=== PATIENT | female | born 2005 | race Caucasian/White ===

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

== ENCOUNTER 2023-01-02 09:19 | Emergency (ER) | payer BC, OTHER ==
[~2023-01-02] VITALS: Ht 149.9 cm; Wt 52.3 kg
--- OUTSIDE RECORDS SUMMARY | ~2023-01-02 | XMS | Continuity of Care Document ---
Demographics + + + | Address | [address] | | | [place] [address] | + + + | Preferred Language | Unknown | + + + | Marital Status | | + + + | Latter-Day Affiliation | Unknown | + + + | Race | White | + + + | Ethnic Group | Not or | + + + Author + + + | Author | [facility] | + + + | Organization | [facility] | + + + | Address | [address] | | | [place] [address] | + + + | Phone | | + + + Care Team Providers + + + + | [facility] Attendant Name | Role | Phone | + + + + Unavailable | Unavailable | + + + + Unavailable | Unavailable | + + + + Unavailable | Unavailable | + + + + Unavailable | Unavailable | + + + + Unavailable | Unavailable | + + + + Allergies and Intolerances + + + + + + | date | description | facility | reaction | severity | + + + + + + | (no date) | No Known Drug | [facility] | (no reaction) | (no severity) | | | Allergies | | | | + + + + + + Encounters No information. Functional Status No information. Immunizations No information. Medications + + + + | date | description | facility | + + + + | 2022-11-01 00:00 | CETIRIZINE HCL | [facility] | + + + + | 2022-12-06 00:00 | CETIRIZINE HCL | [facility] | + + + + | 2022-12-19 00:00 | CETIRIZINE HCL | [facility] | + + + + | 2022-12-22 00:00 | CETIRIZINE HCL | [facility] | + + + + | 2021-11-13 00:00 | CETIRIZINE HCL | [facility] | + + + + | 2021-11-22 00:00 | CETIRIZINE HCL | [facility] | + + + + | 2021-12-01 00:00 | CETIRIZINE HCL | [facility] | + + + + | 2022-04-27 00:00 | CETIRIZINE HCL | [facility] | + + + + | 2022-11-01 00:00 | CETIRIZINE HCL | [facility] | + + + + | 2022-12-06 00:00 | CETIRIZINE HCL | [facility] | + + + + | 2022-12-19 00:00 | CETIRIZINE HCL | [facility] | + + + + | 2022-12-22 00:00 | CETIRIZINE HCL | [facility] | + + + + | 2021-11-13 00:00 | DIPHENHYDRAMINE HCL | [facility] | + + + + | 2021-11-22 00:00 | DIPHENHYDRAMINE HCL | [facility] | + + + + | 2021-12-01 00:00 | DIPHENHYDRAMINE HCL | [facility] | + + + + | 2022-04-27 00:00 | DIPHENHYDRAMINE HCL | [facility] | + + + + | 2022-11-01 00:00 | DIPHENHYDRAMINE HCL | [facility] | + + + + | 2022-12-06 00:00 | DIPHENHYDRAMINE HCL | [facility] | + + + + | 2022-12-19 00:00 | DIPHENHYDRAMINE HCL | [facility] | + + + + | 2022-12-22 00:00 | DIPHENHYDRAMINE HCL | [facility] | + + + + | 2021-11-13 00:00 | WHEAT DEXTRIN | [facility] | + + + + | 2021-11-22 00:00 | WHEAT DEXTRIN | [facility] | + + + + | 2021-12-01 00:00 | WHEAT DEXTRIN | [facility] | + + + + | 2022-04-27 00:00 | WHEAT DEXTRIN | [facility] | + + + + | 2022-11-01 00:00 | WHEAT DEXTRIN | [facility] | + + + + | 2022-12-06 00:00 | WHEAT DEXTRIN | [facility] | + + + + | 2022-12-19 00:00 | WHEAT DEXTRIN | [facility] | + + + + | 2022-12-22 00:00 | WHEAT DEXTRIN | [facility] | + + + + | 2021-11-13 00:00 | DOCUSATE CALCIUM | [facility] | + + + + | 2021-11-22 00:00 | DOCUSATE CALCIUM | [facility] | + + + + | 2021-12-01 00:00 | DOCUSATE CALCIUM | [facility] | + + + + | 2022-04-27 00:00 | DOCUSATE CALCIUM | [facility] | + + + + | 2022-11-01 00:00 | DOCUSATE CALCIUM | [facility] | + + + + | 2022-12-06 00:00 | DOCUSATE CALCIUM | [facility] | + + + + | 2022-12-19 00:00 | DOCUSATE CALCIUM | [facility] | + + + + | 2022-12-22 00:00 | DOCUSATE CALCIUM | [facility] | + + + + | 2021-11-13 00:00 | FLUTICASONE PROPIONATE 50 | [facility] | | | [facility] | | + + + + | 2021-11-22 00:00 | FLUTICASONE PROPIONATE 50 | [facility] | | | [facility] | | + + + + | 2021-12-01 00:00 | FLUTICASONE PROPIONATE 50 | [facility] | | | [facility] | | + + + + | 2022-04-27 00:00 | FLUTICASONE PROPIONATE 50 | [facility] | | | [facility]CG | | + + + + | 2021-11-01 00:00 | CEPHALEXIN | [facility] | + + + + | 2021-11-01 00:00 | CEPHALEXIN | [facility] | + + + + | 2021-11-01 00:00 | CEPHALEXIN | [facility] | + + + + | 2021-11-13 00:00 | LITHIUM CARBONATE | [facility] | + + + + | 2021-11-22 00:00 | LITHIUM CARBONATE | [facility] | + + + + | 2021-12-01 00:00 | LITHIUM CARBONATE | [facility] | + + + + | 2022-04-27 00:00 | LITHIUM CARBONATE | [facility] | + + + + | 2022-11-01 00:00 | LITHIUM CARBONATE | [facility] | + + + + | 2022-12-06 00:00 | LITHIUM CARBONATE | [facility] | + + + + | 2022-12-19 00:00 | LITHIUM CARBONATE | [facility] | + + + + | 2022-12-22 00:00 | LITHIUM CARBONATE | [facility] | + + + + | 2021-11-13 00:00 | MELATONIN | [facility] | + + + + | 2021-11-22 00:00 | MELATONIN | [facility] | + + + + | 2021-12-01 00:00 | MELATONIN | [facility] | + + + + | 2022-04-27 00:00 | MELATONIN | [facility] | + + + + | 2022-11-01 00:00 | MELATONIN | [facility] | + + + + | 2022-12-06 00:00 | MELATONIN | [facility] | + + + + | 2022-12-19 00:00 | MELATONIN | [facility] | + + + + | 2022-12-22 00:00 | MELATONIN | [facility] | + + + + | 2021-11-13 00:00 | OLANZAPINE | [facility] | + + + + | 2021-11-22 00:00 | OLANZAPINE | [facility] | + + + + | 2021-12-01 00:00 | OLANZAPINE | [facility] | + + + + | 2022-04-27 00:00 | OLANZAPINE | [facility] | + + + + | 2022-11-01 00:00 | OLANZAPINE | [facility] | + + + + | 2022-12-06 00:00 | OLANZAPINE | [facility] | + + + + | 2022-12-19 00:00 | OLANZAPINE | [facility] | + + + + | 2022-12-22 00:00 | OLANZAPINE | [facility] | + + + + | 2021-11-13 00:00 | OLANZAPINE | [facility] | + + + + | 2021-11-22 00:00 | OLANZAPINE | [facility] | + + + + | 2021-12-01 00:00 | OLANZAPINE | [facility] | + + + + | 2022-04-27 00:00 | OLANZAPINE | [facility] | + + + + | 2021-11-13 00:00 | PRAZOSIN HCL | [facility] | + + + + | 2021-11-22 00:00 | PRAZOSIN HCL | [facility] | + + + + | 2021-12-01 00:00 | PRAZOSIN HCL | [facility] | + + + + | 2022-04-27 00:00 | PRAZOSIN HCL | [facility] | + + + + | 2022-11-01 00:00 | PRAZOSIN HCL | [facility] | + + + + | 2022-12-06 00:00 | PRAZOSIN HCL | [facility] | + + + + | 2022-12-19 00:00 | PRAZOSIN HCL | [facility] | + + + + | 2022-12-22 00:00 | PRAZOSIN HCL | [facility] | + + + + | 2021-11-13 00:00 | ACETAMINOPHEN | [facility] | + + + + | 2021-11-22 00:00 | ACETAMINOPHEN | [facility] | + + + + | 2021-12-01 00:00 | ACETAMINOPHEN | [facility] | + + + + | 2022-04-27 00:00 | ACETAMINOPHEN | [facility] | + + + + | 2022-11-01 00:00 | ACETAMINOPHEN | [facility] | + + + + | 2022-12-06 00:00 | ACETAMINOPHEN | [facility] | + + + + | 2022-12-19 00:00 | ACETAMINOPHEN | [facility] | + + + + | 2022-12-22 00:00 | ACETAMINOPHEN | [facility] | + + + + | 2022-04-27 00:00 | CIPROFLOXACIN HCL/DEXAMETH | [facility] | | | | | + + + + | 2022-12-19 00:00 | AMOXICILLIN/POTASSIUM CLAV | [facility] | | | | | + + + + | 2021-11-13 00:00 | VENLAFAXINE HCL | [facility] | + + + + | 2021-11-22 00:00 | VENLAFAXINE HCL | [facility] | + + + + | 2021-12-01 00:00 | VENLAFAXINE HCL | [facility] | + + + + | 2022-04-27 00:00 | VENLAFAXINE HCL | [facility] | + + + + | 2022-11-01 00:00 | VENLAFAXINE HCL | [facility] | + + + + | 2022-12-06 00:00 | VENLAFAXINE HCL | [facility] | + + + + | 2022-12-19 00:00 | VENLAFAXINE HCL | [facility] | + + + + | 2022-12-22 00:00 | VENLAFAXINE HCL | [facility] | + + + + | 2021-11-13 00:00 | HYDROCODONE | [facility] | | | BIT/ACETAMINOPHEN | | + + + + | 2021-11-22 00:00 | HYDROCODONE | [facility] | | | BIT/ACETAMINOPHEN | | + + + + | 2021-12-01 00:00 | HYDROCODONE | [facility] | | | BIT/ACETAMINOPHEN | | + + + + | 2022-04-27 00:00 | HYDROCODONE | [facility] | | | BIT/ACETAMINOPHEN | | + + + + | 2022-11-01 00:00 | HYDROCODONE | [facility] | | | BIT/ACETAMINOPHEN | | + + + + | 2022-12-06 00:00 | HYDROCODONE | [facility] | | | BIT/ACETAMINOPHEN | | + + + + | 2022-12-19 00:00 | HYDROCODONE | [facility] | | | BIT/ACETAMINOPHEN | | + + + + | 2022-12-22 00:00 | HYDROCODONE | [facility] | | | BIT/ACETAMINOPHEN | | + + + + | 2021-11-13 00:00 | CLONIDINE HCL | [facility] | + + + + | 2021-11-22 00:00 | CLONIDINE HCL | [facility] | + + + + | 2021-12-01 00:00 | CLONIDINE HCL | [facility] | + + + + | 2022-04-27 00:00 | CLONIDINE HCL | [facility] | + + + + | 2022-11-01 00:00 | CLONIDINE HCL | [facility] | + + + + | 2022-12-06 00:00 | CLONIDINE HCL | [facility] | + + + + | 2022-12-19 00:00 | CLONIDINE HCL | [facility] | + + + + | 2022-12-22 00:00 | CLONIDINE HCL | [facility] | + + + + | 2021-11-13 00:00 | LOPERAMIDE HCL | [facility] | + + + + | 2021-11-22 00:00 | LOPERAMIDE HCL | [facility] | + + + + | 2021-12-01 00:00 | LOPERAMIDE HCL | [facility] | + + + + | 2022-04-27 00:00 | LOPERAMIDE HCL | [facility] | + + + + Problems + + + + | date | description | facility | + + + + | 2021-10-09 00:00 | Rectal hemorrhage | [facility] | + + + + | 2021-10-09 00:00 | Rectal hemorrhage | [facility] | + + + + | 2021-10-09 00:00 | Rectal hemorrhage | [facility] | + + + + | 2021-10-09 00:00 | Metal foreign body in | [facility] | | | abdomen | | + + + + | 2021-10-09 00:00 | Metal foreign body in | [facility] | | | abdomen | | + + + + | 2021-10-09 00:00 | Metal foreign body in | [facility] | | | abdomen | | + + + + | 2021-10-09 18:07 | CONSTIPATION, UNSPECIFIED | [facility] | + + + + | 2021-10-09 18:07 | HEMORRHAGE OF ANUS AND | [facility] | | | RECTUM | | + + + + | 2021-10-09 18:07 | COGNITIVE COMMUNICATION | [facility] | | | DEFICIT | | + + + + | 2021-10-09 18:07 | SUPERFICIAL FOREIGN BODY | [facility] | | | OF ABDOMINAL WALL, INIT | | | | ENCNTR | | + + + + | 2021-10-09 18:07 | PNCTR W FB OF ABD WALL, | [facility] | | | UNSP Q W PENET PERIT CAV, | | + + + + | 2021-10-09 18:07 | OTH FOREIGN BODY OR OBJECT | [facility] | | | ENTERING THROUGH SKIN, | | + + + + | 2021-10-09 18:07 | OTHER MANAGER PHILOSOPHY (CURRENT) | [facility] | | | DRUG THERAPY | | + + + + | 2021-11-01 00:00 | Wound disruption | [facility] | + + + + | 2021-11-01 00:00 | Wound disruption | [facility] | + + + + | 2021-11-01 00:00 | Wound disruption | [facility] | + + + + | 2021-11-20 00:00 | Alcoholic intoxication | [facility] | + + + + | 2021-11-20 00:00 | Alcoholic intoxication | [facility] | + + + + | 2021-11-20 00:00 | Alcoholic intoxication | [facility] | + + + + | 2021-11-24 00:00 | Intentional ibuprofen | [facility] | | | overdose | | + + + + | 2021-11-24 00:00 | Intentional ibuprofen | [facility] | | | overdose | | + + + + | 2021-11-28 00:00 | Intentional overdose | [facility] | + + + + | 2021-11-28 00:00 | Intentional overdose | [facility] | + + + + | 2022-02-23 10:33 | CEREBRAL PALSY, | [facility] | | | UNSPECIFIED | | + + + + | 2022-02-23 10:33 | UNSPECIFIED ABNORMALITIES | [facility] | | | OF GAIT AND MOBILITY | | + + + + | 2022-03-09 08:50 | CEREBRAL PALSY, | [facility] | | | UNSPECIFIED | | + + + + | 2022-04-13 08:24 | CEREBRAL PALSY, | [facility] | | | UNSPECIFIED | | + + + + | 2022-04-26 20:55 | OTORRHAGIA, RIGHT EAR | [facility] | + + + + | 2022-04-27 00:00 | Blood in right ear canal | [facility] | + + + + | 2022-04-27 00:00 | Blood in right ear canal | [facility] | + + + + | 2022-05-12 09:35 | CEREBRAL PALSY, | [facility] | | | UNSPECIFIED | | + + + + | 2022-06-29 09:24 | RESIDUAL FOREIGN BODY IN | [facility] | | | SOFT TISSUE | | + + + + | 2022-06-29 15:16 | FUNCTIONAL URINARY | [facility] | | | INCONTINENCE | | + + + + | 2022-07-23 15:02 | FUNCTIONAL URINARY | [facility] | | | INCONTINENCE | | + + + + | 2022-08-04 12:46 | UNSPECIFIED LUMP IN THE | [facility] | | | LEFT BREAST, UNSPECIFIED | | | | QUADRANT | | + + + + | 2022-10-26 00:00 | Suicidal ideation | [facility] | + + + + | 2022-10-26 00:00 | Suicidal ideation | [facility] | + + + + | 2022-10-26 00:00 | Self-cutting of wrist | [facility] | + + + + | 2022-10-26 00:00 | Self-cutting of wrist | [facility] | + + + + | 2022-10-26 18:29 | SUICIDAL IDEATIONS | [facility] | + + + + | 2022-10-26 18:29 | INTENTIONAL SELF-HARM BY | [facility] | | | UNSP SHARP OBJECT, INIT E | | + + + + | 2022-10-26 18:29 | OTHER MANAGER PHILOSOPHY (CURRENT) | [facility] | | | DRUG THERAPY | | + + + + | 2022-12-05 22:31 | Mental disorder, not | [facility] | | | otherwise specified | | + + + + | 2022-12-05 22:31 | RESTLESSNESS AND AGITATION | [facility] | | | | | + + + + | 2022-12-05 22:31 | LACERATION W/O FOREIGN | [facility] | | | BODY OF RIGHT FOREARM, INIT | | | | | | + + + + | 2022-12-05 22:31 | INTENTIONAL SELF-HARM BY | [facility] | | | UNSP SHARP OBJECT, INIT E | | + + + + | 2022-12-05 22:31 | OTHER MANAGER PHILOSOPHY (CURRENT) | [facility] | | | DRUG THERAPY | | + + + + | 2022-12-18 15:43 | RESIDUAL FOREIGN BODY IN | [facility] | | | SOFT TISSUE | | + + + + | 2022-12-18 15:43 | NONSUICIDAL SELF-HARM | [facility] | + + + + | 2022-12-19 00:00 | Cellulitis of right ankle | [facility] | + + + + | 2022-12-19 20:38 | CELLULITIS OF RIGHT LOWER | [facility] | | | LIMB | | + + + + | 2022-12-19 20:38 | LOCALIZED SWELLING, MASS | [facility] | | | AND LUMP, RIGHT LOWER LIMB | | + + + + | 2022-12-19 20:38 | OTHER MANAGER PHILOSOPHY (CURRENT) | [facility] | | | DRUG THERAPY | | + + + + | 2022-12-22 00:00 | Contusion of left lower | [facility] | | | leg | | + + + + | 2022-12-22 18:51 | PAIN IN LEFT LOWER LEG | [facility] | + + + + | 2022-12-22 18:51 | CONTUSION OF LEFT LOWER | [facility] | | | LEG, INITIAL ENCOUNTER | | + + + + | 2022-12-22 18:51 | SUPERFICIAL FOREIGN BODY, | [facility] | | | LEFT LOWER LEG, INITIAL | | + + + + | 2022-12-22 18:51 | FALL SAME LEV FROM | [facility] | | | SLIP/TRIP W STRIKE AGNST | | | | OTH OB | | + + + + | 2022-12-22 18:51 | OTHER MANAGER PHILOSOPHY (CURRENT) | [facility] | | | DRUG THERAPY | | + + + + Procedures + + + + | date | description | facility | + + + + | 2021-10-10 00:00 | EXTIRPATION OF MATTER FROM [facility] | | | TONSILS, OPEN APPROACH | | + + + + | 2021-10-10 00:00 | EXTIRPATION OF MATTER FROM [facility] | | | TONSILS, OPEN APPROACH | | + + + + | 2021-10-10 00:00 | EXTIRPATION OF MATTER FROM | [facility] | | | PERITONEAL CAVITY, OPEN | | | | APPROACH | | + + + + | 2021-10-10 00:00 | EXTIRPATION OF MATTER FROM | [facility] | | | PERITONEAL CAVITY, OPEN | | | | APPROACH | | + + + + | 2021-10-09 00:00 | REMOVE PHARYNX FOREIGN | [facility] | | | BODY | | + + + + | 2021-10-09 00:00 | REMOVE PHARYNX FOREIGN | [facility] | | | BODY | | + + + + | 2021-10-09 00:00 | REMOVE PHARYNX FOREIGN | [facility] | | | BODY | | + + + + | 2021-10-09 00:00 | REMOVE RECTAL OBSTRUCTION | [facility] | + + + + | 2021-10-09 00:00 | REMOVE RECTAL OBSTRUCTION | [facility] | + + + + | 2021-10-09 00:00 | REMOVE RECTAL OBSTRUCTION | [facility] | + + + + | 2021-10-09 00:00 | REMOVE FOREIGN BODY | [facility] | | | ADBOMEN | | + + + + | 2021-10-09 00:00 | REMOVE FOREIGN BODY | [facility] | | | ADBOMEN | | + + + + | 2021-10-09 00:00 | REMOVE FOREIGN BODY | [facility] | | | ADBOMEN | | + + + + Results/Labs +--------+--------+ +---------+--------+---------+ | test | date | facility | value | unit | notes | +--------+--------+ +---------+--------+---------+ + + | Result panel 1 | + + + + + +--------+ + + | | 2021-10-09 | [facility] | 11.0 | (missing) | (missing) | | (unavailable | 19:40 | [facility] | | | | + + + +--------+ + + + + | Result panel 2 | + + + + + +--------+ + + | | 2021-10-09 | [facility] | 4.27 | (missing) | (missing) | | (unavailable | 19:40 | [facility] | | | | + + + +--------+ + + + + | Result panel 3 | + + + + + +--------+ + + | | 2021-10-09 | [facility] | 11.7 | (missing) | (missing) | | (unavailable | 19:40 | [facility] | | | | + + + +--------+ + + + + | Result panel 4 | + + + + + +--------+ + + | | 2021-10-09 | [facility] | 35.4 | (missing) | (missing) | | (unavailable | 19:40 | [facility] | | | | + + + +--------+ + + + + | Result panel 5 | + + + + + +--------+ + + | | 2021-10-09 | [facility] | 83.0 | (missing) | (missing) | | (unavailable | 19:40 | [facility] | | | | + + + +--------+ + + + + | Result panel 6 | + + + + + +--------+ + + | | 2021-10-09 | [facility] | 27.4 | (missing) | (missing) | | (unavailable | 19:40 | [facility] | | | | + + + +--------+ + + + + | Result panel 7 | + + + + + +--------+ + + | | 2021-10-09 | [facility] | 33.1 | (missing) | (missing) | | (unavailable | 19:40 | [facility] | | | | + + + +--------+ + + + + | Result panel 8 | + + + + + +--------+ + + | | 2021-10-09 | [facility] | 13.7 | (missing) | (missing) | | (unavailable | 19:40 | [facility] | | | | + + + +--------+ + + + + | Result panel 9 | + + + + + +-------+ + + | | 2021-10-09 | [facility] | 415 | (missing) | (missing) | | (unavailable | 19:40 | [facility] | | | | + + + +-------+ + + + + | Result panel 10 | + + + + + +--------+ + + | | 2021-10-09 | [facility] | 75.0 | (missing) | (missing) | | (unavailable | 19:40 | [facility] | | | | + + + +--------+ + + + + | Result panel 11 | + + + + + +--------+ + + | | 2021-10-09 | [facility] | 20.0 | (missing) | (missing) | | (unavailable | 19:40 | [facility] | | | | + + + +--------+ + + + + | Result panel 12 | + + + + + +-------+ + + | | 2021-10-09 | [facility] | 5.0 | (missing) | (missing) | | (unavailable | 19:40 | [facility] | | | | + + + +-------+ + + + + | Result panel 13 | + + + + + +-------+ + + | | 2021-10-09 | [facility] | 0.0 | (missing) | (missing) | | (unavailable | 19:40 | [facility] | | | | + + + +-------+ + + + + | Result panel 14 | + + + + + +-------+ + + | | 2021-10-09 | [facility] | 0.0 | (missing) | (missing) | | (unavailable | 19:40 | [facility] | | | | + + + +-------+ + + + + | Result panel 15 | + + + + + +--------+ + + | | 2021-10-09 | [facility] | 12.9 | (missing) | (missing) | | (unavailable | 19:40 | [facility] | | | | + + + +--------+ + + + + | Result panel 16 | + + + + + +--------+ + + | | 2021-10-09 | [facility] | 0.99 | (missing) | (missing) | | (unavailable | 19:40 | [facility] | | | | + + + +--------+ + + + + | Result panel 17 | + + + + + +--------+ + + | | 2021-10-09 | [facility] | 33.9 | (missing) | (missing) | | (unavailable | 19:40 | [facility] | | | | + + + +--------+ + + + + | Result panel 18 | + + + + + +------+---------+ + | | 2021-10-09 | [facility] | 93 | mg/dL | (missing) | | (unavailable | 19:40 | [facility] | | | | + + + +------+---------+ + + + | Result panel 19 | + + + + + +-----+---------+ + | | 2021-10-09 | [facility] | 8 | mg/dL | (missing) | | (unavailable | 19:40 | [facility] | | | | + + + +-----+---------+ + + + | Result panel 20 | + + + + + +--------+---------+ + | | 2021-10-09 | [facility] | 0.76 | mg/dL | (missing) | | (unavailable | 19:40 | [facility] | | | | + + + +--------+---------+ + + + | Result panel 21 | + + + + + + + + + | | 2021-10-09 | [facility] | > 60.00 | (missing) | (missing) | | (unavailable | 19:40 | [facility] | | | | + + + + + + + + + | Result panel 22 | + + + + + +---------+ + + | | 2021-10-09 | [facility] | 10.52 | (missing) | (missing) | | (unavailable | 19:40 | [facility] | | | | + + + +---------+ + + + + | Result panel 23 | + + + + + +-------+ + + | | 2021-10-09 | [facility] | 137 | (missing) | (missing) | | (unavailable | 19:40 | [facility] | | | | + + + +-------+ + + + + | Result panel 24 | + + + + + +-------+ + + | | 2021-10-09 | [facility] | 3.7 | (missing) | (missing) | | (unavailable | 19:40 | [facility] | | | | + + + +-------+ + + + + | Result panel 25 | + + + + + +-------+ + + | | 2021-10-09 | [facility] | 104 | (missing) | (missing) | | (unavailable | 19:40 | [facility] | | | | + + + +-------+ + + + + | Result panel 26 | + + + + + +------+ + + | | 2021-10-09 | [facility] | 26 | (missing) | (missing) | | (unavailable | 19:40 | [facility] | | | | + + + +------+ + + + + | Result panel 27 | + + + + + +--------+ + + | | 2021-10-09 | [facility] | 10.7 | (missing) | (missing) | | (unavailable | 19:40 | [facility] | | | | + + + +--------+ + + + + | Result panel 28 | + + + + + +-------+---------+ + | | 2021-10-09 | [facility] | 9.6 | mg/dL | (missing) | | (unavailable | 19:40 | [facility] | | | | + + + +-------+---------+ + + + | Result panel 29 | + + + + + +-------+ + + | | 2021-10-09 | [facility] | 8.1 | (missing) | (missing) | | (unavailable | 19:40 | [facility] | | | | + + + +-------+ + + + + | Result panel 30 | + + + + + +-------+ + + | | 2021-10-09 | [facility] | 3.9 | (missing) | (missing) | | (unavailable | 19:40 | [facility] | | | | + + + +-------+ + + + + | Result panel 31 | + + + + + +-------+ + + | | 2021-10-09 | [facility] | 4.2 | (missing) | (missing) | | (unavailable | 19:40 | [facility] | | | | + + + +-------+ + + + + | Result panel 32 | + + + + + +--------+ + + | | 2021-10-09 | [facility] | 0.93 | (missing) | (missing) | | (unavailable | 19:40 | [facility] | | | | + + + +--------+ + + + + | Result panel 33 | + + + + + +-------+ + + | | 2021-10-09 | [facility] | 0.4 | (missing) | (missing) | | (unavailable | 19:40 | [facility] | | | | + + + +-------+ + + + + | Result panel 34 | + + + + + +------+ + + | | 2021-10-09 | [facility] | 18 | (missing) | (missing) | | (unavailable | 19:40 | [facility] | | | | + + + +------+ + + + + | Result panel 35 | + + + + + +------+ + + | | 2021-10-09 | [facility] | 18 | (missing) | (missing) | | (unavailable | 19:40 | [facility] | | | | + + + +------+ + + + + | Result panel 36 | + + + + + +------+ + + | | 2021-10-09 | [facility] | 96 | (missing) | (missing) | | (unavailable | 19:40 | [facility] | | | | + + + +------+ + + + + | Result panel 37 | + + + + + + + + + | | 2021-10-09 | [facility] | NEGATIVE | (missing) | (missing) | | (unavailable | 19:40 | [facility] | | | | + + + + + + + + + | Result panel 38 | + + + + + +--------+ + + | | 2021-10-09 | [facility] | 12.9 | (missing) | (missing) | | (unavailable | 19:40 | [facility] | | | | + + + +--------+ + + + + | Result panel 39 | + + + + + +--------+ + + | | 2021-10-09 | [facility] | 0.99 | (missing) | (missing) | | (unavailable | 19:40 | [facility] | | | | + + + +--------+ + + + + | Result panel 40 | + + + + + +--------+ + + | | 2021-10-09 | [facility] | 33.9 | (missing) | (missing) | | (unavailable | 19:40 | [facility] | | | | + + + +--------+ + + + + | Result panel 41 | + + + + + +--------+ + + | | 2021-10-09 | [facility] | 12.9 | (missing) | (missing) | | (unavailable | 19:40 | [facility] | | | | + + + +--------+ + + + + | Result panel 42 | + + + + + +--------+ + + | | 2021-10-09 | [facility] | 0.99 | (missing) | (missing) | | (unavailable | 19:40 | [facility] | | | | + + + +--------+ + + + + | Result panel 43 | + + + + + +--------+ + + | | 2021-10-09 | [facility] | 33.9 | (missing) | (missing) | | (unavailable | 19:40 | [facility] | | | | + + + +--------+ + + + + | Result panel 44 | + + + + + + + + + | | 2021-10-09 | [facility] | NEGATIVE | (missing) | (missing) | | (unavailable | 22:02 | [facility] | | | | + + + + + + + + + | Result panel 45 | + + + + + + + + + | | 2021-10-09 | [facility] | NEGATIVE | (missing) | (missing) | | (unavailable | 22:02 | [facility] | | | | + + + + + + + + + | Result panel 46 | + + + + + + + + + | | 2021-10-09 | [facility] | NEGATIVE | (missing) | (missing) | | (unavailable | 22:02 | [facility] | | | | + + + + + + + + + | Result panel 47 | + + + + + + + + + | | 2021-10-09 | [facility] | NEGATIVE | (missing) | (missing) | | (unavailable | 22:02 | [facility] | | | | + + + + + + + + + | Result panel 48 | + + + + + +--------+ + + | | 2021-11-20 | [facility] | 12.7 | (missing) | (missing) | | (unavailable | 18:40 | [facility] | | | | + + + +--------+ + + + + | Result panel 49 | + + + + + +--------+ + + | | 2021-11-20 | [facility] | 4.38 | (missing) | (missing) | | (unavailable | 18:40 | [facility] | | | | + + + +--------+ + + + + | Result panel 50 | + + + + + +--------+ + + | | 2021-11-20 | [facility] | 11.8 | (missing) | (missing) | | (unavailable | 18:40 | [facility] | | | | + + + +--------+ + + + + | Result panel 51 | + + + + + +--------+ + + | | 2021-11-20 | [facility] | 34.9 | (missing) | (missing) | | (unavailable | 18:40 | [facility] | | | | + + + +--------+ + + + + | Result panel 52 | + + + + + +--------+ + + | | 2021-11-20 | [facility] | 79.7 | (missing) | (missing) | | (unavailable | 18:40 | [facility] | | | | + + + +--------+ + + + + | Result panel 53 | + + + + + +--------+ + + | | 2021-11-20 | [facility] | 27.0 | (missing) | (missing) | | (unavailable | 18:40 | [facility] | | | | + + + +--------+ + + + + | Result panel 54 | + + + + + +--------+ + + | | 2021-11-20 | [facility] | 33.9 | (missing) | (missing) | | (unavailable | 18:40 | [facility] | | | | + + + +--------+ + + + + | Result panel 55 | + + + + + +--------+ + + | | 2021-11-20 | [facility] | 13.3 | (missing) | (missing) | | (unavailable | 18:40 | [facility] | | | | + + + +--------+ + + + + | Result panel 56 | + + + + + +-------+ + + | | 2021-11-20 | [facility] | 396 | (missing) | (missing) | | (unavailable | 18:40 | [facility] | | | | + + + +-------+ + + + + | Result panel 57 | + + + + + +--------+ + + | | 2021-11-20 | [facility] | 76.5 | (missing) | (missing) | | (unavailable | 18:40 | [facility] | | | | + + + +--------+ + + + + | Result panel 58 | + + + + + +--------+ + + | | 2021-11-20 | [facility] | 18.6 | (missing) | (missing) | | (unavailable | 18:40 | [facility] | | | | + + + +--------+ + + + + | Result panel 59 | + + + + + +-------+ + + | | 2021-11-20 | [facility] | 4.8 | (missing) | (missing) | | (unavailable | 18:40 | [facility] | | | | + + + +-------+ + + + + | Result panel 60 | + + + + + +-------+ + + | | 2021-11-20 | [facility] | 0.0 | (missing) | (missing) | | (unavailable | 18:40 | [facility] | | | | + + + +-------+ + + + + | Result panel 61 | + + + + + +-------+ + + | | 2021-11-20 | [facility] | 0.1 | (missing) | (missing) | | (unavailable | 18:40 | [facility] | | | | + + + +-------+ + + + + | Result panel 62 | + + + + + +-------+ + + | | 2021-11-20 | [facility] | 8.2 | (missing) | (missing) | | (unavailable | 18:40 | [facility] | | | | + + + +-------+ + + + + | Result panel 63 | + + + + + +-------+ + + | | 2021-11-20 | [facility] | 3.9 | (missing) | (missing) | | (unavailable | 18:40 | [facility] | | | | + + + +-------+ + + + + | Result panel 64 | + + + + + +-------+ + + | | 2021-11-20 | [facility] | 4.3 | (missing) | (missing) | | (unavailable | 18:40 | [facility] | | | | + + + +-------+ + + + + | Result panel 65 | + + + + + +--------+ + + | | 2021-11-20 | [facility] | 0.91 | (missing) | (missing) | | (unavailable | 18:40 | [facility] | | | | + + + +--------+ + + + + | Result panel 66 | + + + + + +-------+ + + | | 2021-11-20 | [facility] | 0.2 | (missing) | (missing) | | (unavailable | 18:40 | [facility] | | | | + + + +-------+ + + + + | Result panel 67 | + + + + + +------+ + + | | 2021-11-20 | [facility] | 19 | (missing) | (missing) | | (unavailable | 18:40 | [facility] | | | | + + + +------+ + + + + | Result panel 68 | + + + + + +------+ + + | | 2021-11-20 | [facility] | 15 | (missing) | (missing) | | (unavailable | 18:40 | [facility] | | | | + + + +------+ + + + + | Result panel 69 | + + + + + +------+ + + | | 2021-11-20 | [facility] | 88 | (missing) | (missing) | | (unavailable | 18:40 | [facility] | | | | + + + +------+ + + + + | Result panel 70 | + + + + + +---------+ + + | | 2021-11-20 | [facility] | 3.621 | (missing) | (missing) | | (unavailable | 18:40 | [facility] | | | | + + + +---------+ + + + + | Result panel 71 | + + + + + + + + + | | 2021-11-20 | [facility] | NEGATIVE | (missing) | (missing) | | (unavailable | 18:40 | [facility] | | | | + + + + + + + + + | Result panel 72 | + + + + + +--------+ + + | | 2021-11-20 | [facility] | < 10 | (missing) | (missing) | | (unavailable | 18:40 | [facility] | | | | + + + +--------+ + + + + | Result panel 73 | + + + + + + + + + | | 2021-11-20 | [facility] | < 2.0 mg/dL | (missing) | (missing) | | (unavailable | 18:40 | [facility] | | | | + + + + + + + + + | Result panel 74 | + + + + + +------+ + + | | 2021-11-20 | [facility] | // | (missing) | (missing) | | (unavailable | 18:40 | [facility] | | | | + + + +------+ + + + + | Result panel 75 | + + + + + +-------+ + + | | 2021-11-20 | [facility] | 1.1 | (missing) | (missing) | | (unavailable | 18:40 | [facility] | | | | + + + +-------+ + + + + | Result panel 76 | + + + + + +------+ + + | | 2021-11-20 | [facility] | // | (missing) | (missing) | | (unavailable | 18:40 | [facility] | | | | + + + +------+ + + + + | Result panel 77 | + + + + + +-------+ + + | | 2021-11-20 | [facility] | 131 | (missing) | (missing) | | (unavailable | 18:40 | [facility] | | | | + + + +-------+ + + + + | Result panel 78 | + + + + + + + + + | | 2021-11-20 | [facility] | POSITIVE | (missing) | (missing) | | (unavailable | 19:10 | [facility] | | | | + + + + + + + + + | Result panel 79 | + + + + + + + + + | | 2021-11-20 | [facility] | NEGATIVE | (missing) | (missing) | | (unavailable | 19:10 | [facility] | | | | + + + + + + + + + | Result panel 80 | + + + + + + + + + | | 2021-11-20 | [facility] | NEGATIVE | (missing) | (missing) | | (unavailable | 19:10 | [facility] | | | | + + + + + + + + + | Result panel 81 | + + + + + + + + + | | 2021-11-20 | [facility] | NEGATIVE | (missing) | (missing) | | (unavailable | 19:10 | [facility] | | | | + + + + + + + + + | Result panel 82 | + + + + + + + + + | | 2021-11-20 | [facility] | YELLOW | (missing) | (missing) | | (unavailable | 19:45 | [facility] | | | | + + + + + + + + + | Result panel 83 | + + + + + +---------+ + + | | 2021-11-20 | [facility] | CLEAR | (missing) | (missing) | | (unavailable | 19:45 | [facility] | | | | + + + +---------+ + + + + | Result panel 84 | + + + + + + + + + | | 2021-11-20 | [facility] | NEGATIVE | (missing) | (missing) | | (unavailable | 19:45 | [facility] | | | | + + + + + + + + + | Result panel 85 | + + + + + + + + + | | 2021-11-20 | [facility] | NEGATIVE | (missing) | (missing) | | (unavailable | 19:45 | [facility] | | | | + + + + + + + + + | Result panel 86 | + + + + + + + + + | | 2021-11-20 | [facility] | NEGATIVE | (missing) | (missing) | | (unavailable | 19:45 | [facility] | | | | + + + + + + + + + | Result panel 87 | + + + + + + + + + | | 2021-11-20 | [facility] | <=1.005 | (missing) | (missing) | | (unavailable | 19:45 | [facility] | | | | + + + + + + + + + | Result panel 88 | + + + + + + + + + | | 2021-11-20 | [facility] | NEGATIVE | (missing) | (missing) | | (unavailable | 19:45 | [facility] | | | | + + + + + + + + + | Result panel 89 | + + + + + +-------+ + + | | 2021-11-20 | [facility] | 5.5 | (missing) | (missing) | | (unavailable | 19:45 | [facility] | | | | + + + +-------+ + + + + | Result panel 90 | + + + + + + + + + | | 2021-11-20 | [facility] | NEGATIVE | (missing) | (missing) | | (unavailable | 19:45 | [facility] | | | | + + + + + + + + + | Result panel 91 | + + + + + + + + + | | 2021-11-20 | [facility] | NORMAL | (missing) | (missing) | | (unavailable | 19:45 | [facility] | | | | + + + + + + + + + | Result panel 92 | + + + + + + + + + | | 2021-11-20 | [facility] | NEGATIVE | (missing) | (missing) | | (unavailable | 19:45 | [facility] | | | | + + + + + + + + + | Result panel 93 | + + + + + + + + + | | 2021-11-20 | [facility] | NEGATIVE | (missing) | (missing) | | (unavailable | 19:45 | [facility] | | | | + + + + + + + + + | Result panel 94 | + + + + + +------+ + + | | 2021-11-20 | [facility] | No | (missing) | (missing) | | (unavailable | 19:45 | [facility] | | | | + + + +------+ + + + + | Result panel 95 | + + + + + + + + + | | 2021-11-20 | [facility] | CLEAN CATCH | (missing) | (missing) | | (unavailable | 19:45 | [facility] | | | | + + + + + + + + + | Result panel 96 | + + + + + + + + + | | 2021-11-20 | [facility] | NEGATIVE | (missing) | (missing) | | (unavailable | 19:45 | [facility] | | | | + + + + + + + + + | Result panel 97 | + + + + + + + + + | | 2021-11-20 | [facility] | NEGATIVE | (missing) | (missing) | | (unavailable | 19:45 | [facility] | | | | + + + + + + + + + | Result panel 98 | + + + + + + + + + | | 2021-11-20 | [facility] | NEGATIVE | (missing) | (missing) | | (unavailable | 19:45 | [facility] | | | | + + + + + + + + + | Result panel 99 | + + + + + + + + + | | 2021-11-20 | [facility] | NEGATIVE | (missing) | (missing) | | (unavailable | 19:45 | [facility] | | | | + + + + + + + + + | Result panel 100 | + + + + + + + + + | | 2021-11-20 | [facility] | NEGATIVE | (missing) | (missing) | | (unavailable | 19:45 | [facility] | | | | + + + + + + + + + | Result panel 101 | + + + + + + + + + | | 2021-11-20 | [facility] | NEGATIVE | (missing) | (missing) | | (unavailable | 19:45 | [facility] | | | | + + + + + + + + + | Result panel 102 | + + + + + + + + + | | 2021-11-20 | [facility] | NEGATIVE | (missing) | (missing) | | (unavailable | 19:45 | [facility] | | | | + + + + + + + + + | Result panel 103 | + + + + + + + + + | | 2021-11-20 | [facility] | NEGATIVE | (missing) | (missing) | | (unavailable | 19:45 | [facility] | | | | + + + + + + + + + | Result panel 104 | + + + + + + + + + | | 2021-11-20 | [facility] | NEGATIVE | (missing) | (missing) | | (unavailable | 19:45 | [facility] | | | | + + + + + + + + + | Result panel 105 | + + + + + + + + + | | 2021-11-20 | [facility] | NEGATIVE | (missing) | (missing) | | (unavailable | 19:45 | [facility] | | | | + + + + + + + + + | Result panel 106 | + + + + + + + + + | | 2021-11-20 | [facility] | NEGATIVE | (missing) | (missing) | | (unavailable | 19:45 | [facility] | | | | + + + + + + + + + | Result panel 107 | + + + + + + + + + | | 2021-11-20 | [facility] | NEGATIVE | (missing) | (missing) | | (unavailable | 19:45 | [facility] | | | | + + + + + + + + + | Result panel 108 | + + + + + + + + + | | 2021-11-20 | [facility] | NEGATIVE | (missing) | (missing) | | (unavailable | 19:45 | [facility] | | | | + + + + + + + + + | Result panel 109 | + + + + + +------+ + + | | 2021-11-20 | [facility] | No | (missing) | (missing) | | (unavailable | 19:45 | [facility] | | | | + + + +------+ + + + + | Result panel 110 | + + + + + +-------+---------+ + | | 2021-11-21 | [facility] | 102 | mg/dL | (missing) | | (unavailable | 06:05 | [facility] | | | | + + + +-------+---------+ + + + | Result panel 111 | + + + + + +-----+---------+ + | | 2021-11-21 | [facility] | 6 | mg/dL | (missing) | | (unavailable | 06:05 | [facility] | | | | + + + +-----+---------+ + + + | Result panel 112 | + + + + + +--------+---------+ + | | 2021-11-21 | [facility] | 0.67 | mg/dL | (missing) | | (unavailable | 06:05 | [facility] | | | | + + + +--------+---------+ + + + | Result panel 113 | + + + + + +-------+ + + | | 2021-11-21 | [facility] | 130 | (missing) | (missing) | | (unavailable | 06:05 | [facility] | | | | + + + +-------+ + + + + | Result panel 114 | + + + + + +--------+ + + | | 2021-11-21 | [facility] | 8.95 | (missing) | (missing) | | (unavailable | 06:05 | [facility] | | | | + + + +--------+ + + + + | Result panel 115 | + + + + + +-------+ + + | | 2021-11-21 | [facility] | 143 | (missing) | (missing) | | (unavailable | 06:05 | [facility] | | | | + + + +-------+ + + + + | Result panel 116 | + + + + + +-------+ + + | | 2021-11-21 | [facility] | 4.3 | (missing) | (missing) | | (unavailable | 06:05 | [facility] | | | | + + + +-------+ + + + + | Result panel 117 | + + + + + +-------+ + + | | 2021-11-21 | [facility] | 110 | (missing) | (missing) | | (unavailable | 06:05 | [facility] | | | | + + + +-------+ + + + + | Result panel 118 | + + + + + +------+ + + | | 2021-11-21 | [facility] | 26 | (missing) | (missing) | | (unavailable | 06:05 | [facility] | | | | + + + +------+ + + + + | Result panel 119 | + + + + + +--------+ + + | | 2021-11-21 | [facility] | 11.3 | (missing) | (missing) | | (unavailable | 06:05 | [facility] | | | | + + + +--------+ + + + + | Result panel 120 | + + + + + +-------+---------+ + | | 2021-11-21 | [facility] | 9.2 | mg/dL | (missing) | | (unavailable | 06:05 | [facility] | | | | + + + +-------+---------+ + + + | Result panel 121 | + + + + + + + + + | | 2021-11-23 | [facility] | YELLOW | (missing) | (missing) | | (unavailable | 20:40 | [facility] | | | | + + + + + + + + + | Result panel 122 | + + + + + +---------+ + + | | 2021-11-23 | [facility] | CLEAR | (missing) | (missing) | | (unavailable | 20:40 | [facility] | | | | + + + +---------+ + + + + | Result panel 123 | + + + + + + + + + | | 2021-11-23 | [facility] | NEGATIVE | (missing) | (missing) | | (unavailable | 20:40 | [facility] | | | | + + + + + + + + + | Result panel 124 | + + + + + + + + + | | 2021-11-23 | [facility] | NEGATIVE | (missing) | (missing) | | (unavailable | 20:40 | [facility] | | | | + + + + + + + + + | Result panel 125 | + + + + + + + + + | | 2021-11-23 | [facility] | NEGATIVE | (missing) | (missing) | | (unavailable | 20:40 | [facility] | | | | + + + + + + + + + | Result panel 126 | + + + + + + + + + | | 2021-11-23 | [facility] | <=1.005 | (missing) | (missing) | | (unavailable | 20:40 | [facility] | | | | + + + + + + + + + | Result panel 127 | + + + + + +---------+ + + | | 2021-11-23 | [facility] | SMALL | (missing) | (missing) | | (unavailable | 20:40 | [facility] | | | | + + + +---------+ + + + + | Result panel 128 | + + + + + +-------+ + + | | 2021-11-23 | [facility] | 6.0 | (missing) | (missing) | | (unavailable | 20:40 | [facility] | | | | + + + +-------+ + + + + | Result panel 129 | + + + + + + + + + | | 2021-11-23 | [facility] | NEGATIVE | (missing) | (missing) | | (unavailable | 20:40 | [facility] | | | | + + + + + + + + + | Result panel 130 | + + + + + + + + + | | 2021-11-23 | [facility] | NORMAL | (missing) | (missing) | | (unavailable | 20:40 | [facility] | | | | + + + + + + + + + | Result panel 131 | + + + + + + + + + | | 2021-11-23 | [facility] | NEGATIVE | (missing) | (missing) | | (unavailable | 20:40 | [facility] | | | | + + + + + + + + + | Result panel 132 | + + + + + + + + + | | 2021-11-23 | [facility] | NEGATIVE | (missing) | (missing) | | (unavailable | 20:40 | [facility] | | | | + + + + + + + + + | Result panel 133 | + + + + + +-------+ + + | | 2021-11-23 | [facility] | 2-3 | (missing) | (missing) | | (unavailable | 20:40 | [facility] | | | | + + + +-------+ + + + + | Result panel 134 | + + + + + +-------+ + + | | 2021-11-23 | [facility] | 0-1 | (missing) | (missing) | | (unavailable | 20:40 | [facility] | | | | + + + +-------+ + + + + | Result panel 135 | + + + + + + + + + | | 2021-11-23 | [facility] | SQUAMOUS 1+ | (missing) | (missing) | | (unavailable | 20:40 | [facility] | | | | + + + + + + + + + | Result panel 136 | + + + + + + + + + | | 2021-11-23 | [facility] | NONE SEEN | (missing) | (missing) | | (unavailable | 20:40 | [facility] | | | | + + + + + + + + + | Result panel 137 | + + + + + +--------+ + + | | 2021-11-23 | [facility] | RARE | (missing) | (missing) | | (unavailable | 20:40 | [facility] | | | | + + + +--------+ + + + + | Result panel 138 | + + + + + + + + + | | 2021-11-23 | [facility] | NONE SEEN | (missing) | (missing) | | (unavailable | 20:40 | [facility] | | | | + + + + + + + + + | Result panel 139 | + + + + + + + + + | | 2021-11-23 | [facility] | CLEAN CATCH | (missing) | (missing) | | (unavailable | 20:40 | [facility] | | | | + + + + + + + + + | Result panel 140 | + + + + + + + + + | | 2021-11-23 | [facility] | NEGATIVE | (missing) | (missing) | | (unavailable | 20:40 | [facility] | | | | + + + + + + + + + | Result panel 141 | + + + + + + + + + | | 2021-11-23 | [facility] | NEGATIVE | (missing) | (missing) | | (unavailable | 20:40 | [facility] | | | | + + + + + + + + + | Result panel 142 | + + + + + + + + + | | 2021-11-23 | [facility] | NEGATIVE | (missing) | (missing) | | (unavailable | 20:40 | [facility] | | | | + + + + + + + + + | Result panel 143 | + + + + + + + + + | | 2021-11-23 | [facility] | NEGATIVE | (missing) | (missing) | | (unavailable | 20:40 | [facility] | | | | + + + + + + + + + | Result panel 144 | + + + + + + + + + | | 2021-11-23 | [facility] | NEGATIVE | (missing) | (missing) | | (unavailable | 20:40 | [facility] | | | | + + + + + + + + + | Result panel 145 | + + + + + + + + + | | 2021-11-23 | [facility] | NEGATIVE | (missing) | (missing) | | (unavailable | 20:40 | [facility] | | | | + + + + + + + + + | Result panel 146 | + + + + + + + + + | | 2021-11-23 | [facility] | NEGATIVE | (missing) | (missing) | | (unavailable | 20:40 | [facility] | | | | + + + + + + + + + | Result panel 147 | + + + + + + + + + | | 2021-11-23 | [facility] | NEGATIVE | (missing) | (missing) | | (unavailable | 20:40 | [facility] | | | | + + + + + + + + + | Result panel 148 | + + + + + + + + + | | 2021-11-23 | [facility] | NEGATIVE | (missing) | (missing) | | (unavailable | 20:40 | [facility] | | | | + + + + + + + + + | Result panel 149 | + + + + + + + + + | | 2021-11-23 | [facility] | NEGATIVE | (missing) | (missing) | | (unavailable | 20:40 | [facility] | | | | + + + + + + + + + | Result panel 150 | + + + + + + + + + | | 2021-11-23 | [facility] | NEGATIVE | (missing) | (missing) | | (unavailable | 20:40 | [facility] | | | | + + + + + + + + + | Result panel 151 | + + + + + + + + + | | 2021-11-23 | [facility] | NEGATIVE | (missing) | (missing) | | (unavailable | 20:40 | [facility] | | | | + + + + + + + + + | Result panel 152 | + + + + + + + + + | | 2021-11-23 | [facility] | NEGATIVE | (missing) | (missing) | | (unavailable | 20:40 | [facility] | | | | + + + + + + + + + | Result panel 153 | + + + + + +--------+ + + | | 2021-11-23 | [facility] | 10.0 | (missing) | (missing) | | (unavailable | 20:49 | [facility] | | | | + + + +--------+ + + + + | Result panel 154 | + + + + + +--------+ + + | | 2021-11-23 | [facility] | 4.48 | (missing) | (missing) | | (unavailable | 20:49 | [facility] | | | | + + + +--------+ + + + + | Result panel 155 | + + + + + +--------+ + + | | 2021-11-23 | [facility] | 11.7 | (missing) | (missing) | | (unavailable | 20:49 | [facility] | | | | + + + +--------+ + + + + | Result panel 156 | + + + + + +--------+ + + | | 2021-11-23 | [facility] | 36.5 | (missing) | (missing) | | (unavailable | 20:49 | [facility] | | | | + + + +--------+ + + + + | Result panel 157 | + + + + + +--------+ + + | | 2021-11-23 | [facility] | 81.4 | (missing) | (missing) | | (unavailable | 20:49 | [facility] | | | | + + + +--------+ + + + + | Result panel 158 | + + + + + +--------+ + + | | 2021-11-23 | [facility] | 26.2 | (missing) | (missing) | | (unavailable | 20:49 | [facility] | | | | + + + +--------+ + + + + | Result panel 159 | + + + + + +--------+ + + | | 2021-11-23 | [facility] | 32.2 | (missing) | (missing) | | (unavailable | 20:49 | [facility] | | | | + + + +--------+ + + + + | Result panel 160 | + + + + + +--------+ + + | | 2021-11-23 | [facility] | 13.6 | (missing) | (missing) | | (unavailable | 20:49 | [facility] | | | | + + + +--------+ + + + + | Result panel 161 | + + + + + +-------+ + + | | 2021-11-23 | [facility] | 460 | (missing) | (missing) | | (unavailable | 20:49 | [facility] | | | | + + + +-------+ + + + + | Result panel 162 | + + + + + +--------+ + + | | 2021-11-23 | [facility] | 76.1 | (missing) | (missing) | | (unavailable | 20:49 | [facility] | | | | + + + +--------+ + + + + | Result panel 163 | + + + + + +--------+ + + | | 2021-11-23 | [facility] | 16.9 | (missing) | (missing) | | (unavailable | 20:49 | [facility] | | | | + + + +--------+ + + + + | Result panel 164 | + + + + + +-------+ + + | | 2021-11-23 | [facility] | 6.9 | (missing) | (missing) | | (unavailable | 20:49 | [facility] | | | | + + + +-------+ + + + + | Result panel 165 | + + + + + +-------+ + + | | 2021-11-23 | [facility] | 0.0 | (missing) | (missing) | | (unavailable | 20:49 | [facility] | | | | + + + +-------+ + + + + | Result panel 166 | + + + + + +-------+ + + | | 2021-11-23 | [facility] | 0.1 | (missing) | (missing) | | (unavailable | 20:49 | [facility] | | | | + + + +-------+ + + + + | Result panel 167 | + + + + + +-------+ + + | | 2021-11-23 | [facility] | 8.8 | (missing) | (missing) | | (unavailable | 20:49 | [facility] | | | | + + + +-------+ + + + + | Result panel 168 | + + + + + +-------+ + + | | 2021-11-23 | [facility] | 4.4 | (missing) | (missing) | | (unavailable | 20:49 | [facility] | | | | + + + +-------+ + + + + | Result panel 169 | + + + + + +-------+ + + | | 2021-11-23 | [facility] | 4.4 | (missing) | (missing) | | (unavailable | 20:49 | [facility] | | | | + + + +-------+ + + + + | Result panel 170 | + + + + + +--------+ + + | | 2021-11-23 | [facility] | 1.00 | (missing) | (missing) | | (unavailable | 20:49 | [facility] | | | | + + + +--------+ + + + + | Result panel 171 | + + + + + +-------+ + + | | 2021-11-23 | [facility] | 0.3 | (missing) | (missing) | | (unavailable | 20:49 | [facility] | | | | + + + +-------+ + + + + | Result panel 172 | + + + + + +------+ + + | | 2021-11-23 | [facility] | 29 | (missing) | (missing) | | (unavailable | 20:49 | [facility] | | | | + + + +------+ + + + + | Result panel 173 | + + + + + +------+ + + | | 2021-11-23 | [facility] | 14 | (missing) | (missing) | | (unavailable | 20:49 | [facility] | | | | + + + +------+ + + + + | Result panel 174 | + + + + + +------+ + + | | 2021-11-23 | [facility] | 93 | (missing) | (missing) | | (unavailable | 20:49 | [facility] | | | | + + + +------+ + + + + | Result panel 175 | + + + + + +---------+ + + | | 2021-11-23 | [facility] | 5.969 | (missing) | (missing) | | (unavailable | 20:49 | [facility] | | | | + + + +---------+ + + + + | Result panel 176 | + + + + + + + + + | | 2021-11-23 | [facility] | NEGATIVE | (missing) | (missing) | | (unavailable | 20:49 | [facility] | | | | + + + + + + + + + | Result panel 177 | + + + + + +-----+ + + | | 2021-11-23 | [facility] | 0 | (missing) | (missing) | | (unavailable | 20:49 | [facility] | | | | + + + +-----+ + + + + | Result panel 178 | + + + + + +------+ + + | | 2021-11-23 | [facility] | // | (missing) | (missing) | | (unavailable | 20:49 | [facility] | | | | + + + +------+ + + + + | Result panel 179 | + + + + + +-------+ + + | | 2021-11-23 | [facility] | 1.0 | (missing) | (missing) | | (unavailable | 20:49 | [facility] | | | | + + + +-------+ + + + + | Result panel 180 | + + + + + +------+ + + | | 2021-11-23 | [facility] | // | (missing) | (missing) | | (unavailable | 20:49 | [facility] | | | | + + + +------+ + + + + | Result panel 181 | + + + + + +------+ + + | | 2021-11-23 | [facility] | <3 | (missing) | (missing) | | (unavailable | 20:49 | [facility] | | | | + + + +------+ + + + + | Result panel 182 | + + + + + + + + + | | 2021-11-23 | [facility] | SEE SCANNED | (missing) | (missing) | | (unavailable | 20:49 | [facility] REPORT [facility] | | [facility] | | | | + + + + + + + + + | Result panel 183 | + + + + + +-------+---------+ + | | 2021-11-24 | [facility] | 1.0 | mg/dL | (missing) | | (unavailable | 02:47 | [facility] | | | | + + + +-------+---------+ + + + | Result panel 184 | + + + + + +------+ + + | | 2021-11-24 | [facility] | // | (missing) | (missing) | | (unavailable | 02:47 | [facility] | | | | + + + +------+ + + + + | Result panel 185 | + + + + + +-------+---------+ + | | 2021-11-24 | [facility] | 100 | mg/dL | (missing) | | (unavailable | 08:47 | [facility] | | | | + + + +-------+---------+ + + + | Result panel 186 | + + + + + +------+---------+ + | | 2021-11-24 | [facility] | 18 | mg/dL | (missing) | | (unavailable | 08:47 | [facility] | | | | + + + +------+---------+ + + + | Result panel 187 | + + + + + +--------+---------+ + | | 2021-11-24 | [facility] | 0.85 | mg/dL | (missing) | | (unavailable | 08:47 | [facility] | | | | + + + +--------+---------+ + + + | Result panel 188 | + + + + + +-------+ + + | | 2021-11-24 | [facility] | 102 | (missing) | (missing) | | (unavailable | 08:47 | [facility] | | | | + + + +-------+ + + + + | Result panel 189 | + + + + + +---------+ + + | | 2021-11-24 | [facility] | 21.17 | (missing) | (missing) | | (unavailable | 08:47 | [facility] | | | | + + + +---------+ + + + + | Result panel 190 | + + + + + +-------+ + + | | 2021-11-24 | [facility] | 140 | (missing) | (missing) | | (unavailable | 08:47 | [facility] | | | | + + + +-------+ + + + + | Result panel 191 | + + + + + +-------+ + + | | 2021-11-24 | [facility] | 3.7 | (missing) | (missing) | | (unavailable | 08:47 | [facility] | | | | + + + +-------+ + + + + | Result panel 192 | + + + + + +-------+ + + | | 2021-11-24 | [facility] | 105 | (missing) | (missing) | | (unavailable | 08:47 | [facility] | | | | + + + +-------+ + + + + | Result panel 193 | + + + + + +------+ + + | | 2021-11-24 | [facility] | 21 | (missing) | (missing) | | (unavailable | 08:47 | [facility] | | | | + + + +------+ + + + + | Result panel 194 | + + + + + +--------+ + + | | 2021-11-24 | [facility] | 17.7 | (missing) | (missing) | | (unavailable | 08:47 | [facility] | | | | + + + +--------+ + + + + | Result panel 195 | + + + + + +-------+---------+ + | | 2021-11-24 | [facility] | 8.8 | mg/dL | (missing) | | (unavailable | 08:47 | [facility] | | | | + + + +-------+---------+ + + + | Result panel 196 | + + + + + + + + + | | 2021-11-30 | [facility] | POSITIVE | (missing) | (missing) | | (unavailable | 07:29 | [facility] | | | | + + + + + + + + + | Result panel 197 | + + + + + + + + + | | 2021-11-30 | [facility] | NEGATIVE | (missing) | (missing) | | (unavailable | 07:29 | [facility] | | | | + + + + + + + + + | Result panel 198 | + + + + + + + + + | | 2021-11-30 | [facility] | NEGATIVE | (missing) | (missing) | | (unavailable | 07:29 | [facility] | | | | + + + + + + + + + | Result panel 199 | + + + + + + + + + | | 2021-11-30 | [facility] | NEGATIVE | (missing) | (missing) | | (unavailable | 07:29 | [facility] | | | | + + + + + + + + + | Result panel 200 | + + + + + + + + + | | 2022-04-26 | [facility] | NEGATIVE | (missing) | (missing) | | (unavailable | 23:30:08 | [facility] | | | | + + + + + + + + + | Result panel 201 | + + + + + + + + + | | 2022-04-26 | [facility] | NEGATIVE | (missing) | (missing) | | (unavailable | 23:30:08 | [facility] | | | | + + + + + + + + + | Result panel 202 | + + + + + + + + + | | 2022-04-26 | [facility] | NEGATIVE | (missing) | (missing) | | (unavailable | 23:30:08 | [facility] | | | | + + + + + + + + + | Result panel 203 | + + + + + + + + + | | 2022-04-26 | [facility] | NEGATIVE | (missing) | (missing) | | (unavailable | 23:30:08 | [facility] | | | | + + + + + + + + + | Result panel 204 | + + + + + +-------+ + + | | 2022-10-26 | [facility] | 7.7 | (missing) | (missing) | | (unavailable | 19:05:07 | [facility] | | | | + + + +-------+ + + + + | Result panel 205 | + + + + + +--------+ + + | | 2022-10-26 | [facility] | 4.68 | (missing) | (missing) | | (unavailable | 19:05:07 | [facility] | | | | + + + +--------+ + + + + | Result panel 206 | + + + + + +--------+ + + | | 2022-10-26 | [facility] | 11.5 | (missing) | (missing) | | (unavailable | 19:05:07 | [facility] | | | | + + + +--------+ + + + + | Result panel 207 | + + + + + +--------+ + + | | 2022-10-26 | [facility] | 36.5 | (missing) | (missing) | | (unavailable | 19:05:07 | [facility] | | | | + + + +--------+ + + + + | Result panel 208 | + + + + + +--------+ + + | | 2022-10-26 | [facility] | 78.1 | (missing) | (missing) | | (unavailable | 19:05:07 | [facility] | | | | + + + +--------+ + + + + | Result panel 209 | + + + + + +--------+ + + | | 2022-10-26 | [facility] | 24.7 | (missing) | (missing) | | (unavailable | 19:05:07 | [facility] | | | | + + + +--------+ + + + + | Result panel 210 | + + + + + +--------+ + + | | 2022-10-26 | [facility] | 31.6 | (missing) | (missing) | | (unavailable | 19:05:07 | [facility] | | | | + + + +--------+ + + + + | Result panel 211 | + + + + + +--------+ + + | | 2022-10-26 | [facility] | 15.2 | (missing) | (missing) | | (unavailable | 19:05:07 | [facility] | | | | + + + +--------+ + + + + | Result panel 212 | + + + + + +-------+ + + | | 2022-10-26 | [facility] | 380 | (missing) | (missing) | | (unavailable | 19:05:07 | [facility] | | | | + + + +-------+ + + + + | Result panel 213 | + + + + + +--------+ + + | | 2022-10-26 | [facility] | 73.5 | (missing) | (missing) | | (unavailable | 19:05:07 | [facility] | | | | + + + +--------+ + + + + | Result panel 214 | + + + + + +--------+ + + | | 2022-10-26 | [facility] | 19.8 | (missing) | (missing) | | (unavailable | 19:05:07 | [facility] | | | | + + + +--------+ + + + + | Result panel 215 | + + + + + +-------+ + + | | 2022-10-26 | [facility] | 6.6 | (missing) | (missing) | | (unavailable | 19:05:07 | [facility] | | | | + + + +-------+ + + + + | Result panel 216 | + + + + + +-------+ + + | | 2022-10-26 | [facility] | 0.0 | (missing) | (missing) | | (unavailable | ::07 | [facility] | | | | + + + +-------+ + + + + | Result panel 217 | + + + + + +-------+ + + | | 2022-10-26 | [facility] | 0.1 | (missing) | (missing) | | (unavailable | 19:05:07 | [facility] | | | | + + + +-------+ + + + + | Result panel 218 | + + + + + +------+---------+ + | | 2022-10-26 | [facility] | 93 | mg/dL | (missing) | | (unavailable | 19:05:07 | [facility] | | | | + + + +------+---------+ + + + | Result panel 219 | + + + + + +-----+---------+ + | | 2022-10-26 | [facility] | 9 | mg/dL | (missing) | | (unavailable | 19:05:07 | [facility] | | | | + + + +-----+---------+ + + + | Result panel 220 | + + + + + +--------+---------+ + | | 2022-10-26 | [facility] | 0.80 | mg/dL | (missing) | | (unavailable | ::07 | [facility] | | | | + + + +--------+---------+ + + + | Result panel 221 | + + + + + +-------+ + + | | 2022-10-26 | [facility] | 109 | (missing) | (missing) | | (unavailable | :05:07 | [facility] | | | | + + + +-------+ + + + + | Result panel 222 | + + + + + +---------+ + + | | 2022-10-26 | [facility] | 11.25 | (missing) | (missing) | | (unavailable | 19:05:07 | [facility] | | | | + + + +---------+ + + + + | Result panel 223 | + + + + + +-------+ + + | | 2022-10-26 | [facility] | 133 | (missing) | (missing) | | (unavailable | 19:05:07 | [facility] | | | | + + + +-------+ + + + + | Result panel 224 | + + + + + +-------+ + + | | 2022-10-26 | [facility] | 3.5 | (missing) | (missing) | | (unavailable | 19:05:07 | [facility] | | | | + + + +-------+ + + + + | Result panel 225 | + + + + + +------+ + + | | 2022-10-26 | [facility] | 98 | (missing) | (missing) | | (unavailable | 19:05:07 | [facility] | | | | + + + +------+ + + + + | Result panel 226 | + + + + + +------+ + + | | 2022-10-26 | [facility] | 24 | (missing) | (missing) | | (unavailable | 19:05:07 | [facility] | | | | + + + +------+ + + + + | Result panel 227 | + + + + + +--------+ + + | | 2022-10-26 | [facility] | 14.5 | (missing) | (missing) | | (unavailable | 19:05:07 | [facility] | | | | + + + +--------+ + + + + | Result panel 228 | + + + + + +-------+---------+ + | | 2022-10-26 | [facility] | 9.4 | mg/dL | (missing) | | (unavailable | 19:05:07 | [facility] | | | | + + + +-------+---------+ + + + | Result panel 229 | + + + + + +-------+ + + | | 2022-10-26 | [facility] | 8.6 | (missing) | (missing) | | (unavailable | 19:05:07 | [facility] | | | | + + + +-------+ + + + + | Result panel 230 | + + + + + +-------+ + + | | 2022-10-26 | [facility] | 4.2 | (missing) | (missing) | | (unavailable | 19:05:07 | [facility] | | | | + + + +-------+ + + + + | Result panel 231 | + + + + + +-------+ + + | | 2022-10-26 | [facility] | 4.4 | (missing) | (missing) | | (unavailable | 19:05:07 | [facility] | | | | + + + +-------+ + + + + | Result panel 232 | + + + + + +--------+ + + | | 2022-10-26 | [facility] | 0.95 | (missing) | (missing) | | (unavailable | 19:05:07 | [facility] | | | | + + + +--------+ + + + + | Result panel 233 | + + + + + +-------+ + + | | 2022-10-26 | [facility] | 0.6 | (missing) | (missing) | | (unavailable | 19:05:07 | [facility] | | | | + + + +-------+ + + + + | Result panel 234 | + + + + + +------+ + + | | 2022-10-26 | [facility] | 26 | (missing) | (missing) | | (unavailable | 19:05:07 | [facility] | | | | + + + +------+ + + + + | Result panel 235 | + + + + + +------+ + + | | 2022-10-26 | [facility] | 20 | (missing) | (missing) | | (unavailable | 19:05:07 | [facility] | | | | + + + +------+ + + + + | Result panel 236 | + + + + + +------+ + + | | 2022-10-26 | [facility] | 93 | (missing) | (missing) | | (unavailable | 19:05:07 | [facility] | | | | + + + +------+ + + + + | Result panel 237 | + + + + + +---------+ + + | | 2022-10-26 | [facility] | 1.664 | (missing) | (missing) | | (unavailable | 19:05:07 | [facility] | | | | + + + +---------+ + + + + | Result panel 238 | + + + + + + + + + | | 2022-10-26 | [facility] | NEGATIVE | (missing) | (missing) | | (unavailable | 19:05:07 | [facility] | | | | + + + + + + + + + | Result panel 239 | + + + + + +-----+ + + | | 2022-10-26 | [facility] | 0 | (missing) | (missing) | | (unavailable | 19::07 | [facility] | | | | + + + +-----+ + + + + | Result panel 240 | + + + + + +------+ + + | | 2022-10-26 | [facility] | // | (missing) | (missing) | | (unavailable | ::07 | [facility] | | | | + + + +------+ + + + + | Result panel 241 | + + + + + +-------+---------+ + | | 2022-10-26 | [facility] | 0.7 | mg/dL | (missing) | | (unavailable | ::07 | [facility] | | | | + + + +-------+---------+ + + + | Result panel 242 | + + + + + +------+ + + | | 2022-10-26 | [facility] | // | (missing) | (missing) | | (unavailable | :07 | [facility] | | | | + + + +------+ + + + + | Result panel 243 | + + + + + +-------+ + + | | 2022-10-26 | [facility] | 0.8 | (missing) | (missing) | | (unavailable | ::07 | [facility] | | | | + + + +-------+ + + + + | Result panel 244 | + + + + + +------+ + + | | 2022-10-26 | [facility] | // | (missing) | (missing) | | (unavailable | ::07 | [facility] | | | | + + + +------+ + + + + | Result panel 245 | + + + + + +------+ + + | | 2022-10-26 | [facility] | <3 | (missing) | (missing) | | (unavailable | 19:05:07 | [facility] | | | | + + + +------+ + + + + | Result panel 246 | + + + + + + + + + | | 2022-10-26 | [facility] | YELLOW | (missing) | (missing) | | (unavailable | 19:28:07 | [facility] | | | | + + + + + + + + + | Result panel 247 | + + + + + +---------+ + + | | 2022-10-26 | [facility] | CLEAR | (missing) | (missing) | | (unavailable | 19:28:07 | [facility] | | | | + + + +---------+ + + + + | Result panel 248 | + + + + + + + + + | | 2022-10-26 | [facility] | NEGATIVE | (missing) | (missing) | | (unavailable | 19:28:07 | [facility] | | | | + + + + + + + + + | Result panel 249 | + + + + + + + + + | | 2022-10-26 | [facility] | NEGATIVE | (missing) | (missing) | | (unavailable | 19:28:07 | [facility] | | | | + + + + + + + + + | Result panel 250 | + + + + + +---------+ + + | | 2022-10-26 | [facility] | SMALL | (missing) | (missing) | | (unavailable | 19:28:07 | [facility] | | | | + + + +---------+ + + + + | Result panel 251 | + + + + + + + + + | | 2022-10-26 | [facility] | <=1.005 | (missing) | (missing) | | (unavailable | 19:28:07 | [facility] | | | | + + + + + + + + + | Result panel 252 | + + + + + + + + + | | 2022-10-26 | [facility] | TRACE-I | (missing) | (missing) | | (unavailable | 19:28:07 | [facility] | | | | + + + + + + + + + | Result panel 253 | + + + + + +-------+ + + | | 2022-10-26 | [facility] | 6.0 | (missing) | (missing) | | (unavailable | 19:28:07 | [facility] | | | | + + + +-------+ + + + + | Result panel 254 | + + + + + + + + + | | 2022-10-26 | [facility] | NEGATIVE | (missing) | (missing) | | (unavailable | 19:28:07 | [facility] | | | | + + + + + + + + + | Result panel 255 | + + + + + + + + + | | 2022-10-26 | [facility] | NORMAL | (missing) | (missing) | | (unavailable | 19:28:07 | [facility] | | | | + + + + + + + + + | Result panel 256 | + + + + + + + + + | | 2022-10-26 | [facility] | NEGATIVE | (missing) | (missing) | | (unavailable | 19:28:07 | [facility] | | | | + + + + + + + + + | Result panel 257 | + + + + + +---------+ + + | | 2022-10-26 | [facility] | TRACE | (missing) | (missing) | | (unavailable | 19:28:07 | [facility] | | | | + + + +---------+ + + + + | Result panel 258 | + + + + + +-------+ + + | | 2022-10-26 | [facility] | 0-1 | (missing) | (missing) | | (unavailable | 19:28:07 | [facility] | | | | + + + +-------+ + + + + | Result panel 259 | + + + + + +-------+ + + | | 2022-10-26 | [facility] | 4-6 | (missing) | (missing) | | (unavailable | 19:28:07 | [facility] | | | | + + + +-------+ + + + + | Result panel 260 | + + + + + + + + + | | 2022-10-26 | [facility] | SQUAMOUS 2+ | (missing) | (missing) | | (unavailable | 19:28:07 | [facility] | | | | + + + + + + + + + | Result panel 261 | + + + + + +------+ + + | | 2022-10-26 | [facility] | 1+ | (missing) | (missing) | | (unavailable | 19:28:07 | [facility] | | | | + + + +------+ + + + + | Result panel 262 | + + + + + +------+ + + | | 2022-10-26 | [facility] | No | (missing) | (missing) | | (unavailable | 19:28:07 | [facility] | | | | + + + +------+ + + + + | Result panel 263 | + + + + + + + + + | | 2022-10-26 | [facility] | NEGATIVE | (missing) | (missing) | | (unavailable | 19:28:07 | [facility] | | | | + + + + + + + + + | Result panel 264 | + + + + + + + + + | | 2022-10-26 | [facility] | NEGATIVE | (missing) | (missing) | | (unavailable | 19:28:07 | [facility] | | | | + + + + + + + + + | Result panel 265 | + + + + + + + + + | | 2022-10-26 | [facility] | NEGATIVE | (missing) | (missing) | | (unavailable | 19:28:07 | [facility] | | | | + + + + + + + + + | Result panel 266 | + + + + + + + + + | | 2022-10-26 | [facility] | NEGATIVE | (missing) | (missing) | | (unavailable | 19:28:07 | [facility] | | | | + + + + + + + + + | Result panel 267 | + + + + + + + + + | | 2022-10-26 | [facility] | NEGATIVE | (missing) | (missing) | | (unavailable | 19:28:07 | [facility] | | | | + + + + + + + + + | Result panel 268 | + + + + + + + + + | | 2022-10-26 | [facility] | NEGATIVE | (missing) | (missing) | | (unavailable | 19:28:07 | [facility] | | | | + + + + + + + + + | Result panel 269 | + + + + + + + + + | | 2022-10-26 | [facility] | NEGATIVE | (missing) | (missing) | | (unavailable | 19:28:07 | [facility] | | | | + + + + + + + + + | Result panel 270 | + + + + + + + + + | | 2022-10-26 | [facility] | NEGATIVE | (missing) | (missing) | | (unavailable | 19:28:07 | [facility] | | | | + + + + + + + + + | Result panel 271 | + + + + + + + + + | | 2022-10-26 | [facility] | NEGATIVE | (missing) | (missing) | | (unavailable | 19:28:07 | [facility] | | | | + + + + + + + + + | Result panel 272 | + + + + + + + + + | | 2022-10-26 | [facility] | NEGATIVE | (missing) | (missing) | | (unavailable | 19:28:07 | [facility] | | | | + + + + + + + + + | Result panel 273 | + + + + + + + + + | | 2022-10-26 | [facility] | NEGATIVE | (missing) | (missing) | | (unavailable | 19:28:07 | [facility] | | | | + + + + + + + + + | Result panel 274 | + + + + + + + + + | | 2022-10-26 | [facility] | NEGATIVE | (missing) | (missing) | | (unavailable | 19:28:07 | [facility] | | | | + + + + + + + + + | Result panel 275 | + + + + + + + + + | | 2022-10-26 | [facility] | NEGATIVE | (missing) | (missing) | | (unavailable | 19:28:07 | [facility] | | | | + + + + + + + + + | Result panel 276 | + + + + + + + + + | | 2022-10-27 | [facility] | NEGATIVE | (missing) | (missing) | | (unavailable | 13:25:07 | [facility] | | | | + + + + + + + + + | Result panel 277 | + + + + + +------+ + + | | 2022-12-05 | [facility] | 82 | (missing) | (missing) | | (unavailable | 23:00:07 | [facility] | | | | + + + +------+ + + + + | Result panel 278 | + + + + + +---------+ + + | | 2022-12-05 | [facility] | 2.406 | (missing) | (missing) | | (unavailable | 23:00:07 | [facility] | | | | + + + +---------+ + + + + | Result panel 279 | + + + + + + + + + | | 2022-12-05 | [facility] | NEGATIVE | (missing) | (missing) | | (unavailable | 23:00:07 | [facility] | | | | + + + + + + + + + | Result panel 280 | + + + + + +-----+ + + | | 2022-12-05 | [facility] | 0 | (missing) | (missing) | | (unavailable | 23:00:07 | [facility] | | | | + + + +-----+ + + + + | Result panel 281 | + + + + + +------+ + + | | 2022-12-05 | [facility] | // | (missing) | (missing) | | (unavailable | 23:00:07 | [facility] | | | | + + + +------+ + + + + | Result panel 282 | + + + + + +-------+---------+ + | | 2022-12-05 | [facility] | 1.3 | mg/dL | (missing) | | (unavailable | 23:00:07 | [facility] | | | | + + + +-------+---------+ + + + | Result panel 283 | + + + + + +------+ + + | | 2022-12-05 | [facility] | // | (missing) | (missing) | | (unavailable | 23:00:07 | [facility] | | | | + + + +------+ + + + + | Result panel 284 | + + + + + +-------+ + + | | 2022-12-05 | [facility] | 0.9 | (missing) | (missing) | | (unavailable | 23:00:07 | [facility] | | | | + + + +-------+ + + + + | Result panel 285 | + + + + + +------+ + + | | 2022-12-05 | [facility] | // | (missing) | (missing) | | (unavailable | 23:00:07 | [facility] | | | | + + + +------+ + + + + | Result panel 286 | + + + + + +------+ + + | | 2022-12-05 | [facility] | <3 | (missing) | (missing) | | (unavailable | 23:00:07 | [facility] | | | | + + + +------+ + + + + | Result panel 287 | + + + + + +-------+ + + | | 2022-12-05 | [facility] | 8.5 | (missing) | (missing) | | (unavailable | 23:00:07 | [facility] | | | | + + + +-------+ + + + + | Result panel 288 | + + + + + +--------+ + + | | 2022-12-05 | [facility] | 4.10 | (missing) | (missing) | | (unavailable | 23:00:07 | [facility] | | | | + + + +--------+ + + + + | Result panel 289 | + + + + + +--------+ + + | | 2022-12-05 | [facility] | 10.6 | (missing) | (missing) | | (unavailable | :: | [facility] | | | | + + + +--------+ + + + + | Result panel 290 | + + + + + +--------+ + + | | 2022-12-05 | [facility] | 32.9 | (missing) | (missing) | | (unavailable | ::07 | [facility] | | | | + + + +--------+ + + + + | Result panel 291 | + + + + + +--------+ + + | | 2022-12-05 | [facility] | 80.2 | (missing) | (missing) | | (unavailable | : | [facility] | | | | + + + +--------+ + + + + | Result panel 292 | + + + + + +--------+ + + | | 2022-12-05 | [facility] | 25.8 | (missing) | (missing) | | (unavailable | ::07 | [facility] | | | | + + + +--------+ + + + + | Result panel 293 | + + + + + +--------+ + + | | 2022-12-05 | [facility] | 32.2 | (missing) | (missing) | | (unavailable | 23::07 | [facility] | | | | + + + +--------+ + + + + | Result panel 294 | + + + + + +--------+ + + | | 2022-12-05 | [facility] | 16.1 | (missing) | (missing) | | (unavailable | 23:00:07 | [facility] | | | | + + + +--------+ + + + + | Result panel 295 | + + + + + +-------+ + + | | 2022-12-05 | [facility] | 424 | (missing) | (missing) | | (unavailable | 23::07 | [facility] | | | | + + + +-------+ + + + + | Result panel 296 | + + + + + +--------+ + + | | 2022-12-05 | [facility] | 65.5 | (missing) | (missing) | | (unavailable | ::07 | [facility] | | | | + + + +--------+ + + + + | Result panel 297 | + + + + + +--------+ + + | | 2022-12-05 | [facility] | 26.6 | (missing) | (missing) | | (unavailable | 23::07 | [facility] | | | | + + + +--------+ + + + + | Result panel 298 | + + + + + +-------+ + + | | 2022-12-05 | [facility] | 7.7 | (missing) | (missing) | | (unavailable | ::07 | [facility] | | | | + + + +-------+ + + + + | Result panel 299 | + + + + + +-------+ + + | | 2022-12-05 | [facility] | 0.0 | (missing) | (missing) | | (unavailable | 23::07 | [facility] | | | | + + + +-------+ + + + + | Result panel 300 | + + + + + +-------+ + + | | 2022-12-05 | [facility] | 0.2 | (missing) | (missing) | | (unavailable | 23:00:07 | [facility] | | | | + + + +-------+ + + + + | Result panel 301 | + + + + + +-------+---------+ + | | 2022-12-05 | [facility] | 101 | mg/dL | (missing) | | (unavailable | 23:00:07 | [facility] | | | | + + + +-------+---------+ + + + | Result panel 302 | + + + + + +------+---------+ + | | 2022-12-05 | [facility] | 12 | mg/dL | (missing) | | (unavailable | 23:00:07 | [facility] | | | | + + + +------+---------+ + + + | Result panel 303 | + + + + + +--------+---------+ + | | 2022-12-05 | [facility] | 0.94 | mg/dL | (missing) | | (unavailable | 23:00:07 | [facility] | | | | + + + +--------+---------+ + + + | Result panel 304 | + + + + + +------+ + + | | 2022-12-05 | [facility] | 90 | (missing) | (missing) | | (unavailable | 23:00:07 | [facility] | | | | + + + +------+ + + + + | Result panel 305 | + + + + + +---------+ + + | | 2022-12-05 | [facility] | 12.76 | (missing) | (missing) | | (unavailable | 23:00:07 | [facility] | | | | + + + +---------+ + + + + | Result panel 306 | + + + + + +-------+ + + | | 2022-12-05 | [facility] | 131 | (missing) | (missing) | | (unavailable | 23:00:07 | [facility] | | | | + + + +-------+ + + + + | Result panel 307 | + + + + + +-------+ + + | | 2022-12-05 | [facility] | 3.6 | (missing) | (missing) | | (unavailable | 23:00:07 | [facility] | | | | + + + +-------+ + + + + | Result panel 308 | + + + + + +------+ + + | | 2022-12-05 | [facility] | 98 | (missing) | (missing) | | (unavailable | 23:00:07 | [facility] | | | | + + + +------+ + + + + | Result panel 309 | + + + + + +------+ + + | | 2022-12-05 | [facility] | 22 | (missing) | (missing) | | (unavailable | 23::07 | [facility] | | | | + + + +------+ + + + + | Result panel 310 | + + + + + +--------+ + + | | 2022-12-05 | [facility] | 14.6 | (missing) | (missing) | | (unavailable | 23:00:07 | [facility] | | | | + + + +--------+ + + + + | Result panel 311 | + + + + + +-------+---------+ + | | 2022-12-05 | [facility] | 9.5 | mg/dL | (missing) | | (unavailable | 23::07 | [facility] | | | | + + + +-------+---------+ + + + | Result panel 312 | + + + + + +-------+ + + | | 2022-12-05 | [facility] | 8.2 | (missing) | (missing) | | (unavailable | 23:00:07 | [facility] | | | | + + + +-------+ + + + + | Result panel 313 | + + + + + +-------+ + + | | 2022-12-05 | [facility] | 3.8 | (missing) | (missing) | | (unavailable | ::07 | [facility] | | | | + + + +-------+ + + + + | Result panel 314 | + + + + + +-------+ + + | | 2022-12-05 | [facility] | 4.4 | (missing) | (missing) | | (unavailable | ::07 | [facility] | | | | + + + +-------+ + + + + | Result panel 315 | + + + + + +--------+ + + | | 2022-12-05 | [facility] | 0.86 | (missing) | (missing) | | (unavailable | 23:00:07 | [facility] | | | | + + + +--------+ + + + + | Result panel 316 | + + + + + +-------+ + + | | 2022-12-05 | [facility] | 0.3 | (missing) | (missing) | | (unavailable | 23:00:07 | [facility] | | | | + + + +-------+ + + + + | Result panel 317 | + + + + + +------+ + + | | 2022-12-05 | [facility] | 17 | (missing) | (missing) | | (unavailable | 23:00:07 | [facility] | | | | + + + +------+ + + + + | Result panel 318 | + + + + + +------+ + + | | 2022-12-05 | [facility] | 30 | (missing) | (missing) | | (unavailable | 23:00:07 | [facility] | | | | + + + +------+ + + + + | Result panel 319 | + + + + + +------+ + + | | 2022-12-05 | [facility] | 82 | (missing) | (missing) | | (unavailable | 23:00:07 | [facility] | | | | + + + +------+ + + + + | Result panel 320 | + + + + + +---------+ + + | | 2022-12-05 | [facility] | 2.406 | (missing) | (missing) | | (unavailable | 23:00:07 | [facility] | | | | + + + +---------+ + + + + | Result panel 321 | + + + + + + + + + | | 2022-12-05 | [facility] | NEGATIVE | (missing) | (missing) | | (unavailable | 23:00:07 | [facility] | | | | + + + + + + + + + | Result panel 322 | + + + + + +-----+ + + | | 2022-12-05 | [facility] | 0 | (missing) | (missing) | | (unavailable | 23:00:07 | [facility] | | | | + + + +-----+ + + + + | Result panel 323 | + + + + + +------+ + + | | 2022-12-05 | [facility] | // | (missing) | (missing) | | (unavailable | 23::07 | [facility] | | | | + + + +------+ + + + + | Result panel 324 | + + + + + +-------+---------+ + | | 2022-12-05 | [facility] | 1.3 | mg/dL | (missing) | | (unavailable | 23:00:07 | [facility] | | | | + + + +-------+---------+ + + + | Result panel 325 | + + + + + +------+ + + | | 2022-12-05 | [facility] | // | (missing) | (missing) | | (unavailable | 23::07 | [facility] | | | | + + + +------+ + + + + | Result panel 326 | + + + + + +-------+ + + | | 2022-12-05 | [facility] | 0.9 | (missing) | (missing) | | (unavailable | 23:00:07 | [facility] | | | | + + + +-------+ + + + + | Result panel 327 | + + + + + +------+ + + | | 2022-12-05 | [facility] | // | (missing) | (missing) | | (unavailable | 23:00:07 | [facility] | | | | + + + +------+ + + + + | Result panel 328 | + + + + + +------+ + + | | 2022-12-05 | [facility] | <3 | (missing) | (missing) | | (unavailable | 23:00:07 | [facility] | | | | + + + +------+ + + + + | Result panel 329 | + + + + + +-------+ + + | | 2022-12-05 | [facility] | 8.5 | (missing) | (missing) | | (unavailable | 23:00:07 | [facility] | | | | + + + +-------+ + + + + | Result panel 330 | + + + + + +--------+ + + | | 2022-12-05 | [facility] | 4.10 | (missing) | (missing) | | (unavailable | 23::07 | [facility] | | | | + + + +--------+ + + + + | Result panel 331 | + + + + + +--------+ + + | | 2022-12-05 | [facility] | 10.6 | (missing) | (missing) | | (unavailable | 23:00:07 | [facility] | | | | + + + +--------+ + + + + | Result panel 332 | + + + + + +--------+ + + | | 2022-12-05 | [facility] | 32.9 | (missing) | (missing) | | (unavailable | :: | [facility] | | | | + + + +--------+ + + + + | Result panel 333 | + + + + + +--------+ + + | | 2022-12-05 | [facility] | 80.2 | (missing) | (missing) | | (unavailable | ::07 | [facility] | | | | + + + +--------+ + + + + | Result panel 334 | + + + + + +--------+ + + | | 2022-12-05 | [facility] | 25.8 | (missing) | (missing) | | (unavailable | :: | [facility] | | | | + + + +--------+ + + + + | Result panel 335 | + + + + + +--------+ + + | | 2022-12-05 | [facility] | 32.2 | (missing) | (missing) | | (unavailable | ::07 | [facility] | | | | + + + +--------+ + + + + | Result panel 336 | + + + + + +--------+ + + | | 2022-12-05 | [facility] | 16.1 | (missing) | (missing) | | (unavailable | 23:00:07 | [facility] | | | | + + + +--------+ + + + + | Result panel 337 | + + + + + +-------+ + + | | 2022-12-05 | [facility] | 424 | (missing) | (missing) | | (unavailable | 23:00:07 | [facility] | | | | + + + +-------+ + + + + | Result panel 338 | + + + + + +--------+ + + | | 2022-12-05 | [facility] | 65.5 | (missing) | (missing) | | (unavailable | ::07 | [facility] | | | | + + + +--------+ + + + + | Result panel 339 | + + + + + +--------+ + + | | 2022-12-05 | [facility] | 26.6 | (missing) | (missing) | | (unavailable | 23:00:07 | [facility] | | | | + + + +--------+ + + + + | Result panel 340 | + + + + + +-------+ + + | | 2022-12-05 | [facility] | 7.7 | (missing) | (missing) | | (unavailable | 23::07 | [facility] | | | | + + + +-------+ + + + + | Result panel 341 | + + + + + +-------+ + + | | 2022-12-05 | [facility] | 0.0 | (missing) | (missing) | | (unavailable | ::07 | [facility] | | | | + + + +-------+ + + + + | Result panel 342 | + + + + + +-------+ + + | | 2022-12-05 | [facility] | 0.2 | (missing) | (missing) | | (unavailable | ::07 | [facility] | | | | + + + +-------+ + + + + | Result panel 343 | + + + + + +-------+---------+ + | | 2022-12-05 | [facility] | 101 | mg/dL | (missing) | | (unavailable | 23::07 | [facility] | | | | + + + +-------+---------+ + + + | Result panel 344 | + + + + + +------+---------+ + | | 2022-12-05 | [facility] | 12 | mg/dL | (missing) | | (unavailable | : | [facility] | | | | + + + +------+---------+ + + + | Result panel 345 | + + + + + +--------+---------+ + | | 2022-12-05 | [facility] | 0.94 | mg/dL | (missing) | | (unavailable | ::07 | [facility] | | | | + + + +--------+---------+ + + + | Result panel 346 | + + + + + +------+ + + | | 2022-12-05 | [facility] | 90 | (missing) | (missing) | | (unavailable | 23::07 | [facility] | | | | + + + +------+ + + + + | Result panel 347 | + + + + + +---------+ + + | | 2022-12-05 | [facility] | 12.76 | (missing) | (missing) | | (unavailable | 23:00:07 | [facility] | | | | + + + +---------+ + + + + | Result panel 348 | + + + + + +-------+ + + | | 2022-12-05 | [facility] | 131 | (missing) | (missing) | | (unavailable | 23:00:07 | [facility] | | | | + + + +-------+ + + + + | Result panel 349 | + + + + + +-------+ + + | | 2022-12-05 | [facility] | 3.6 | (missing) | (missing) | | (unavailable | 23:00:07 | [facility] | | | | + + + +-------+ + + + + | Result panel 350 | + + + + + +------+ + + | | 2022-12-05 | [facility] | 98 | (missing) | (missing) | | (unavailable | 23:00:07 | [facility] | | | | + + + +------+ + + + + | Result panel 351 | + + + + + +------+ + + | | 2022-12-05 | [facility] | 22 | (missing) | (missing) | | (unavailable | 23:00:07 | [facility] | | | | + + + +------+ + + + + | Result panel 352 | + + + + + +--------+ + + | | 2022-12-05 | [facility] | 14.6 | (missing) | (missing) | | (unavailable | 23::07 | [facility] | | | | + + + +--------+ + + + + | Result panel 353 | + + + + + +-------+---------+ + | | 2022-12-05 | [facility] | 9.5 | mg/dL | (missing) | | (unavailable | 23:00:07 | [facility] | | | | + + + +-------+---------+ + + + | Result panel 354 | + + + + + +-------+ + + | | 2022-12-05 | [facility] | 8.2 | (missing) | (missing) | | (unavailable | 23::07 | [facility] | | | | + + + +-------+ + + + + | Result panel 355 | + + + + + +-------+ + + | | 2022-12-05 | [facility] | 3.8 | (missing) | (missing) | | (unavailable | 23:00:07 | [facility] | | | | + + + +-------+ + + + + | Result panel 356 | + + + + + +-------+ + + | | 2022-12-05 | [facility] | 4.4 | (missing) | (missing) | | (unavailable | 23::07 | [facility] | | | | + + + +-------+ + + + + | Result panel 357 | + + + + + +--------+ + + | | 2022-12-05 | [facility] | 0.86 | (missing) | (missing) | | (unavailable | 23::07 | [facility] | | | | + + + +--------+ + + + + | Result panel 358 | + + + + + +-------+ + + | | 2022-12-05 | [facility] | 0.3 | (missing) | (missing) | | (unavailable | 23:00:07 | [facility] | | | | + + + +-------+ + + + + | Result panel 359 | + + + + + +------+ + + | | 2022-12-05 | [facility] | 17 | (missing) | (missing) | | (unavailable | 23:00:07 | [facility] | | | | + + + +------+ + + + + | Result panel 360 | + + + + + +------+ + + | | 2022-12-05 | [facility] | 30 | (missing) | (missing) | | (unavailable | 23:00:07 | [facility] | | | | + + + +------+ + + + + | Result panel 361 | + + + + + +------+ + + | | 2022-12-05 | [facility] | 82 | (missing) | (missing) | | (unavailable | 23:00:07 | [facility] | | | | + + + +------+ + + + + | Result panel 362 | + + + + + +---------+ + + | | 2022-12-05 | [facility] | 2.406 | (missing) | (missing) | | (unavailable | 23:00:07 | [facility] | | | | + + + +---------+ + + + + | Result panel 363 | + + + + + + + + + | | 2022-12-05 | [facility] | NEGATIVE | (missing) | (missing) | | (unavailable | 23:00:07 | [facility] | | | | + + + + + + + + + | Result panel 364 | + + + + + +-----+ + + | | 2022-12-05 | [facility] | 0 | (missing) | (missing) | | (unavailable | 23:00:07 | [facility] | | | | + + + +-----+ + + + + | Result panel 365 | + + + + + +------+ + + | | 2022-12-05 | [facility] | // | (missing) | (missing) | | (unavailable | 23:00:07 | [facility] | | | | + + + +------+ + + + + | Result panel 366 | + + + + + +-------+---------+ + | | 2022-12-05 | [facility] | 1.3 | mg/dL | (missing) | | (unavailable | ::07 | [facility] | | | | + + + +-------+---------+ + + + | Result panel 367 | + + + + + +------+ + + | | 2022-12-05 | [facility] | // | (missing) | (missing) | | (unavailable | 23:00:07 | [facility] | | | | + + + +------+ + + + + | Result panel 368 | + + + + + +-------+ + + | | 2022-12-05 | [facility] | 0.9 | (missing) | (missing) | | (unavailable | 23:: | [facility] | | | | + + + +-------+ + + + + | Result panel 369 | + + + + + +------+ + + | | 2022-12-05 | [facility] | // | (missing) | (missing) | | (unavailable | 23::07 | [facility] | | | | + + + +------+ + + + + | Result panel 370 | + + + + + +------+ + + | | 2022-12-05 | [facility] | <3 | (missing) | (missing) | | (unavailable | 23:00:07 | [facility] | | | | + + + +------+ + + + + | Result panel 371 | + + + + + +-------+ + + | | 2022-12-05 | [facility] | 8.5 | (missing) | (missing) | | (unavailable | 23:00:07 | [facility] | | | | + + + +-------+ + + + + | Result panel 372 | + + + + + +--------+ + + | | 2022-12-05 | [facility] | 4.10 | (missing) | (missing) | | (unavailable | 23:00:07 | [facility] | | | | + + + +--------+ + + + + | Result panel 373 | + + + + + +--------+ + + | | 2022-12-05 | [facility] | 10.6 | (missing) | (missing) | | (unavailable | 23::07 | [facility] | | | | + + + +--------+ + + + + | Result panel 374 | + + + + + +--------+ + + | | 2022-12-05 | [facility] | 32.9 | (missing) | (missing) | | (unavailable | 23:00:07 | [facility] | | | | + + + +--------+ + + + + | Result panel 375 | + + + + + +--------+ + + | | 2022-12-05 | [facility] | 80.2 | (missing) | (missing) | | (unavailable | : | [facility] | | | | + + + +--------+ + + + + | Result panel 376 | + + + + + +--------+ + + | | 2022-12-05 | [facility] | 25.8 | (missing) | (missing) | | (unavailable | ::07 | [facility] | | | | + + + +--------+ + + + + | Result panel 377 | + + + + + +--------+ + + | | 2022-12-05 | [facility] | 32.2 | (missing) | (missing) | | (unavailable | ::07 | [facility] | | | | + + + +--------+ + + + + | Result panel 378 | + + + + + +--------+ + + | | 2022-12-05 | [facility] | 16.1 | (missing) | (missing) | | (unavailable | ::07 | [facility] | | | | + + + +--------+ + + + + | Result panel 379 | + + + + + +-------+ + + | | 2022-12-05 | [facility] | 424 | (missing) | (missing) | | (unavailable | 23:00:07 | [facility] | | | | + + + +-------+ + + + + | Result panel 380 | + + + + + +--------+ + + | | 2022-12-05 | [facility] | 65.5 | (missing) | (missing) | | (unavailable | 23:00:07 | [facility] | | | | + + + +--------+ + + + + | Result panel 381 | + + + + + +--------+ + + | | 2022-12-05 | [facility] | 26.6 | (missing) | (missing) | | (unavailable | 23::07 | [facility] | | | | + + + +--------+ + + + + | Result panel 382 | + + + + + +-------+ + + | | 2022-12-05 | [facility] | 7.7 | (missing) | (missing) | | (unavailable | 23::07 | [facility] | | | | + + + +-------+ + + + + | Result panel 383 | + + + + + +-------+ + + | | 2022-12-05 | [facility] | 0.0 | (missing) | (missing) | | (unavailable | :: | [facility] | | | | + + + +-------+ + + + + | Result panel 384 | + + + + + +-------+ + + | | 2022-12-05 | [facility] | 0.2 | (missing) | (missing) | | (unavailable | ::07 | [facility] | | | | + + + +-------+ + + + + | Result panel 385 | + + + + + +-------+---------+ + | | 2022-12-05 | [facility] | 101 | mg/dL | (missing) | | (unavailable | 23::07 | [facility] | | | | + + + +-------+---------+ + + + | Result panel 386 | + + + + + +------+---------+ + | | 2022-12-05 | [facility] | 12 | mg/dL | (missing) | | (unavailable | 23:00:07 | [facility] | | | | + + + +------+---------+ + + + | Result panel 387 | + + + + + +--------+---------+ + | | 2022-12-05 | [facility] | 0.94 | mg/dL | (missing) | | (unavailable | 23:00:07 | [facility] | | | | + + + +--------+---------+ + + + | Result panel 388 | + + + + + +------+ + + | | 2022-12-05 | [facility] | 90 | (missing) | (missing) | | (unavailable | 23:00:07 | [facility] | | | | + + + +------+ + + + + | Result panel 389 | + + + + + +---------+ + + | | 2022-12-05 | [facility] | 12.76 | (missing) | (missing) | | (unavailable | ::07 | [facility] | | | | + + + +---------+ + + + + | Result panel 390 | + + + + + +-------+ + + | | 2022-12-05 | [facility] | 131 | (missing) | (missing) | | (unavailable | 23:00:07 | [facility] | | | | + + + +-------+ + + + + | Result panel 391 | + + + + + +-------+ + + | | 2022-12-05 | [facility] | 3.6 | (missing) | (missing) | | (unavailable | 23:00:07 | [facility] | | | | + + + +-------+ + + + + | Result panel 392 | + + + + + +------+ + + | | 2022-12-05 | [facility] | 98 | (missing) | (missing) | | (unavailable | 23:00:07 | [facility] | | | | + + + +------+ + + + + | Result panel 393 | + + + + + +------+ + + | | 2022-12-05 | [facility] | 22 | (missing) | (missing) | | (unavailable | 23:00:07 | [facility] | | | | + + + +------+ + + + + | Result panel 394 | + + + + + +--------+ + + | | 2022-12-05 | [facility] | 14.6 | (missing) | (missing) | | (unavailable | 23:00:07 | [facility] | | | | + + + +--------+ + + + + | Result panel 395 | + + + + + +-------+---------+ + | | 2022-12-05 | [facility] | 9.5 | mg/dL | (missing) | | (unavailable | 23:00:07 | [facility] | | | | + + + +-------+---------+ + + + | Result panel 396 | + + + + + +-------+ + + | | 2022-12-05 | [facility] | 8.2 | (missing) | (missing) | | (unavailable | 23:00:07 | [facility] | | | | + + + +-------+ + + + + | Result panel 397 | + + + + + +-------+ + + | | 2022-12-05 | [facility] | 3.8 | (missing) | (missing) | | (unavailable | 23::07 | [facility] | | | | + + + +-------+ + + + + | Result panel 398 | + + + + + +-------+ + + | | 2022-12-05 | [facility] | 4.4 | (missing) | (missing) | | (unavailable | 23::07 | [facility] | | | | + + + +-------+ + + + + | Result panel 399 | + + + + + +--------+ + + | | 2022-12-05 | [facility] | 0.86 | (missing) | (missing) | | (unavailable | 23::07 | [facility] | | | | + + + +--------+ + + + + | Result panel 400 | + + + + + +-------+ + + | | 2022-12-05 | [facility] | 0.3 | (missing) | (missing) | | (unavailable | ::07 | [facility] | | | | + + + +-------+ + + + + | Result panel 401 | + + + + + +------+ + + | | 2022-12-05 | [facility] | 17 | (missing) | (missing) | | (unavailable | 23:00:07 | [facility] | | | | + + + +------+ + + + + | Result panel 402 | + + + + + +------+ + + | | 2022-12-05 | [facility] | 30 | (missing) | (missing) | | (unavailable | 23:00:07 | [facility] | | | | + + + +------+ + + + + | Result panel 403 | + + + + + + + + + | | 2022-12-06 | [facility] | YELLOW | (missing) | (missing) | | (unavailable | 10:58:07 | [facility] | | | | + + + + + + + + + | Result panel 404 | + + + + + + + + + | | 2022-12-06 | [facility] | NORMAL | (missing) | (missing) | | (unavailable | 10:58:07 | [facility] | | | | + + + + + + + + + | Result panel 405 | + + + + + + + + + | | 2022-12-06 | [facility] | NEGATIVE | (missing) | (missing) | | (unavailable | 10:58:07 | [facility] | | | | + + + + + + + + + | Result panel 406 | + + + + + + + + + | | 2022-12-06 | [facility] | YELLOW | (missing) | (missing) | | (unavailable | 10:58:07 | [facility] | | | | + + + + + + + + + | Result panel 407 | + + + + + +---------+ + + | | 2022-12-06 | [facility] | CLEAR | (missing) | (missing) | | (unavailable | 10:58:07 | [facility] | | | | + + + +---------+ + + + + | Result panel 408 | + + + + + +---------+ + + | | 2022-12-06 | [facility] | LARGE | (missing) | (missing) | | (unavailable | 10:58:07 | [facility] | | | | + + + +---------+ + + + + | Result panel 409 | + + + + + + + + + | | 2022-12-06 | [facility] | NEGATIVE | (missing) | (missing) | | (unavailable | 10:58:07 | [facility] | | | | + + + + + + + + + | Result panel 410 | + + + + + + + + + | | 2022-12-06 | [facility] | NEGATIVE | (missing) | (missing) | | (unavailable | 10:58:07 | [facility] | | | | + + + + + + + + + | Result panel 411 | + + + + + +---------+ + + | | 2022-12-06 | [facility] | 1.015 | (missing) | (missing) | | (unavailable | 10:58:07 | [facility] | | | | + + + +---------+ + + + + | Result panel 412 | + + + + + + + + + | | 2022-12-06 | [facility] | NEGATIVE | (missing) | (missing) | | (unavailable | 10:58:07 | [facility] | | | | + + + + + + + + + | Result panel 413 | + + + + + +-------+ + + | | 2022-12-06 | [facility] | 6.5 | (missing) | (missing) | | (unavailable | 10:58:07 | [facility] | | | | + + + +-------+ + + + + | Result panel 414 | + + + + + + + + + | | 2022-12-06 | [facility] | NEGATIVE | (missing) | (missing) | | (unavailable | 10:58:07 | [facility] | | | | + + + + + + + + + | Result panel 415 | + + + + + + + + + | | 2022-12-06 | [facility] | NORMAL | (missing) | (missing) | | (unavailable | 10:58:07 | [facility] | | | | + + + + + + + + + | Result panel 416 | + + + + + + + + + | | 2022-12-06 | [facility] | NEGATIVE | (missing) | (missing) | | (unavailable | 10:58:07 | [facility] | | | | + + + + + + + + + | Result panel 417 | + + + + + + + + + | | 2022-12-06 | [facility] | NEGATIVE | (missing) | (missing) | | (unavailable | 10:58:07 | [facility] | | | | + + + + + + + + + | Result panel 418 | + + + + + + + + + | | 2022-12-06 | [facility] | NEGATIVE | (missing) | (missing) | | (unavailable | 10:58:07 | [facility] | | | | + + + + + + + + + | Result panel 419 | + + + + + + + + + | | 2022-12-06 | [facility] | NEGATIVE | (missing) | (missing) | | (unavailable | 10:58:07 | [facility] | | | | + + + + + + + + + | Result panel 420 | + + + + + + + + + | | 2022-12-06 | [facility] | NEGATIVE | (missing) | (missing) | | (unavailable | 10:58:07 | [facility] | | | | + + + + + + + + + | Result panel 421 | + + + + + + + + + | | 2022-12-06 | [facility] | NEGATIVE | (missing) | (missing) | | (unavailable | 10:58:07 | [facility] | | | | + + + + + + + + + | Result panel 422 | + + + + + + + + + | | 2022-12-06 | [facility] | NEGATIVE | (missing) | (missing) | | (unavailable | 10:58:07 | [facility] | | | | + + + + + + + + + | Result panel 423 | + + + + + + + + + | | 2022-12-06 | [facility] | NEGATIVE | (missing) | (missing) | | (unavailable | 10:58:07 | [facility] | | | | + + + + + + + + + | Result panel 424 | + + + + + + + + + | | 2022-12-06 | [facility] | NEGATIVE | (missing) | (missing) | | (unavailable | 10:58:07 | [facility] | | | | + + + + + + + + + | Result panel 425 | + + + + + + + + + | | 2022-12-06 | [facility] | NEGATIVE | (missing) | (missing) | | (unavailable | 10:58:07 | [facility] | | | | + + + + + + + + + | Result panel 426 | + + + + + + + + + | | 2022-12-06 | [facility] | NEGATIVE | (missing) | (missing) | | (unavailable | 10:58:07 | [facility] | | | | + + + + + + + + + | Result panel 427 | + + + + + + + + + | | 2022-12-06 | [facility] | NEGATIVE | (missing) | (missing) | | (unavailable | 10:58:07 | [facility] | | | | + + + + + + + + + | Result panel 428 | + + + + + + + + + | | 2022-12-06 | [facility] | NEGATIVE | (missing) | (missing) | | (unavailable | 10:58:07 | [facility] | | | | + + + + + + + + + | Result panel 429 | + + + + + + + + + | | 2022-12-06 | [facility] | NEGATIVE | (missing) | (missing) | | (unavailable | 10:58:07 | [facility] | | | | + + + + + + + + + | Result panel 430 | + + + + + + + + + | | 2022-12-06 | [facility] | NEGATIVE | (missing) | (missing) | | (unavailable | 10:58:07 | [facility] | | | | + + + + + + + + + | Result panel 431 | + + + + + + + + + | | 2022-12-06 | [facility] | NEGATIVE | (missing) | (missing) | | (unavailable | 10:58:07 | [facility] | | | | + + + + + + + + + | Result panel 432 | + + + + + + + + + | | 2022-12-06 | [facility] | NEGATIVE | (missing) | (missing) | | (unavailable | 10:58:07 | [facility] | | | | + + + + + + + + + | Result panel 433 | + + + + + + + + + | | 2022-12-06 | [facility] | NEGATIVE | (missing) | (missing) | | (unavailable | 10:58:07 | [facility] | | | | + + + + + + + + + | Result panel 434 | + + + + + + + + + | | 2022-12-06 | [facility] | NEGATIVE | (missing) | (missing) | | (unavailable | 10:58:07 | [facility] | | | | + + + + + + + + + | Result panel 435 | + + + + + + + + + | | 2022-12-06 | [facility] | NEGATIVE | (missing) | (missing) | | (unavailable | 10:58:07 | [facility] | | | | + + + + + + + + + | Result panel 436 | + + + + + + + + + | | 2022-12-06 | [facility] | NEGATIVE | (missing) | (missing) | | (unavailable | 10:58:07 | [facility] | | | | + + + + + + + + + | Result panel 437 | + + + + + + + + + | | 2022-12-06 | [facility] | YELLOW | (missing) | (missing) | | (unavailable | 10:58:07 | [facility] | | | | + + + + + + + + + | Result panel 438 | + + + + + +---------+ + + | | 2022-12-06 | [facility] | CLEAR | (missing) | (missing) | | (unavailable | 10:58:07 | [facility] | | | | + + + +---------+ + + + + | Result panel 439 | + + + + + +---------+ + + | | 2022-12-06 | [facility] | LARGE | (missing) | (missing) | | (unavailable | 10:58:07 | [facility] | | | | + + + +---------+ + + + + | Result panel 440 | + + + + + + + + + | | 2022-12-06 | [facility] | NEGATIVE | (missing) | (missing) | | (unavailable | 10:58:07 | [facility] | | | | + + + + + + + + + | Result panel 441 | + + + + + + + + + | | 2022-12-06 | [facility] | NEGATIVE | (missing) | (missing) | | (unavailable | 10:58:07 | [facility] | | | | + + + + + + + + + | Result panel 442 | + + + + + + + + + | | 2022-12-06 | [facility] | NEGATIVE | (missing) | (missing) | | (unavailable | 10:58:07 | [facility] | | | | + + + + + + + + + | Result panel 443 | + + + + + +---------+ + + | | 2022-12-06 | [facility] | 1.015 | (missing) | (missing) | | (unavailable | 10:58:07 | [facility] | | | | + + + +---------+ + + + + | Result panel 444 | + + + + + + + + + | | 2022-12-06 | [facility] | NEGATIVE | (missing) | (missing) | | (unavailable | 10:58:07 | [facility] | | | | + + + + + + + + + | Result panel 445 | + + + + + +-------+ + + | | 2022-12-06 | [facility] | 6.5 | (missing) | (missing) | | (unavailable | 10:58:07 | [facility] | | | | + + + +-------+ + + + + | Result panel 446 | + + + + + + + + + | | 2022-12-06 | [facility] | NEGATIVE | (missing) | (missing) | | (unavailable | 10:58:07 | [facility] | | | | + + + + + + + + + | Result panel 447 | + + + + + + + + + | | 2022-12-06 | [facility] | NORMAL | (missing) | (missing) | | (unavailable | 10:58:07 | [facility] | | | | + + + + + + + + + | Result panel 448 | + + + + + + + + + | | 2022-12-06 | [facility] | NEGATIVE | (missing) | (missing) | | (unavailable | 10:58:07 | [facility] | | | | + + + + + + + + + | Result panel 449 | + + + + + + + + + | | 2022-12-06 | [facility] | NEGATIVE | (missing) | (missing) | | (unavailable | 10:58:07 | [facility] | | | | + + + + + + + + + | Result panel 450 | + + + + + + + + + | | 2022-12-06 | [facility] | NEGATIVE | (missing) | (missing) | | (unavailable | 10:58:07 | [facility] | | | | + + + + + + + + + | Result panel 451 | + + + + + + + + + | | 2022-12-06 | [facility] | NEGATIVE | (missing) | (missing) | | (unavailable | 10:58:07 | [facility] | | | | + + + + + + + + + | Result panel 452 | + + + + + + + + + | | 2022-12-06 | [facility] | NEGATIVE | (missing) | (missing) | | (unavailable | 10:58:07 | [facility] | | | | + + + + + + + + + | Result panel 453 | + + + + + + + + + | | 2022-12-06 | [facility] | NEGATIVE | (missing) | (missing) | | (unavailable | 10:58:07 | [facility] | | | | + + + + + + + + + | Result panel 454 | + + + + + + + + + | | 2022-12-06 | [facility] | NEGATIVE | (missing) | (missing) | | (unavailable | 10:58:07 | [facility] | | | | + + + + + + + + + | Result panel 455 | + + + + + + + + + | | 2022-12-06 | [facility] | NEGATIVE | (missing) | (missing) | | (unavailable | 10:58:07 | [facility] | | | | + + + + + + + + + | Result panel 456 | + + + + + + + + + | | 2022-12-06 | [facility] | NEGATIVE | (missing) | (missing) | | (unavailable | 10:58:07 | [facility] | | | | + + + + + + + + + | Result panel 457 | + + + + + + + + + | | 2022-12-06 | [facility] | NEGATIVE | (missing) | (missing) | | (unavailable | 10:58:07 | [facility] | | | | + + + + + + + + + | Result panel 458 | + + + + + + + + + | | 2022-12-06 | [facility] | NEGATIVE | (missing) | (missing) | | (unavailable | 10:58:07 | [facility] | | | | + + + + + + + + + | Result panel 459 | + + + + + + + + + | | 2022-12-06 | [facility] | NEGATIVE | (missing) | (missing) | | (unavailable | 10:58:07 | [facility] | | | | + + + + + + + + + | Result panel 460 | + + + + + + + + + | | 2022-12-06 | [facility] | NEGATIVE | (missing) | (missing) | | (unavailable | 10:58:07 | [facility] | | | | + + + + + + + + + | Result panel 461 | + + + + + + + + + | | 2022-12-06 | [facility] | NEGATIVE | (missing) | (missing) | | (unavailable | 10:58:07 | [facility] | | | | + + + + + + + + + | Result panel 462 | + + + + + +---------+ + + | | 2022-12-06 | [facility] | CLEAR | (missing) | (missing) | | (unavailable | 10:58:07 | [facility] | | | | + + + +---------+ + + + + | Result panel 463 | + + + + + + + + + | | 2022-12-06 | [facility] | NEGATIVE | (missing) | (missing) | | (unavailable | 10:58:07 | [facility] | | | | + + + + + + + + + | Result panel 464 | + + + + + + + + + | | 2022-12-06 | [facility] | NEGATIVE | (missing) | (missing) | | (unavailable | 10:58:07 | [facility] | | | | + + + + + + + + + | Result panel 465 | + + + + + + + + + | | 2022-12-06 | [facility] | NEGATIVE | (missing) | (missing) | | (unavailable | 10:58:07 | [facility] | | | | + + + + + + + + + | Result panel 466 | + + + + + + + + + | | 2022-12-06 | [facility] | NEGATIVE | (missing) | (missing) | | (unavailable | 10:58:07 | [facility] | | | | + + + + + + + + + | Result panel 467 | + + + + + + + + + | | 2022-12-06 | [facility] | NEGATIVE | (missing) | (missing) | | (unavailable | 10:58:07 | [facility] | | | | + + + + + + + + + | Result panel 468 | + + + + + + + + + | | 2022-12-06 | [facility] | NEGATIVE | (missing) | (missing) | | (unavailable | 10:58:07 | [facility] | | | | + + + + + + + + + | Result panel 469 | + + + + + + + + + | | 2022-12-06 | [facility] | NEGATIVE | (missing) | (missing) | | (unavailable | 10:58:07 | [facility] | | | | + + + + + + + + + | Result panel 470 | + + + + + + + + + | | 2022-12-06 | [facility] | NEGATIVE | (missing) | (missing) | | (unavailable | 10:58:07 | [facility] | | | | + + + + + + + + + | Result panel 471 | + + + + + +---------+ + + | | 2022-12-06 | [facility] | LARGE | (missing) | (missing) | | (unavailable | 10:58:07 | [facility] | | | | + + + +---------+ + + + + | Result panel 472 | + + + + + + + + + | | 2022-12-06 | [facility] | NEGATIVE | (missing) | (missing) | | (unavailable | 10:58:07 | [facility] | | | | + + + + + + + + + | Result panel 473 | + + + + + + + + + | | 2022-12-06 | [facility] | NEGATIVE | (missing) | (missing) | | (unavailable | 10:58:07 | [facility] | | | | + + + + + + + + + | Result panel 474 | + + + + + +---------+ + + | | 2022-12-06 | [facility] | 1.015 | (missing) | (missing) | | (unavailable | 10:58:07 | [facility] | | | | + + + +---------+ + + + + | Result panel 475 | + + + + + + + + + | | 2022-12-06 | [facility] | NEGATIVE | (missing) | (missing) | | (unavailable | 10:58:07 | [facility] | | | | + + + + + + + + + | Result panel 476 | + + + + + +-------+ + + | | 2022-12-06 | [facility] | 6.5 | (missing) | (missing) | | (unavailable | 10:58:07 | [facility] | | | | + + + +-------+ + + + + | Result panel 477 | + + + + + + + + + | | 2022-12-06 | [facility] | NEGATIVE | (missing) | (missing) | | (unavailable | 10:58:07 | [facility] | | | | + + + + + + + Social History + + + + | date | description | facility | + + + + | 2021-11-13 00:00 | Unknown if ever smoked | [facility] | + + + + | 2021-11-22 00:00 | Unknown if ever smoked | [facility] | + + + + | 2021-12-01 00:00 | Unknown if ever smoked | [facility] | + + + + | 2022-04-27 00:00 | Unknown if ever smoked | [facility] | + + + + | 2022-11-01 00:00 | Unknown if ever smoked | [facility] | + + + + | 2022-12-06 00:00 | Unknown if ever smoked | [facility] | + + + + | 2022-12-19 00:00 | Unknown if ever smoked | [facility] | + + + + | 2022-12-22 00:00 | Unknown if ever smoked | [facility] | + + + + Vital Signs + + + +---------+ | date | measurement | value | units | + + + +---------+ | 2021-10-10 00:00 | BMI | 22.7 | kg/m2 | + + + +---------+ | 2021-10-10 00:00 | BMI | 50 | th | + + + +---------+ | 2021-10-10 00:00 | BP_diastolic | 66 | mmHg | + + + +---------+ | 2021-10-10 00:00 | BP_systolic | 105 | mmHg | + + + +---------+ | 2021-10-10 00:00 | heart_rate | 77 | /min | + + + +---------+ | 2021-10-10 00:00 | height_metric | 149.86 | cm | + + + +---------+ | 2021-10-10 00:00 | height_standard | 59 | in | + + + +---------+ | 2021-10-10 00:00 | o2_saturation | 96 | % | + + + +---------+ | 2021-10-10 00:00 | respiration_rate | 16 | /min | + + + +---------+ | 2021-10-10 00:00 | temperature_metric | 36.89 | C | | | | | | + + + +---------+ | 2021-10-10 00:00 | | 98.4 | F | | | temperature_standar | | | | | d | | | + + + +---------+ | 2021-10-10 00:00 | weight_metric | 51 | kg | + + + +---------+ | 2021-10-10 00:00 | weight_standard | 112.44 | lb | + + + +---------+ | 2021-10-11 00:00 | BMI | 22.8 | kg/m2 | + + + +---------+ | 2021-10-11 00:00 | BMI | 50 | th | + + + +---------+ | 2021-10-11 00:00 | BP_diastolic | 75 | mmHg | + + + +---------+ | 2021-10-11 00:00 | BP_systolic | 113 | mmHg | + + + +---------+ | 2021-10-11 00:00 | heart_rate | 89 | /min | + + + +---------+ | 2021-10-11 00:00 | height_metric | 149.86 | cm | + + + +---------+ | 2021-10-11 00:00 | height_standard | 59 | in | + + + +---------+ | 2021-10-11 00:00 | o2_saturation | 100 | % | + + + +---------+ | 2021-10-11 00:00 | respiration_rate | 16 | /min | + + + +---------+ | 2021-10-11 00:00 | temperature_metric | 37.39 | C | | | | | | + + + +---------+ | 2021-10-11 00:00 | | 99.3 | F | | | temperature_standar | | | | | d | | | + + + +---------+ | 2021-10-11 00:00 | weight_metric | 51.17 | kg | + + + +---------+ | 2021-10-11 00:00 | weight_standard | 112.81 | lb | + + + +---------+ | 2021-11-01 00:00 | BMI | 23.2 | kg/m2 | + + + +---------+ | 2021-11-01 00:00 | BMI | 50 | th | + + + +---------+ | 2021-11-01 00:00 | BP_diastolic | 56 | mmHg | + + + +---------+ | 2021-11-01 00:00 | BP_systolic | 104 | mmHg | + + + +---------+ | 2021-11-01 00:00 | heart_rate | 82 | /min | + + + +---------+ | 2021-11-01 00:00 | height_metric | 149.86 | cm | + + + +---------+ | 2021-11-01 00:00 | height_standard | 59 | in | + + + +---------+ | 2021-11-01 00:00 | o2_saturation | 99 | % | + + + +---------+ | 2021-11-01 00:00 | respiration_rate | 16 | /min | + + + +---------+ | 2021-11-01 00:00 | temperature_metric | 36.89 | C | | | | | | + + + +---------+ | 2021-11-01 00:00 | | 98.4 | F | | | temperature_standar | | | | | d | | | + + + +---------+ | 2021-11-01 00:00 | weight_metric | 52 | kg | + + + +---------+ | 2021-11-01 00:00 | weight_standard | 114.64 | lb | + + + +---------+ | 2021-11-20 00:00 | BMI | 23.1 | kg/m2 | + + + +---------+ | 2021-11-20 00:00 | BMI | 50 | th | + + + +---------+ | 2021-11-20 00:00 | height_metric | 149.86 | cm | + + + +---------+ | 2021-11-20 00:00 | height_standard | 59 | in | + + + +---------+ | 2021-11-20 00:00 | weight_metric | 51.99 | kg | + + + +---------+ | 2021-11-20 00:00 | weight_metric | 52 | kg | + + + +---------+ | 2021-11-20 00:00 | weight_standard | 114.62 | lb | + + + +---------+ | 2021-11-20 00:00 | weight_standard | 114.63 | lb | + + + +---------+ | 2021-11-21 00:00 | BP_diastolic | 53 | mmHg | + + + +---------+ | 2021-11-21 00:00 | BP_diastolic | 55 | mmHg | + + + +---------+ | 2021-11-21 00:00 | BP_systolic | 90 | mmHg | + + + +---------+ | 2021-11-21 00:00 | BP_systolic | 99 | mmHg | + + + +---------+ | 2021-11-21 00:00 | heart_rate | 53 | /min | + + + +---------+ | 2021-11-21 00:00 | heart_rate | 74 | /min | + + + +---------+ | 2021-11-21 00:00 | o2_saturation | 100 | % | + + + +---------+ | 2021-11-21 00:00 | o2_saturation | 98 | % | + + + +---------+ | 2021-11-21 00:00 | respiration_rate | 14 | /min | + + + +---------+ | 2021-11-21 00:00 | respiration_rate | 16 | /min | + + + +---------+ | 2021-11-21 00:00 | temperature_metric | 36.94 | C | | | | | | + + + +---------+ | 2021-11-21 00:00 | temperature_metric | 37 | C | | | | | | + + + +---------+ | 2021-11-21 00:00 | | 98.5 | F | | | temperature_standar | | | | | d | | | + + + +---------+ | 2021-11-21 00:00 | | 98.6 | F | | | temperature_standar | | | | | d | | | + + + +---------+ | 2021-11-23 00:00 | BMI | 23.1 | kg/m2 | + + + +---------+ | 2021-11-23 00:00 | BMI | 50 | th | + + + +---------+ | 2021-11-23 00:00 | height_metric | 149.86 | cm | + + + +---------+ | 2021-11-23 00:00 | height_standard | 59 | in | + + + +---------+ | 2021-11-23 00:00 | weight_metric | 51.99 | kg | + + + +---------+ | 2021-11-23 00:00 | weight_metric | 52 | kg | + + + +---------+ | 2021-11-23 00:00 | weight_standard | 114.62 | lb | + + + +---------+ | 2021-11-23 00:00 | weight_standard | 114.63 | lb | + + + +---------+ | 2021-11-30 00:00 | BP_diastolic | 71 | mmHg | + + + +---------+ | 2021-11-30 00:00 | BP_systolic | 108 | mmHg | + + + +---------+ | 2021-11-30 00:00 | heart_rate | 82 | /min | + + + +---------+ | 2021-11-30 00:00 | o2_saturation | 100 | % | + + + +---------+ | 2021-11-30 00:00 | respiration_rate | 16 | /min | + + + +---------+ | 2021-11-30 00:00 | temperature_metric | 37.17 | C | | | | | | + + + +---------+ | 2021-11-30 00:00 | | 98.9 | F | | | temperature_standar | | | | | d | | | + + + +---------+ | 2022-04-26 00:00 | BMI | 23.2 | kg/m2 | + + + +---------+ | 2022-04-26 00:00 | BMI | 50 | % | + + + +---------+ | 2022-04-26 00:00 | height_metric | 149.86 | cm | + + + +---------+ | 2022-04-26 00:00 | height_standard | 59 | in | + + + +---------+ | 2022-04-26 00:00 | weight_metric | 52.16 | kg | + + + +---------+ | 2022-04-26 00:00 | weight_standard | 114.99 | lb | + + + +---------+ | 2022-04-26 00:00 | weight_standard | 115 | lb | + + + +---------+ | 2022-04-27 00:00 | BP_diastolic | 63 | mmHg | + + + +---------+ | 2022-04-27 00:00 | BP_systolic | 98 | mmHg | + + + +---------+ | 2022-04-27 00:00 | heart_rate | 83 | /min | + + + +---------+ | 2022-04-27 00:00 | o2_saturation | 100 | % | + + + +---------+ | 2022-04-27 00:00 | respiration_rate | 16 | /min | + + + +---------+ | 2022-04-27 00:00 | temperature_metric | 36.5 | C | | | | | | + + + +---------+ | 2022-04-27 00:00 | | 97.7 | F | | | temperature_standar | | | | | d | | | + + + +---------+ | 2022-10-26 00:00 | BMI | 23.2 | kg/m2 | + + + +---------+ | 2022-10-26 00:00 | BMI | 50 | % | + + + +---------+ | 2022-10-26 00:00 | height_metric | 149.86 | cm | + + + +---------+ | 2022-10-26 00:00 | height_standard | 59 | in | + + + +---------+ | 2022-10-26 00:00 | weight_metric | 52.16 | kg | + + + +---------+ | 2022-10-26 00:00 | weight_standard | 115 | lb | + + + +---------+ | 2022-11-01 00:00 | BP_diastolic | 90 | mmHg | + + + +---------+ | 2022-11-01 00:00 | BP_systolic | 107 | mmHg | + + + +---------+ | 2022-11-01 00:00 | heart_rate | 73 | /min | + + + +---------+ | 2022-11-01 00:00 | o2_saturation | 100 | % | + + + +---------+ | 2022-11-01 00:00 | respiration_rate | 17 | /min | + + + +---------+ | 2022-11-01 00:00 | temperature_metric | 37.11 | C | | | | | | + + + +---------+ | 2022-11-01 00:00 | | 98.8 | F | | | temperature_standar | | | | | d | | | + + + +---------+ | 2022-12-05 00:00 | BMI | 23.2 | kg/m2 | + + + +---------+ | 2022-12-05 00:00 | BMI | 50 | % | + + + +---------+ | 2022-12-05 00:00 | height_metric | 149.86 | cm | + + + +---------+ | 2022-12-05 00:00 | height_standard | 59 | in | + + + +---------+ | 2022-12-05 00:00 | weight_metric | 52.16 | kg | + + + +---------+ | 2022-12-05 00:00 | weight_standard | 114.99 | lb | + + + +---------+ | 2022-12-05 00:00 | weight_standard | 115 | lb | + + + +---------+ | 2022-12-06 00:00 | BP_diastolic | 62 | mmHg | + + + +---------+ | 2022-12-06 00:00 | BP_systolic | 108 | mmHg | + + + +---------+ | 2022-12-06 00:00 | heart_rate | 95 | /min | + + + +---------+ | 2022-12-06 00:00 | o2_saturation | 100 | % | + + + +---------+ | 2022-12-06 00:00 | respiration_rate | 16 | /min | + + + +---------+ | 2022-12-06 00:00 | temperature_metric | 37.06 | C | | | | | | + + + +---------+ | 2022-12-06 00:00 | | 98.7 | F | | | temperature_standar | | | | | d | | | + + + +---------+ | 2022-12-19 00:00 | BMI | 23.2 | kg/m2 | + + + +---------+ | 2022-12-19 00:00 | BMI | 50 | % | + + + +---------+ | 2022-12-19 00:00 | BP_diastolic | 71 | mmHg | + + + +---------+ | 2022-12-19 00:00 | BP_systolic | 109 | mmHg | + + + +---------+ | 2022-12-19 00:00 | heart_rate | 72 | /min | + + + +---------+ | 2022-12-19 00:00 | height_metric | 149.86 | cm | + + + +---------+ | 2022-12-19 00:00 | height_standard | 59 | in | + + + +---------+ | 2022-12-19 00:00 | o2_saturation | 99 | % | + + + +---------+ | 2022-12-19 00:00 | respiration_rate | 18 | /min | + + + +---------+ | 2022-12-19 00:00 | temperature_metric | 36.56 | C | | | | | | + + + +---------+ | 2022-12-19 00:00 | | 97.8 | F | | | temperature_standar | | | | | d | | | + + + +---------+ | 2022-12-19 00:00 | weight_metric | 52.16 | kg | + + + +---------+ | 2022-12-19 00:00 | weight_standard | 114.99 | lb | + + + +---------+ | 2022-12-19 00:00 | weight_standard | 115 | lb | + + + +---------+ | 2022-12-22 00:00 | BMI | 23.2 | kg/m2 | + + + +---------+ | 2022-12-22 00:00 | BMI | 50 | % | + + + +---------+ | 2022-12-22 00:00 | BP_diastolic | 72 | mmHg | + + + +---------+ | 2022-12-22 00:00 | BP_systolic | 120 | mmHg | + + + +---------+ | 2022-12-22 00:00 | heart_rate | 88 | /min | + + + +---------+ | 2022-12-22 00:00 | height_metric | 149.86 | cm | + + + +---------+ | 2022-12-22 00:00 | height_standard | 59 | in | + + + +---------+ | 2022-12-22 00:00 | o2_saturation | 98 | % | + + + +---------+ | 2022-12-22 00:00 | respiration_rate | 16 | /min | + + + +---------+ | 2022-12-22 00:00 | temperature_metric | 37.72 | C | | | | | | + + + +---------+ | 2022-12-22 00:00 | | 99.9 | F | | | temperature_standar | | | | | d | | | + + + +---------+ | 2022-12-22 00:00 | weight_metric | 52.16 | kg | + + + +---------+ | 2022-12-22 00:00 | weight_standard | 114.99 | lb | + + + +---------+ | 2022-12-22 00:00 | weight_standard | 115 | lb | + + + +---------+"
--- OUTSIDE RECORDS SUMMARY | ~2023-01-02 | XMS | Continuity of Care Document ---
Demographics + + + | Address | [address] | | | [place] [address] | + + + | Preferred Language | Unknown | + + + | Marital Status | | + + + | Yazidism Affiliation | Unknown | + + + | Race | White | + + + | Ethnic Group | Not or | + + + Author + + + | Author | [facility] | + + + | Organization | [facility] | + + + | Address | [address] | | | [place] [address] | + + + | Phone | | + + + Care Team Providers + + + + | Care Medicare Specialist Name | Role | Phone | + [...] | 2022-11-01 00:00 | CETIRIZINE HCL | [facility] | + + + + | 2022-12-06 00:00 | CETIRIZINE HCL | [facility] | + + + + | 2022-12-19 00:00 | CETIRIZINE HCL | [facility] | + + + + | 2022-12-22 00:00 | CETIRIZINE HCL | [facility] | + + + + | 2021-11-13 00:00 | CETIRIZINE HCL | [facility] | + + + + | 2021-11-22 00:00 | CETIRIZINE HCL | [facility] | + + + + | 2021-12-01 00:00 | CETIRIZINE HCL | [facility] | + + + + | 2022-04-27 00:00 | CETIRIZINE HCL | [facility] | + + + + | 2022-11-01 00:00 | CETIRIZINE HCL | [facility] | + + + + | 2022-12-06 00:00 | CETIRIZINE HCL | [facility] | + + + + | 2022-12-19 00:00 | CETIRIZINE HCL | [facility] | + + + + | 2022-12-22 00:00 | CETIRIZINE HCL | [facility] | + + + + | 2021-11-13 00:00 | DIPHENHYDRAMINE HCL | [facility] | + + + + | 2021-11-22 00:00 | DIPHENHYDRAMINE HCL | [facility] | + + + + | 2021-12-01 00:00 | DIPHENHYDRAMINE HCL | [facility] | + + + + | 2022-04-27 00:00 | DIPHENHYDRAMINE HCL | [facility] | + + + + | 2022-11-01 00:00 | DIPHENHYDRAMINE HCL | [facility] | + + + + | 2022-12-06 00:00 | DIPHENHYDRAMINE HCL | [facility] | + + + + | 2022-12-19 00:00 | DIPHENHYDRAMINE HCL | [facility] | + + + + | 2022-12-22 00:00 | DIPHENHYDRAMINE HCL | [facility] | + + + + | 2021-11-13 00:00 | WHEAT DEXTRIN | [facility] | + + + + | 2021-11-22 00:00 | WHEAT DEXTRIN | [facility] | + + + + | 2021-12-01 00:00 | WHEAT DEXTRIN | [facility] | + + + + | 2022-04-27 00:00 | WHEAT DEXTRIN | [facility] | + + + + | 2022-11-01 00:00 | WHEAT DEXTRIN | [facility] | + + + + | 2022-12-06 00:00 | WHEAT DEXTRIN | [facility] | + + + + | 2022-12-19 00:00 | WHEAT DEXTRIN | [facility] | + + + + | 2022-12-22 00:00 | WHEAT DEXTRIN | [facility] | + + + + | 2021-11-13 00:00 | DOCUSATE CALCIUM | [facility] | + + + + | 2021-11-22 00:00 | DOCUSATE CALCIUM | [facility] | + + + + | 2021-12-01 00:00 | DOCUSATE CALCIUM | [facility] | + + + + | 2022-04-27 00:00 | DOCUSATE CALCIUM | [facility] | + + + + | 2022-11-01 00:00 | DOCUSATE CALCIUM | [facility] | + + + + | 2022-12-06 00:00 | DOCUSATE CALCIUM | [facility] | + + + + | 2022-12-19 00:00 | DOCUSATE CALCIUM | [facility] | + + + + | 2022-12-22 00:00 | DOCUSATE CALCIUM | [facility] | + + + + | 2021-11-13 00:00 | FLUTICASONE PROPIONATE 50 | [facility] | | | MCG | | + + + + | 2021-11-22 00:00 | FLUTICASONE PROPIONATE 50 | [facility] | | | MCG | | + + + + | 2021-12-01 00:00 | FLUTICASONE PROPIONATE 50 | [facility] | | | MCG | | + + + + | 2022-04-27 00:00 | FLUTICASONE PROPIONATE 50 | [facility] | | | MCG | | + + + + | 2021-11-01 00:00 | CEPHALEXIN | [facility] | + + + + | 2021-11-01 00:00 | CEPHALEXIN | [facility] | + + + + | 2021-11-01 00:00 | CEPHALEXIN | [facility] | + + + + | 2021-11-13 00:00 | LITHIUM CARBONATE | [facility] | + + + + | 2021-11-22 00:00 | LITHIUM CARBONATE | [facility] | + + + + | 2021-12-01 00:00 | LITHIUM CARBONATE | [facility] | + + + + | 2022-04-27 00:00 | LITHIUM CARBONATE | [facility] | + + + + | 2022-11-01 00:00 | LITHIUM CARBONATE | [facility] | + + + + | 2022-12-06 00:00 | LITHIUM CARBONATE | [facility] | + + + + | 2022-12-19 00:00 | LITHIUM CARBONATE | [facility] | + + + + | 2022-12-22 00:00 | LITHIUM CARBONATE | [facility] | + + + + | 2021-11-13 00:00 | MELATONIN | [facility] | + + + + | 2021-11-22 00:00 | MELATONIN | [facility] | + + + + | 2021-12-01 00:00 | MELATONIN | [facility] | + + + + | 2022-04-27 00:00 | MELATONIN | [facility] | + + + + | 2022-11-01 00:00 | MELATONIN | [facility] | + + + + | 2022-12-06 00:00 | MELATONIN | [facility] | + + + + | 2022-12-19 00:00 | MELATONIN | [facility] | + + + + | 2022-12-22 00:00 | MELATONIN | [facility] | + + + + | 2021-11-13 00:00 | OLANZAPINE | [facility] | + + + + | 2021-11-22 00:00 | OLANZAPINE | [facility] | + + + + | 2021-12-01 00:00 | OLANZAPINE | [facility] | + + + + | 2022-04-27 00:00 | OLANZAPINE | [facility] | + + + + | 2022-11-01 00:00 | OLANZAPINE | [facility] | + + + + | 2022-12-06 00:00 | OLANZAPINE | [facility] | + + + + | 2022-12-19 00:00 | OLANZAPINE | [facility] | + + + + | 2022-12-22 00:00 | OLANZAPINE | [facility] | + + + + | 2021-11-13 00:00 | OLANZAPINE | [facility] | + + + + | 2021-11-22 00:00 | OLANZAPINE | [facility] | + + + + | 2021-12-01 00:00 | OLANZAPINE | [facility] | + + + + | 2022-04-27 00:00 | OLANZAPINE | [facility] | + + + + | 2021-11-13 00:00 | PRAZOSIN HCL | [facility] | + + + + | 2021-11-22 00:00 | PRAZOSIN HCL | [facility] | + + + + | 2021-12-01 00:00 | PRAZOSIN HCL | [facility] | + + + + | 2022-04-27 00:00 | PRAZOSIN HCL | [facility] | + + + + | 2022-11-01 00:00 | PRAZOSIN HCL | [facility] | + + + + | 2022-12-06 00:00 | PRAZOSIN HCL | [facility] | + + + + | 2022-12-19 00:00 | PRAZOSIN HCL | [facility] | + + + + | 2022-12-22 00:00 | PRAZOSIN HCL | [facility] | + + + + | 2021-11-13 00:00 | ACETAMINOPHEN | [facility] | + + + + | 2021-11-22 00:00 | ACETAMINOPHEN | [facility] | + + + + | 2021-12-01 00:00 | ACETAMINOPHEN | [facility] | + + + + | 2022-04-27 00:00 | ACETAMINOPHEN | [facility] | + + + + | 2022-11-01 00:00 | ACETAMINOPHEN | [facility] | + + + + | 2022-12-06 00:00 | ACETAMINOPHEN | [facility] | + + + + | 2022-12-19 00:00 | ACETAMINOPHEN | [facility] | + + + + | 2022-12-22 00:00 | ACETAMINOPHEN | [facility] | + + + + | 2022-04-27 00:00 | CIPROFLOXACIN HCL/DEXAMETH | [facility] | | | | | + + + + | 2022-12-19 00:00 | AMOXICILLIN/POTASSIUM CLAV | [facility] | | | | | + + + + | 2021-11-13 00:00 | VENLAFAXINE HCL | [facility] | + + + + | 2021-11-22 00:00 | VENLAFAXINE HCL | [facility] | + + + + | 2021-12-01 00:00 | VENLAFAXINE HCL | [facility] | + + + + | 2022-04-27 00:00 | VENLAFAXINE HCL | [facility] | + + + + | 2022-11-01 00:00 | VENLAFAXINE HCL | [facility] | + + + + | 2022-12-06 00:00 | VENLAFAXINE HCL | [facility] | + + + + | 2022-12-19 00:00 | VENLAFAXINE HCL | [facility] | + + + + | 2022-12-22 00:00 | VENLAFAXINE HCL | [facility] | + + + + | 2021-11-13 00:00 | HYDROCODONE | [facility] | | | BIT/ACETAMINOPHEN | | + + + + | 2021-11-22 00:00 | HYDROCODONE | [facility] | | | BIT/ACETAMINOPHEN | | + + + + | 2021-12-01 00:00 | HYDROCODONE | [facility] | | | BIT/ACETAMINOPHEN | | + + + + | 2022-04-27 00:00 | HYDROCODONE | [facility] | | | BIT/ACETAMINOPHEN | | + + + + | 2022-11-01 00:00 | HY[facility]OCODONE | [facility] | | | BIT/ACETAMINOPHEN | | + + + + | 2022-12-06 00:00 | HYDROCODONE | [facility] | | | BIT/ACETAMINOPHEN | | + + + + | 2022-12-19 00:00 | HYDROCODONE | [facility] | | | BIT/ACETAMINOPHEN | | + + + + | 2022-12-22 00:00 | HYDROCODONE | [facility] | | | BIT/ACETAMINOPHEN | | + + + + | 2021-11-13 00:00 | CLONIDINE HCL | [facility] | + + + + | 2021-11-22 00:00 | CLONIDINE HCL | [facility] | + + + + | 2021-12-01 00:00 | CLONIDINE HCL | [facility] | + + + + | 2022-04-27 00:00 | CLONIDINE HCL | [facility] | + + + + | 2022-11-01 00:00 | CLONIDINE HCL | [facility] | + + + + | 2022-12-06 00:00 | CLONIDINE HCL | [facility] | + + + + | 2022-12-19 00:00 | CLONIDINE HCL | [facility] | + + + + | 2022-12-22 00:00 | CLONIDINE HCL | [facility] | + + + + | 2021-11-13 00:00 | LOPERAMIDE HCL | [facility] | + + + + | 2021-11-22 00:00 | LOPERAMIDE HCL | [facility] | + + + + | 2021-12-01 00:00 | LOPERAMIDE HCL | [facility] | + + + + | 2022-04-27 00:00 | LOPERAMIDE HCL | [facility] | + + + + Problems + + + + | date | description | facility | + + + + | 2021-10-09 00:00 | Rectal hemorrhage | [facility] | + + + + | 2021-10-09 00:00 | Rectal hemorrhage | [facility] | + + + + | 2021-10-09 00:00 | Rectal hemorrhage | [facility] | + + + + | 2021-10-09 00:00 | Metal foreign body in | [facility] | | | abdomen | | + + + + | 2021-10-09 00:00 | Metal foreign body in | [facility] | | | abdomen | | + + + + | 2021-10-09 00:00 | Metal foreign body in | [facility] | | | abdomen | [...] + + | 2021-10-09 18:07 | OTHER LACER AND TIER (CURRENT) | [facility] | | | DRUG THERAPY | | + + + + | 2021-11-01 00:00 | Wound disruption | [facility] | + + + + | 2021-11-01 00:00 | Wound disruption | [facility] | + + + + | 2021-11-01 00:00 | Wound disruption | [facility] | + + + + | 2021-11-20 00:00 | Alcoholic intoxication | [facility] | + + + + | 2021-11-20 00:00 | Alcoholic intoxication | [facility] | + + + + | 2021-11-20 00:00 | Alcoholic intoxication | [facility] | + + + + | 2021-11-24 00:00 | Intentional ibuprofen | [facility] | | | overdose | | + + + + | 2021-11-24 00:00 | Intentional ibuprofen | [facility] | | | overdose | | + + + + | 2021-11-28 00:00 | Intentional overdose | [facility] | + + + + | 2021-11-28 00:00 | Intentional overdose | [facility] | + + + + [...] | Blood in right ear canal | [facility] | + + + + | 2022-04-27 00:00 | Blood in right ear canal | [facility] | + + + + [...] | 2022-10-26 00:00 | Suicidal ideation | [facility] | + + + + | 2022-10-26 00:00 | Suicidal ideation | [facility] | + + + + | 2022-10-26 00:00 | Self-cutting of wrist | [facility] | + + + + | 2022-10-26 00:00 | Self-cutting of wrist | [facility] | + + + + | 2022-10-26 18:29 | SUICIDAL IDEATIONS | [facility] | + + + + | 2022-10-26 18:29 | INTENTIONAL SELF-HARM BY | [facility] | | | UNSP SHARP OBJECT, INIT E | | + + + + | 2022-10-26 18:29 | OTHER LACER AND TIER (CURRENT) | [facility] | | | DRUG [...] + + | 2022-12-05 22:31 | OTHER LACER AND TIER (CURRENT) | [facility] | | | DRUG THERAPY | | + + + + | 2022-12-18 15:43 | RESIDUAL FOREIGN BODY IN | [facility] | | | SOFT TISSUE | | + + + + | 2022-12-18 15:43 | NONSUICIDAL SELF-HARM | [facility] | + + + + | 2022-12-19 00:00 | Cellulitis of right ankle | [facility] | + + + + | 2022-12-19 20:38 | CELLULITIS OF RIGHT LOWER | [facility] | | | LIMB | | + + + + | 2022-12-19 20:38 | LOCALIZED SWELLING, MASS | [facility] | | | AND LUMP, RIGHT LOWER LIMB | | + + + + | 2022-12-19 20:38 | OTHER LACER AND TIER (CURRENT) | [facility] | | | DRUG THERAPY | | + + + + | 2022-12-22 00:00 | Contusion of left lower | [facility] | | | leg | [...] + + | 2022-12-22 18:51 | OTHER LACER AND TIER (CURRENT) | [facility] | | | DRUG THERAPY | | + + + + Procedures + + + + | date | description | facility | + + + + | 2021-10-10 00:00 | EXTIRPATION OF MATTER FROM [facility] | | | TONSILS, OPEN APPROACH | | + + + + | 2021-10-10 00:00 | EXTIRPATION OF MATTER FROM [facility] | | | TONSILS, OPEN APPROACH | | + + + + | 2021-10-10 00:00 | EXTIRPATION OF MATTER FROM | [facility] | | | PERITONEAL CAVITY, OPEN | | | | APPROACH | | + + + + | 2021-10-10 00:00 | EXTIRPATION OF MATTER FROM | [facility] | | | PERITONEAL CAVITY, OPEN | | | | APPROACH | | + + + + | 2021-10-09 00:00 | REMOVE PHARYNX FOREIGN | [facility] | | | BODY | | + + + + | 2021-10-09 00:00 | REMOVE PHARYNX FOREIGN | [facility] | | | BODY | | + + + + | 2021-10-09 00:00 | REMOVE PHARYNX FOREIGN | [facility] | | | BODY | | + + + + | 2021-10-09 00:00 | REMOVE RECTAL OBSTRUCTION | [facility] | + + + + | 2021-10-09 00:00 | REMOVE RECTAL OBSTRUCTION | [facility] | + + + + | 2021-10-09 00:00 | REMOVE RECTAL OBSTRUCTION | [facility] | + + + + | 2021-10-09 00:00 | REMOVE FOREIGN BODY | [facility] | | | ADBOMEN | | + + + + | 2021-10-09 00:00 | REMOVE FOREIGN BODY | [facility] | | | ADBOMEN | | + + + + | 2021-10-09 00:00 | REMOVE FOREIGN BODY | [facility] | | | ADBOMEN | [...] (missing) | | (unavailable | 10:58:07 | [facility] | | | | | [...] 00:00 | Unknown if ever smoked | [facility] | + + + + | 2021-11-22 00:00 | Unknown if ever smoked | [facility] | + + + + | 2021-12-01 00:00 | Unknown if ever smoked | [facility] | + + + + | 2022-04-27 00:00 | Unknown if ever smoked | [facility] | + + + + | 2022-11-01 00:00 | Unknown if ever smoked | [facility] | + + + + | 2022-12-06 00:00 | Unknown if ever smoked | [facility] | + + + + | 2022-12-19 00:00 | Unknown if ever smoked | [facility] | + + + + | 2022-12-22 00:00 | Unknown if ever smoked | [facility] | + + + + [...]
[~2023-01-02 09:19] MED LIST changes: +AMOX TR-K CLV1 EAC1 PO; +CIPRODEX OTIC7.5 ML AD; +ZYRTEC10 M3 PO
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
[2023-01-02] MEDS ORDERED: HYDROCODON-ACE1 EA10 PO (09:30)
[2023-01-02 10:32] VITALS: BP 115/77
== END 2023-01-02 10:41 | disposition home or self-care (01) ==
LOC: ED 09:19
DX: S63.501A Unspecified sprain of right wrist, initial encounter (principal); W05.1XXA Fall from non-moving nonmotorized scooter, initial encounter; Z79.899 Other long term (current) drug therapy
CPT/HCPCS: 73110; 73130

== ENCOUNTER 2023-01-09 18:45 | Emergency (ER) | payer BC, OTHER ==
[~2023-01-09] VITALS: Ht 149.9 cm; Wt 56.8 kg
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
[2023-01-09 20:20] VITALS: BP 123/87
== END 2023-01-09 20:20 | disposition home or self-care (01) ==
LOC: ED 18:45
DX: T18.9XXA Foreign body of alimentary tract, part unspecified, initial encounter (principal); Z79.899 Other long term (current) drug therapy
CPT/HCPCS: 99283

== ENCOUNTER 2023-01-14 19:48 | Emergency (ER) | payer BC, OTHER ==
[~2023-01-14] VITALS: Ht 149.9 cm; Wt 58.1 kg
--- OUTSIDE RECORDS SUMMARY | ~2023-01-14 | XMS | Continuity of Care Document ---
Demographics + + + | Address | [address] | | | [place] [address] | + + + | Preferred Language | Unknown | + + + | Marital Status | | + + + | Anabaptism Affiliation | Unknown | + + + | Race | White | + + + | Ethnic Group | Not or | + + + Author + + + | Author | [place] | + + + | Organization | [place] | + + + | Address | [address] | | | [place] [address] | + + + | Phone | | + + + Care Team Providers + + + + | Care Lead Business Analyst Name | Role | Phone | + [...] | 2022-11-01 00:00 | CETIRIZINE HCL | [facility] | + + + + | 2022-12-06 00:00 | CETIRIZINE HCL | [facility] | + + + + | 2022-12-19 00:00 | CETIRIZINE HCL | [facility] | + + + + | 2022-12-22 00:00 | CETIRIZINE HCL | [facility] | + + + + | 2023-01-02 00:00 | CETIRIZINE HCL | [facility] | + + + + | 2023-01-09 00:00 | CETIRIZINE HCL | [facility] | + + + + | 2021-11-13 00:00 | CETIRIZINE HCL | [facility] | + + + + | 2021-11-22 00:00 | CETIRIZINE HCL | [facility] | + + + + | 2021-12-01 00:00 | CETIRIZINE HCL | [facility] | + + + + | 2022-04-27 00:00 | CETIRIZINE HCL | [facility] | + + + + | 2022-11-01 00:00 | CETIRIZINE HCL | [facility] | + + + + | 2022-12-06 00:00 | CETIRIZINE HCL | [facility] | + + + + | 2022-12-19 00:00 | CETIRIZINE HCL | [facility] | + + + + | 2022-12-22 00:00 | CETIRIZINE HCL | [facility] | + + + + | 2023-01-02 00:00 | CETIRIZINE HCL | [facility] | + + + + | 2023-01-09 00:00 | CETIRIZINE HCL | [facility] | + + + + | 2021-11-13 00:00 | DIPHENHYDRAMINE HCL | [facility] | + + + + | 2021-11-22 00:00 | DIPHENHYDRAMINE HCL | [facility] | + + + + | 2021-12-01 00:00 | DIPHENHYDRAMINE HCL | [facility] | + + + + | 2022-04-27 00:00 | DIPHENHYDRAMINE HCL | [facility] | + + + + | 2022-11-01 00:00 | DIPHENHYDRAMINE HCL | [facility] | + + + + | 2022-12-06 00:00 | DIPHENHYDRAMINE HCL | [facility] | + + + + | 2022-12-19 00:00 | DIPHENHYDRAMINE HCL | [facility] | + + + + | 2022-12-22 00:00 | DIPHENHYDRAMINE HCL | [facility] | + + + + | 2023-01-02 00:00 | DIPHENHYDRAMINE HCL | [facility] | + + + + | 2023-01-09 00:00 | DIPHENHYDRAMINE HCL | [facility] | + + + + | 2021-11-13 00:00 | WHEAT DEXTRIN | [facility] | + + + + | 2021-11-22 00:00 | WHEAT DEXTRIN | [facility] | + + + + | 2021-12-01 00:00 | WHEAT DEXTRIN | [facility] | + + + + | 2022-04-27 00:00 | WHEAT DEXTRIN | [facility] | + + + + | 2022-11-01 00:00 | WHEAT DEXTRIN | [facility] | + + + + | 2022-12-06 00:00 | WHEAT DEXTRIN | [facility] | + + + + | 2022-12-19 00:00 | WHEAT DEXTRIN | [facility] | + + + + | 2022-12-22 00:00 | WHEAT DEXTRIN | [facility] | + + + + | 2023-01-02 00:00 | WHEAT DEXTRIN | [facility] | + + + + | 2023-01-09 00:00 | WHEAT DEXTRIN | [facility] | + + + + | 2021-11-13 00:00 | DOCUSATE CALCIUM | [facility] | + + + + | 2021-11-22 00:00 | DOCUSATE CALCIUM | [facility] | + + + + | 2021-12-01 00:00 | DOCUSATE CALCIUM | [facility] | + + + + | 2022-04-27 00:00 | DOCUSATE CALCIUM | [facility] | + + + + | 2022-11-01 00:00 | DOCUSATE CALCIUM | [facility] | + + + + | 2022-12-06 00:00 | DOCUSATE CALCIUM | [facility] | + + + + | 2022-12-19 00:00 | DOCUSATE CALCIUM | [facility] | + + + + | 2022-12-22 00:00 | DOCUSATE CALCIUM | [facility] | + + + + | 2023-01-02 00:00 | DOCUSATE CALCIUM | [facility] | + + + + | 2023-01-09 00:00 | DOCUSATE CALCIUM | [facility] | + + + + | 2021-11-13 00:00 | FLUTICASONE PROPIONATE 50 | [facility] | | | MCG | | + + + + | 2021-11-22 00:00 | FLUTICASONE PROPIONATE 50 | [facility] | | | MCG | | + + + + | 2021-12-01 00:00 | FLUTICASONE PROPIONATE 50 | [facility] | | | MCG | | + + + + | 2022-04-27 00:00 | FLUTICASONE PROPIONATE 50 | [facility] | | | MCG | | + + + + | 2021-11-01 00:00 | CEPHALEXIN | [facility] | + + + + | 2021-11-01 00:00 | CEPHALEXIN | [facility] | + + + + | 2021-11-01 00:00 | CEPHALEXIN | [facility] | + + + + | 2021-11-13 00:00 | LITHIUM CARBONATE | [facility] | + + + + | 2021-11-22 00:00 | LITHIUM CARBONATE | [facility] | + + + + | 2021-12-01 00:00 | LITHIUM CARBONATE | [facility] | + + + + | 2022-04-27 00:00 | LITHIUM CARBONATE | [facility] | + + + + | 2022-11-01 00:00 | LITHIUM CARBONATE | [facility] | + + + + | 2022-12-06 00:00 | LITHIUM CARBONATE | [facility] | + + + + | 2022-12-19 00:00 | LITHIUM CARBONATE | [facility] | + + + + | 2022-12-22 00:00 | LITHIUM CARBONATE | [facility] | + + + + | 2023-01-02 00:00 | LITHIUM CARBONATE | [facility] | + + + + | 2023-01-09 00:00 | LITHIUM CARBONATE | [facility] | + + + + | 2021-11-13 00:00 | MELATONIN | [facility] | + + + + | 2021-11-22 00:00 | MELATONIN | [facility] | + + + + | 2021-12-01 00:00 | MELATONIN | [facility] | + + + + | 2022-04-27 00:00 | MELATONIN | [facility] | + + + + | 2022-11-01 00:00 | MELATONIN | [facility] | + + + + | 2022-12-06 00:00 | MELATONIN | [facility] | + + + + | 2022-12-19 00:00 | MELATONIN | [facility] | + + + + | 2022-12-22 00:00 | MELATONIN | [facility] | + + + + | 2023-01-02 00:00 | MELATONIN | [facility] | + + + + | 2023-01-09 00:00 | MELATONIN | [facility] | + + + + | 2021-11-13 00:00 | OLANZAPINE | [facility] | + + + + | 2021-11-22 00:00 | OLANZAPINE | [facility] | + + + + | 2021-12-01 00:00 | OLANZAPINE | [facility] | + + + + | 2022-04-27 00:00 | OLANZAPINE | [facility] | + + + + | 2022-11-01 00:00 | OLANZAPINE | [facility] | + + + + | 2022-12-06 00:00 | OLANZAPINE | [facility] | + + + + | 2022-12-19 00:00 | OLANZAPINE | [facility] | + + + + | 2022-12-22 00:00 | OLANZAPINE | [facility] | + + + + | 2023-01-02 00:00 | OLANZAPINE | [facility] | + + + + | 2023-01-09 00:00 | OLANZAPINE | [facility] | + + + + | 2021-11-13 00:00 | OLANZAPINE | [facility] | + + + + | 2021-11-22 00:00 | OLANZAPINE | [facility] | + + + + | 2021-12-01 00:00 | OLANZAPINE | [facility] | + + + + | 2022-04-27 00:00 | OLANZAPINE | [facility] | + + + + | 2021-11-13 00:00 | PRAZOSIN HCL | [facility] | + + + + | 2021-11-22 00:00 | PRAZOSIN HCL | [facility] | + + + + | 2021-12-01 00:00 | PRAZOSIN HCL | [facility] | + + + + | 2022-04-27 00:00 | PRAZOSIN HCL | [facility] | + + + + | 2022-11-01 00:00 | PRAZOSIN HCL | [facility] | + + + + | 2022-12-06 00:00 | PRAZOSIN HCL | [facility] | + + + + | 2022-12-19 00:00 | PRAZOSIN HCL | [facility] | + + + + | 2022-12-22 00:00 | PRAZOSIN HCL | [facility] | + + + + | 2023-01-02 00:00 | PRAZOSIN HCL | [facility] | + + + + | 2023-01-09 00:00 | PRAZOSIN HCL | [facility] | + + + + | 2021-11-13 00:00 | ACETAMINOPHEN | [facility] | + + + + | 2021-11-22 00:00 | ACETAMINOPHEN | [facility] | + + + + | 2021-12-01 00:00 | ACETAMINOPHEN | [facility] | + + + + | 2022-04-27 00:00 | ACETAMINOPHEN | [facility] | + + + + | 2022-11-01 00:00 | ACETAMINOPHEN | [facility] | + + + + | 2022-12-06 00:00 | ACETAMINOPHEN | [facility] | + + + + | 2022-12-19 00:00 | ACETAMINOPHEN | [facility] | + + + + | 2022-12-22 00:00 | ACETAMINOPHEN | [facility] | + + + + | 2023-01-02 00:00 | ACETAMINOPHEN | [facility] | + + + + | 2023-01-09 00:00 | ACETAMINOPHEN | [facility] | + + + + | 2022-04-27 00:00 | CIPROFLOXACIN HCL/DEXAMETH | [facility] | | | | | + + + + | 2022-12-19 00:00 | AMOXICILLIN/POTASSIUM CLAV | [facility] | | | | | + + + + | 2022-12-19 00:00 | AMOXICILLIN/POTASSIUM CLAV | [facility] | | | | | + + + + | 2021-11-13 00:00 | VENLAFAXINE HCL | [facility] | + + + + | 2021-11-22 00:00 | VENLAFAXINE HCL | [facility] | + + + + | 2021-12-01 00:00 | VENLAFAXINE HCL | [facility] | + + + + | 2022-04-27 00:00 | VENLAFAXINE HCL | [facility] | + + + + | 2022-11-01 00:00 | VENLAFAXINE HCL | [facility] | + + + + | 2022-12-06 00:00 | VENLAFAXINE HCL | [facility] | + + + + | 2022-12-19 00:00 | VENLAFAXINE HCL | [facility] | + + + + | 2022-12-22 00:00 | VENLAFAXINE HCL | [facility] | + + + + | 2023-01-02 00:00 | VENLAFAXINE HCL | [facility] | + + + + | 2021-11-13 00:00 | HYDROCODONE | [facility] | | | BIT/ACETAMINOPHEN | | + + + + | 2021-11-22 00:00 | HYDROCODONE | [facility] | | | BIT/ACETAMINOPHEN | | + + + + | 2021-12-01 00:00 | HYDROCODONE | [facility] | | | BIT/ACETAMINOPHEN | | + + + + | 2022-04-27 00:00 | HYDROCODONE | [facility] | | | BIT/ACETAMINOPHEN | | + + + + | 2022-11-01 00:00 | HYDROCODONE | [facility] | | | BIT/ACETAMINOPHEN | | + + + + | 2022-12-06 00:00 | HYDROCODONE | [facility] | | | BIT/ACETAMINOPHEN | | + + + + | 2022-12-19 00:00 | HYDROCODONE | [facility] | | | BIT/ACETAMINOPHEN | | + + + + | 2022-12-22 00:00 | HYDROCODONE | [facility] | | | BIT/ACETAMINOPHEN | | + + + + | 2023-01-02 00:00 | HYDROCODONE | [facility] | | | BIT/ACETAMINOPHEN | | + + + + | 2023-01-09 00:00 | HYDROCODONE | [facility] | | | BIT/ACETAMINOPHEN | | + + + + | 2021-11-13 00:00 | CLONIDINE HCL | [facility] | + + + + | 2021-11-22 00:00 | CLONIDINE HCL | [facility] | + + + + | 2021-12-01 00:00 | CLONIDINE HCL | [facility] | + + + + | 2022-04-27 00:00 | CLONIDINE HCL | [facility] | + + + + | 2022-11-01 00:00 | CLONIDINE HCL | [facility] | + + + + | 2022-12-06 00:00 | CLONIDINE HCL | [facility] | + + + + | 2022-12-19 00:00 | CLONIDINE HCL | [facility] | + + + + | 2022-12-22 00:00 | CLONIDINE HCL | [facility] | + + + + | 2023-01-02 00:00 | CLONIDINE HCL | [facility] | + + + + | 2023-01-09 00:00 | CLONIDINE HCL | [facility] | + + + + | 2021-11-13 00:00 | LOPERAMIDE HCL | [facility] | + + + + | 2021-11-22 00:00 | LOPERAMIDE HCL | [facility] | + + + + | 2021-12-01 00:00 | LOPERAMIDE HCL | [facility] | + + + + | 2022-04-27 00:00 | LOPERAMIDE HCL | [facility] | + + + + Problems + + + + | date | description | facility | + + + + | 2021-10-09 00:00 | Rectal hemorrhage | [facility] | + + + + | 2021-10-09 00:00 | Rectal hemorrhage | [facility] | + + + + | 2021-10-09 00:00 | Rectal hemorrhage | [facility] | + + + + | 2021-10-09 00:00 | Metal foreign body in | [facility] | | | abdomen | | + + + + | 2021-10-09 00:00 | Metal foreign body in | [facility] | | | abdomen | | + + + + | 2021-10-09 00:00 | Metal foreign body in | [facility] | | | abdomen | | + [...] + + | 2021-10-09 18:07 | [facility] | [facility] | | | DRUG THERAPY | | + + + + | 2021-11-01 00:00 | Wound disruption | [facility] | + + + + | 2021-11-01 00:00 | Wound disruption | [facility] | + + + + | 2021-11-01 00:00 | Wound disruption | [facility] | + + + + | 2021-11-20 00:00 | Alcoholic intoxication | [facility] | + + + + | 2021-11-20 00:00 | Alcoholic intoxication | [facility] | + + + + | 2021-11-20 00:00 | Alcoholic intoxication | [facility] | + + + + | 2021-11-24 00:00 | Intentional ibuprofen | [facility] | | | overdose | | + + + + | 2021-11-24 00:00 | Intentional ibuprofen | [facility] | | | overdose | | + + + + | 2021-11-28 00:00 | Intentional overdose | [facility] | + + + + | 2021-11-28 00:00 | Intentional overdose | [facility] | + + + + | 2022-02-23 [...] | Blood in right ear canal | [facility] | + + + + | 2022-04-27 00:00 | Blood in right ear canal | [facility] | + + + + | 2022-05-12 [...] | 2022-10-26 00:00 | Suicidal ideation | [facility] | + + + + | 2022-10-26 00:00 | Suicidal ideation | [facility] | + + + + | 2022-10-26 00:00 | Self-cutting of wrist | [facility] | + + + + | 2022-10-26 00:00 | Self-cutting of wrist | [facility] | + + + + | 2022-10-26 18:29 | SUICIDAL IDEATIONS | [facility] | + + + + | 2022-10-26 18:29 | INTENTIONAL SELF-HARM BY | [facility] | | | UNSP SHARP OBJECT, INIT E | | + + + + | 2022-10-26 18:29 | [facility] | [facility] | | | DRUG [...] + + | 2022-12-05 22:31 | [facility] | [facility] | | | DRUG THERAPY | | + + + + | 2022-12-18 15:43 | RESIDUAL FOREIGN BODY IN | [facility] | | | SOFT TISSUE | | + + + + | 2022-12-18 15:43 | NONSUICIDAL SELF-HARM | [facility] | + + + + | 2022-12-19 00:00 | Cellulitis of right ankle | [facility] | + + + + | 2022-12-19 00:00 | Cellulitis of right ankle | [facility] | + + + + | 2022-12-19 20:38 | CELLULITIS OF RIGHT LOWER | [facility] | | | LIMB | | + + + + | 2022-12-19 20:38 | LOCALIZED SWELLING, MASS | [facility] | | | AND LUMP, RIGHT LOWER LIMB | | + + + + | 2022-12-19 20:38 | OTHER MEDIA INTERN (CURRENT) | [facility] | | | DRUG THERAPY | | + + + + | 2022-12-22 00:00 | Contusion of left lower | [facility] | | | leg | | + + + + | 2022-12-22 00:00 | Contusion of left lower | [facility] | | | leg | | + [...] + + | 2022-12-22 18:51 | [facility] | [facility] | | | DRUG THERAPY | | + + + + | 2023-01-02 00:00 | Sprain of wrist | [facility] | + + + + | 2023-01-02 00:00 | Sprain of wrist | [facility] | + + + + | 2023-01-02 09:20 | PAIN IN RIGHT WRIST | [facility] | + + + + | 2023-01-02 09:20 | UNSPECIFIED SPRAIN OF | [facility] | | | RIGHT WRIST, INITIAL | | | | ENCOUNT | | + + + + | 2023-01-02 09:20 | FALL FROM NON-MOVING | [facility] | | | NONMOTORIZED SCOOTER, | | | | INITIAL | | + + + + | 2023-01-02 09:20 | [facility] | [facility] | | | DRUG THERAPY | | + + + + | 2023-01-04 18:18 | OTHER SPECIFIED SOFT | [facility] | | | TISSUE DISORDERS | | + + + + | 2023-01-04 18:18 | FEVER, UNSPECIFIED | [facility] | + + + + | 2023-01-09 00:00 | History of swallowed | [facility] | | | foreign body | | + + + + | 2023-01-09 18:46 | FOREIGN BODY OF ALIMENTARY | [facility] | | | TRACT, PART UNSP, INIT | | | | ENCNTR | | + + + + | 2023-01-09 18:46 | OTHER MEDIA INTERN (CURRENT) | [facility] | | | DRUG THERAPY | | + + + + Procedures + + + + | date | description | facility | + + + + | 2021-10-10 00:00 | EXTIRPATION OF MATTER FROM | [facility] | | | TONSILS, OPEN APPROACH | | + + + + | 2021-10-10 00:00 | EXTIRPATION OF MATTER FROM | [facility] | | | TONSILS, OPEN APPROACH | | + + + + | 2021-10-10 00:00 | EXTIRPATION OF MATTER FROM | [facility] | | | PERITONEAL CAVITY, OPEN | | | | APPROACH | | + + + + | 2021-10-10 00:00 | EXTIRPATION OF MATTER FROM | [facility] | | | PERITONEAL CAVITY, OPEN | | | | APPROACH | | + + + + | 2021-10-09 00:00 | REMOVE PHARYNX FOREIGN | [facility] | | | BODY | | + + + + | 2021-10-09 00:00 | REMOVE PHARYNX FOREIGN | [facility] | | | BODY | | + + + + | 2021-10-09 00:00 | REMOVE PHARYNX FOREIGN | [facility] | | | BODY | | + + + + | 2021-10-09 00:00 | REMOVE RECTAL OBSTRUCTION | [facility] | + + + + | 2021-10-09 00:00 | REMOVE RECTAL OBSTRUCTION | [facility] | + + + + | 2021-10-09 00:00 | REMOVE RECTAL OBSTRUCTION | [facility] | + + + + | 2021-10-09 00:00 | REMOVE FOREIGN BODY | [facility] | | | ADBOMEN | | + + + + | 2021-10-09 00:00 | REMOVE FOREIGN BODY | [facility] | | | ADBOMEN | | + + + + | 2021-10-09 00:00 | REMOVE FOREIGN BODY | [facility] | | | ADBOMEN | | + [...] (missing) | | (unavailable | 19:40 | [facility] | | | | | ) | [...] mg/dL | (missing) | | (unavailable | 19::07 [...] (missing) | (missing) | | (unavailable | :28:07 | [facility] | | | | | [...] 277 | + + + + + +--------+ + + | | 2022-12-05 | [facility] | 16.1 | (missing) | (missing) | | (unavailable | 23:00:07 | [facility] | | | | + + + +--------+ + + + + | Result panel 278 | + + + + + +-------+ + + | | 2022-12-05 | [facility] | 424 | (missing) | (missing) | | (unavailable | 23:00:07 | [facility] | | | | + + + +-------+ + + + + | Result panel 279 | + + + + + +--------+ + + | | 2022-12-05 | [facility] | 65.5 | (missing) | (missing) | | (unavailable | ::07 | [facility] | | | | + + + +--------+ + + + + | Result panel 280 | + + + + + +--------+ + + | | 2022-12-05 | [facility] | 26.6 | (missing) | (missing) | | (unavailable | 23::07 | [facility] | | | | + + + +--------+ + + + + | Result panel 281 | + + + + + +-------+ + + | | 2022-12-05 | [facility] | 7.7 | (missing) | (missing) | | (unavailable | :: | [facility] | | | | + + + +-------+ + + + + | Result panel 282 | + + + + + +-------+ + + | | 2022-12-05 | [facility] | 0.0 | (missing) | (missing) | | (unavailable | 23::07 | [facility] | | | | + + + +-------+ + + + + | Result panel 283 | + + + + + +-------+ + + | | 2022-12-05 | [facility] | 0.2 | (missing) | (missing) | | (unavailable | 23::07 | [facility] | | | | + + + +-------+ + + + + | Result panel 284 | + + + + + +-------+---------+ + | | 2022-12-05 | [facility] | 101 | mg/dL | (missing) | | (unavailable | 23::07 | [facility] | | | | + + + +-------+---------+ + + + | Result panel 285 | + + + + + +------+---------+ + | | 2022-12-05 | [facility] | 12 | mg/dL | (missing) | | (unavailable | 23:00:07 | [facility] | | | | + + + +------+---------+ + + + | Result panel 286 | + + + + + +--------+---------+ + | | 2022-12-05 | [facility] | 0.94 | mg/dL | (missing) | | (unavailable | 23:00:07 | [facility] | | | | + + + +--------+---------+ + + + | Result panel 287 | + + + + + +------+ + + | | 2022-12-05 | [facility] | 90 | (missing) | (missing) | | (unavailable | 23:00:07 | [facility] | | | | + + + +------+ + + + + | Result panel 288 | + + + + + +---------+ + + | | 2022-12-05 | [facility] | 12.76 | (missing) | (missing) | | (unavailable | ::07 | [facility] | | | | + + + +---------+ + + + + | Result panel 289 | + + + + + +-------+ + + | | 2022-12-05 | [facility] | 131 | (missing) | (missing) | | (unavailable | 23:00:07 | [facility] | | | | + + + +-------+ + + + + | Result panel 290 | + + + + + +-------+ + + | | 2022-12-05 | [facility] | 3.6 | (missing) | (missing) | | (unavailable | 23:00:07 | [facility] | | | | + + + +-------+ + + + + | Result panel 291 | + + + + + +------+ + + | | 2022-12-05 | [facility] | 98 | (missing) | (missing) | | (unavailable | 23:00:07 | [facility] | | | | + + + +------+ + + + + | Result panel 292 | + + + + + +------+ [...] 294 | + + + + + +-------+---------+ + | | 2022-12-05 | [facility] | 9.5 | mg/dL | (missing) | | (unavailable | 23:00:07 | [facility] | | | | + + + +-------+---------+ + + + | Result panel 295 [...] 296 | + + + + + +-------+ + + | | 2022-12-05 | [facility] | 3.8 | (missing) | (missing) | | (unavailable | 23:00:07 | [facility] | | | | + + + +-------+ + + + + | Result panel 297 | + + + + + +-------+ + + | | 2022-12-05 | [facility] | 4.4 | (missing) | (missing) | | (unavailable | 23:00:07 | [facility] | | | | + + + +-------+ + + + + | Result panel 298 | + + + + + +--------+ [...] 300 | + + + + + +------+ + + | | 2022-12-05 | [facility] | 17 | (missing) | (missing) | | (unavailable | 23::07 | [facility] | | | | + + + +------+ + + + + | Result panel 301 | + + + + + +------+ + + | | 2022-12-05 | [facility] | 30 | (missing) | (missing) | | (unavailable | 23:00:07 | [facility] | | | | + + + +------+ + + + + | Result panel 302 | + + + + + +------+ + + | | 2022-12-05 | [facility] | 82 | (missing) | (missing) | | (unavailable | 23:00:07 | [facility] | | | | + + + +------+ + + + + | Result panel 303 | + + + + + +---------+ + + | | 2022-12-05 | [facility] | 2.406 | (missing) | (missing) | | (unavailable | 23:00:07 | [facility] | | | | + + + +---------+ + + + + | Result panel 304 | + + + + + + + + + | | 2022-12-05 | [facility] | NEGATIVE | (missing) | (missing) | | (unavailable | 23:00:07 | [facility] | | | | + + + + + + + + + | Result panel 305 | + + + + + +-----+ + + | | 2022-12-05 | [facility] | 0 | (missing) | (missing) | | (unavailable | 23::07 | [facility] | | | | + + + +-----+ + + + + | Result panel 306 | + + + + + +------+ + + | | 2022-12-05 | [facility] | // | (missing) | (missing) | | (unavailable | 23:00:07 | [facility] | | | | + + + +------+ + + + + | Result panel 307 | + + + + + +-------+---------+ + | | 2022-12-05 | [facility] | 1.3 | mg/dL | (missing) | | (unavailable | ::07 | [facility] | | | | + + + +-------+---------+ + + + | Result panel 308 [...] 309 | + + + + + +-------+ + + | | 2022-12-05 | [facility] | 0.9 | (missing) | (missing) | | (unavailable | 23:00:07 | [facility] | | | | + + + +-------+ + + + + | Result panel 310 | + + + + + +------+ + + | | 2022-12-05 | [facility] | // | (missing) | (missing) | | (unavailable | 23:00:07 | [facility] | | | | + + + +------+ + + + + | Result panel 311 | + + + + + +------+ + + | | 2022-12-05 | [facility] | <3 | (missing) | (missing) | | (unavailable | 23:00:07 | [facility] | | | | + + + +------+ + + + + | Result panel 312 [...] 313 | + + + + + +--------+ + + | | 2022-12-05 | [facility] | 4.10 | (missing) | (missing) | | (unavailable | 23:00:07 | [facility] | | | | + + + +--------+ + + + + | Result panel 314 | + + + + + +--------+ [...] 316 | + + + + + +--------+ + + | | 2022-12-05 | [facility] | 80.2 | (missing) | (missing) | | (unavailable | ::07 | [facility] | | | | + + + +--------+ + + + + | Result panel 317 | + + + + + +--------+ + + | | 2022-12-05 | [facility] | 25.8 | (missing) | (missing) | | (unavailable | 23:00:07 | [facility] | | | | + + + +--------+ + + + + | Result panel 318 | + + + + + +--------+ + + | | 2022-12-05 | [facility] | 32.2 | (missing) | (missing) | | (unavailable | ::07 | [facility] | | | | + + + +--------+ + + + + | Result panel 319 | + + + + + +--------+ + + | | 2022-12-05 | [facility] | 16.1 | (missing) | (missing) | | (unavailable | 23:00:07 | [facility] | | | | + + + +--------+ + + + + | Result panel 320 | + + + + + +-------+ + + | | 2022-12-05 | [facility] | 424 | (missing) | (missing) | | (unavailable | 23:00:07 | [facility] | | | | + + + +-------+ + + + + | Result panel 321 | + + + + + +--------+ + + | | 2022-12-05 | [facility] | 65.5 | (missing) | (missing) | | (unavailable | 23:00:07 | [facility] | | | | + + + +--------+ + + + + | Result panel 322 | + + + + + +--------+ + + | | 2022-12-05 | [facility] | 26.6 | (missing) | (missing) | | (unavailable | ::07 | [facility] | | | | + + + +--------+ + + + + | Result panel 323 | + + + + + +-------+ + + | | 2022-12-05 | [facility] | 7.7 | (missing) | (missing) | | (unavailable | 23::07 | [facility] | | | | + + + +-------+ + + + + | Result panel 324 | + + + + + +-------+ + + | | 2022-12-05 | [facility] | 0.0 | (missing) | (missing) | | (unavailable | ::07 | [facility] | | | | + + + +-------+ + + + + | Result panel 325 | + + + + + +-------+ + + | | 2022-12-05 | [facility] | 0.2 | (missing) | (missing) | | (unavailable | 23:00:07 | [facility] | | | | + + + +-------+ + + + + | Result panel 326 | + + + + + +-------+---------+ + | | 2022-12-05 | [facility] | 101 | mg/dL | (missing) | | (unavailable | 23::07 | [facility] | | | | + + + +-------+---------+ + + + | Result panel 327 | + + + + + +------+---------+ + | | 2022-12-05 | [facility] | 12 | mg/dL | (missing) | | (unavailable | 23:00:07 | [facility] | | | | + + + +------+---------+ + + + | Result panel 328 | + + + + + +--------+---------+ + | | 2022-12-05 | [facility] | 0.94 | mg/dL | (missing) | | (unavailable | 23:00:07 | [facility] | | | | + + + +--------+---------+ + + + | Result panel 329 | + + + + + +------+ + + | | 2022-12-05 | [facility] | 90 | (missing) | (missing) | | (unavailable | 23:00:07 | [facility] | | | | + + + +------+ + + + + | Result panel 330 | + + + + + +---------+ + + | | 2022-12-05 | [facility] | 12.76 | (missing) | (missing) | | (unavailable | 23::07 | [facility] | | | | + + + +---------+ + + + + | Result panel 331 | + + + + + +-------+ + + | | 2022-12-05 | [facility] | 131 | (missing) | (missing) | | (unavailable | ::07 | [facility] | | | | + + + +-------+ + + + + | Result panel 332 | + + + + + +-------+ + + | | 2022-12-05 | [facility] | 3.6 | (missing) | (missing) | | (unavailable | 23:00:07 | [facility] | | | | + + + +-------+ + + + + | Result panel 333 | + + + + + +------+ + + | | 2022-12-05 | [facility] | 98 | (missing) | (missing) | | (unavailable | 23:00:07 | [facility] | | | + + + +------+ + + + + | Result panel 334 | + + + + + +------+ [...] 336 | + + + + + +-------+---------+ + | | 2022-12-05 | [facility] | 9.5 | mg/dL | (missing) | | (unavailable | 23:00:07 | [facility] | | | | + + + +-------+---------+ + + + | Result panel 337 [...] 338 | + + + + + +-------+ + + | | 2022-12-05 | [facility] | 3.8 | (missing) | (missing) | | (unavailable | 23:00:07 | [facility] | | | | + + + +-------+ + + + + | Result panel 339 | + + + + + +-------+ + + | | 2022-12-05 | [facility] | 4.4 | (missing) | (missing) | | (unavailable | 23:00:07 | [facility] | | | | + + + +-------+ + + + + | Result panel 340 | + + + + + +--------+ [...] 342 | + + + + + +------+ + + | | 2022-12-05 | [facility] | 17 | (missing) | (missing) | | (unavailable | :: | [facility] | | | | + + + +------+ + + + + | Result panel 343 | + + + + + +------+ + + | | 2022-12-05 | [facility] | 30 | (missing) | (missing) | | (unavailable | 23::07 | [facility] | | | | + + + +------+ + + + + | Result panel 344 | + + + + + +------+ + + | | 2022-12-05 | [facility] | 82 | (missing) | (missing) | | (unavailable | 23:00:07 | [facility] | | | | + + + +------+ + + + + | Result panel 345 | + + + + + +---------+ + + | | 2022-12-05 | [facility] | 2.406 | (missing) | (missing) | | (unavailable | 23:00:07 | [facility] | | | | + + + +---------+ + + + + | Result panel 346 | + + + + + + + + + | | 2022-12-05 | [facility] | NEGATIVE | (missing) | (missing) | | (unavailable | 23:00:07 | [facility] | | | | + + + + + + + + + | Result panel 347 | + + + + + +-----+ + + | | 2022-12-05 | [facility] | 0 | (missing) | (missing) | | (unavailable | 23:00:07 | [facility] | | | | + + + +-----+ + + + + | Result panel 348 | + + + + + +------+ + + | | 2022-12-05 | [facility] | // | (missing) | (missing) | | (unavailable | 23:00:07 | [facility] | | | | + + + +------+ + + + + | Result panel 349 | + + + + + +-------+---------+ + | | 2022-12-05 | [facility] | 1.3 | mg/dL | (missing) | | (unavailable | 23:00:07 | [facility] | | | | + + + +-------+---------+ + + + | Result panel 350 [...] 351 | + + + + + +-------+ + + | | 2022-12-05 | [facility] | 0.9 | (missing) | (missing) | | (unavailable | 23:00:07 | [facility] | | | | + + + +-------+ + + + + | Result panel 352 | + + + + + +------+ + + | | 2022-12-05 | [facility] | // | (missing) | (missing) | | (unavailable | 23:00:07 | [facility] | | | | + + + +------+ + + + + | Result panel 353 | + + + + + +------+ + + | | 2022-12-05 | [facility] | <3 | (missing) | (missing) | | (unavailable | 23:00:07 | [facility] | | | | + + + +------+ + + + + | Result panel 354 [...] 355 | + + + + + +--------+ + + | | 2022-12-05 | [facility] | 4.10 | (missing) | (missing) | | (unavailable | 23:00:07 | [facility] | | | | + + + +--------+ + + + + | Result panel 356 | + + + + + +--------+ [...] 358 | + + + + + +--------+ + + | | 2022-12-05 | [facility] | 80.2 | (missing) | (missing) | | (unavailable | 23:00:07 | [facility] | | | | + + + +--------+ + + + + | Result panel 359 | + + + + + +--------+ + + | | 2022-12-05 | [facility] | 25.8 | (missing) | (missing) | | (unavailable | : | [facility] | | | | + + + +--------+ + + + + | Result panel 360 | + + + + + +--------+ + + | | 2022-12-05 | [facility] | 32.2 | (missing) | (missing) | | (unavailable | 23::07 | [facility] | | | | + + + +--------+ + + + + | Result panel 361 | + + + + + +--------+ + + | | 2022-12-05 | [facility] | 16.1 | (missing) | (missing) | | (unavailable | ::07 | [facility] | | | | + + + +--------+ + + + + | Result panel 362 | + + + + + +-------+ + + | | 2022-12-05 | [facility] | 424 | (missing) | (missing) | | (unavailable | ::07 | [facility] | | | | + + + +-------+ + + + + | Result panel 363 | + + + + + +--------+ + + | | 2022-12-05 | [facility] | 65.5 | (missing) | (missing) | | (unavailable | 23:00:07 | [facility] | | | | + + + +--------+ + + + + | Result panel 364 | + + + + + +--------+ + + | | 2022-12-05 | [facility] | 26.6 | (missing) | (missing) | | (unavailable | 23:00:07 | [facility] | | | | + + + +--------+ + + + + | Result panel 365 | + + + + + +-------+ + + | | 2022-12-05 | [facility] | 7.7 | (missing) | (missing) | | (unavailable | ::07 | [facility] | | | | + + + +-------+ + + + + | Result panel 366 | + + + + + +-------+ + + | | 2022-12-05 | [facility] | 0.0 | (missing) | (missing) | | (unavailable | ::07 | [facility] | | | | + + + +-------+ + + + + | Result panel 367 | + + + + + +-------+ + + | | 2022-12-05 | [facility] | 0.2 | (missing) | (missing) | | (unavailable | ::07 | [facility] | | | | + + + +-------+ + + + + | Result panel 368 | + + + + + +-------+---------+ + | | 2022-12-05 | [facility] | 101 | mg/dL | (missing) | | (unavailable | ::07 | [facility] | | | | + + + +-------+---------+ + + + | Result panel 369 | + + + + + +------+---------+ + | | 2022-12-05 | [facility] | 12 | mg/dL | (missing) | | (unavailable | 23:00:07 | [facility] | | | | + + + +------+---------+ + + + | Result panel 370 | + + + + + +--------+---------+ + | | 2022-12-05 | [facility] | 0.94 | mg/dL | (missing) | | (unavailable | 23:00:07 | [facility] | | | | + + + +--------+---------+ + + + | Result panel 371 | + + + + + +------+ + + | | 2022-12-05 | [facility] | 90 | (missing) | (missing) | | (unavailable | 23:00:07 | [facility] | | | | + + + +------+ + + + + | Result panel 372 | + + + + + +---------+ + + | | 2022-12-05 | [facility] | 12.76 | (missing) | (missing) | | (unavailable | 23:00:07 | [facility] | | | | + + + +---------+ + + + + | Result panel 373 | + + + + + +-------+ + + | | 2022-12-05 | [facility] | 131 | (missing) | (missing) | | (unavailable | 23::07 | [facility] | | | | + + + +-------+ + + + + | Result panel 374 | + + + + + +-------+ + + | | 2022-12-05 | [facility] | 3.6 | (missing) | (missing) | | (unavailable | :: | [facility] | | | | + + + +-------+ + + + + | Result panel 375 | + + + + + +------+ + + | | 2022-12-05 | [facility] | 98 | (missing) | (missing) | | (unavailable | ::07 | [facility] | | | | + + + +------+ + + + + | Result panel 376 | + + + + + +------+ [...] 378 | + + + + + +-------+---------+ + | | 2022-12-05 | [facility] | 9.5 | mg/dL | (missing) | | (unavailable | 23:00:07 | [facility] | | | | + + + +-------+---------+ + + + | Result panel 379 [...] 380 | + + + + + +-------+ + + | | 2022-12-05 | [facility] | 3.8 | (missing) | (missing) | | (unavailable | 23:00:07 | [facility] | | | | + + + +-------+ + + + + | Result panel 381 | + + + + + +-------+ + + | | 2022-12-05 | [facility] | 4.4 | (missing) | (missing) | | (unavailable | 23:00:07 | [facility] | | | | + + + +-------+ + + + + | Result panel 382 | + + + + + +--------+ [...] 384 | + + + + + +------+ + + | | 2022-12-05 | [facility] | 17 | (missing) | (missing) | | (unavailable | 23:00:07 | [facility] | | | | + + + +------+ + + + + | Result panel 385 | + + + + + +------+ + + | | 2022-12-05 | [facility] | 30 | (missing) | (missing) | | (unavailable | 23::07 | [facility] | | | | + + + +------+ + + + + | Result panel 386 | + + + + + +------+ + + | | 2022-12-05 | [facility] | 82 | (missing) | (missing) | | (unavailable | 23:00:07 | [facility] | | | | + + + +------+ + + + + | Result panel 387 | + + + + + +---------+ + + | | 2022-12-05 | [facility] | 2.406 | (missing) | (missing) | | (unavailable | 23:00:07 | [facility] | | | | + + + +---------+ + + + + | Result panel 388 | + + + + + + + + + | | 2022-12-05 | [facility] | NEGATIVE | (missing) | (missing) | | (unavailable | 23:00:07 | [facility] | | | | + + + + + + + + + | Result panel 389 | + + + + + +-----+ + + | | 2022-12-05 | [facility] | 0 | (missing) | (missing) | | (unavailable | 23:00:07 | [facility] | | | | + + + +-----+ + + + + | Result panel 390 | + + + + + +------+ + + | | 2022-12-05 | [facility] | // | (missing) | (missing) | | (unavailable | 23:00:07 | [facility] | | | | + + + +------+ + + + + | Result panel 391 | + + + + + +-------+---------+ + | | 2022-12-05 | [facility] | 1.3 | mg/dL | (missing) | | (unavailable | 23:00:07 | [facility] | | | | + + + +-------+---------+ + + + | Result panel 392 [...] 393 | + + + + + +-------+ + + | | 2022-12-05 | [facility] | 0.9 | (missing) | (missing) | | (unavailable | 23::07 | [facility] | | | | + + + +-------+ + + + + | Result panel 394 | + + + + + +------+ + + | | 2022-12-05 | [facility] | // | (missing) | (missing) | | (unavailable | 23:00:07 | [facility] | | | | + + + +------+ + + + + | Result panel 395 | + + + + + +------+ + + | | 2022-12-05 | [facility] | <3 | (missing) | (missing) | | (unavailable | 23:00:07 | [facility] | | | | + + + +------+ + + + + | Result panel 396 [...] 397 | + + + + + +--------+ + + | | 2022-12-05 | [facility] | 4.10 | (missing) | (missing) | | (unavailable | 23:00:07 | [facility] | | | | + + + +--------+ + + + + | Result panel 398 | + + + + + +--------+ [...] 400 | + + + + + +--------+ + + | | 2022-12-05 | [facility] | 80.2 | (missing) | (missing) | | (unavailable | 23::07 | [facility] | | | | + + + +--------+ + + + + | Result panel 401 | + + + + + +--------+ + + | | 2022-12-05 | [facility] | 25.8 | (missing) | (missing) | | (unavailable | 23:00:07 | [facility] | | | | + + + +--------+ + + + + | Result panel 402 | + + + + + +--------+ + + | | 2022-12-05 | [facility] | 32.2 | (missing) | (missing) | | (unavailable | : | [facility] | | | | + + + +--------+ + + + + | Result panel 403 | + + + + + +--------+ + + | | 2022-12-05 | [facility] | 16.1 | (missing) | (missing) | | (unavailable | ::07 | [facility] | | | | + + + +--------+ + + + + | Result panel 404 | + + + + + +-------+ + + | | 2022-12-05 | [facility] | 424 | (missing) | (missing) | | (unavailable | ::07 | [facility] | | | | + + + +-------+ + + + + | Result panel 405 | + + + + + +--------+ + + | | 2022-12-05 | [facility] | 65.5 | (missing) | (missing) | | (unavailable | 23::07 | [facility] | | | | + + + +--------+ + + + + | Result panel 406 | + + + + + +--------+ + + | | 2022-12-05 | [facility] | 26.6 | (missing) | (missing) | | (unavailable | 23:00:07 | [facility] | | | | + + + +--------+ + + + + | Result panel 407 | + + + + + +-------+ + + | | 2022-12-05 | [facility] | 7.7 | (missing) | (missing) | | (unavailable | 23:00:07 | [facility] | | | | + + + +-------+ + + + + | Result panel 408 | + + + + + +-------+ + + | | 2022-12-05 | [facility] | 0.0 | (missing) | (missing) | | (unavailable | ::07 | [facility] | | | | + + + +-------+ + + + + | Result panel 409 | + + + + + +-------+ + + | | 2022-12-05 | [facility] | 0.2 | (missing) | (missing) | | (unavailable | 23::07 | [facility] | | | | + + + +-------+ + + + + | Result panel 410 | + + + + + +-------+---------+ + | | 2022-12-05 | [facility] | 101 | mg/dL | (missing) | | (unavailable | 23:00:07 | [facility] | | | | + + + +-------+---------+ + + + | Result panel 411 | + + + + + +------+---------+ + | | 2022-12-05 | [facility] | 12 | mg/dL | (missing) | | (unavailable | 23:00:07 | [facility] | | | | + + + +------+---------+ + + + | Result panel 412 | + + + + + +--------+---------+ + | | 2022-12-05 | [facility] | 0.94 | mg/dL | (missing) | | (unavailable | 23:00:07 | [facility] | | | | + + + +--------+---------+ + + + | Result panel 413 | + + + + + +------+ + + | | 2022-12-05 | [facility] | 90 | (missing) | (missing) | | (unavailable | 23:00:07 | [facility] | | | | + + + +------+ + + + + | Result panel 414 | + + + + + +---------+ + + | | 2022-12-05 | [facility] | 12.76 | (missing) | (missing) | | (unavailable | ::07 | [facility] | | | | + + + +---------+ + + + + | Result panel 415 | + + + + + +-------+ + + | | 2022-12-05 | [facility] | 131 | (missing) | (missing) | | (unavailable | ::07 | [facility] | | | | + + + +-------+ + + + + | Result panel 416 | + + + + + +-------+ + + | | 2022-12-05 | [facility] | 3.6 | (missing) | (missing) | | (unavailable | 23:00:07 | [facility] | | | | + + + +-------+ + + + + | Result panel 417 | + + + + + +------+ + + | | 2022-12-05 | [facility] | 98 | (missing) | (missing) | | (unavailable | 23:00:07 | [facility] | | | | + + + +------+ + + + + | Result panel 418 | + + + + + +------+ + + | | 2022-12-05 | [facility] | 22 | (missing) | (missing) | | (unavailable | 23::07 | [facility] | | | | + + + +------+ + + + + | Result panel 419 | + + + + + +--------+ + + | | 2022-12-05 | [facility] | 14.6 | (missing) | (missing) | | (unavailable | ::07 | [facility] | | | | + + + +--------+ + + + + | Result panel 420 | + + + + + +-------+---------+ + | | 2022-12-05 | [facility] | 9.5 | mg/dL | (missing) | | (unavailable | 23:00:07 | [facility] | | | | + + + +-------+---------+ + + + | Result panel 421 | + + + + + +-------+ + + | | 2022-12-05 | [facility] | 8.2 | (missing) | (missing) | | (unavailable | 23:00:07 | [facility] | | | | + + + +-------+ + + + + | Result panel 422 | + + + + + +-------+ + + | | 2022-12-05 | [facility] | 3.8 | (missing) | (missing) | | (unavailable | 23:00:07 | [facility] | | | | + + + +-------+ + + + + | Result panel 423 | + + + + + +-------+ + + | | 2022-12-05 | [facility] | 4.4 | (missing) | (missing) | | (unavailable | 23:00:07 | [facility] | | | | + + + +-------+ + + + + | Result panel 424 | + + + + + +--------+ + + | | 2022-12-05 | [facility] | 0.86 | (missing) | (missing) | | (unavailable | 23:00:07 | [facility] | | | | + + + +--------+ + + + + | Result panel 425 | + + + + + +-------+ + + | | 2022-12-05 | [facility] | 0.3 | (missing) | (missing) | | (unavailable | 23:00:07 | [facility] | | | | + + + +-------+ + + + + | Result panel 426 | + + + + + +------+ + + | | 2022-12-05 | [facility] | 17 | (missing) | (missing) | | (unavailable | 23:00:07 | [facility] | | | | + + + +------+ + + + + | Result panel 427 | + + + + + +------+ + + | | 2022-12-05 | [facility] | 30 | (missing) | (missing) | | (unavailable | 23:00:07 | [facility] | | | | + + + +------+ + + + + | Result panel 428 | + + + + + +------+ + + | | 2022-12-05 | [facility] | 82 | (missing) | (missing) | | (unavailable | 23:00:07 | [facility] | | | | + + + +------+ + + + + | Result panel 429 | + + + + + +---------+ + + | | 2022-12-05 | [facility] | 2.406 | (missing) | (missing) | | (unavailable | 23:00:07 | [facility] | | | | ) | | [facility] | | | | + + + [...] 431 | + + + + + +-----+ + + | | 2022-12-05 | [facility] | 0 | (missing) | (missing) | | (unavailable | 23:00:07 | [facility] | | | | + + + +-----+ + + + + | Result panel 432 | + + + + + +------+ + + | | 2022-12-05 | [facility] | // | (missing) | (missing) | | (unavailable | 23:00:07 | [facility] | | | | + + + +------+ + + + + | Result panel 433 | + + + + + +-------+---------+ + | | 2022-12-05 | [facility] | 1.3 | mg/dL | (missing) | | (unavailable | 23:00:07 | [facility] | | | | + + + +-------+---------+ + + + | Result panel 434 | + + + + + +------+ + + | | 2022-12-05 | [facility] | // | (missing) | (missing) | | (unavailable | 23:00:07 | [facility] | | | | + + + +------+ + + + + | Result panel 435 | + + + + + +-------+ + + | | 2022-12-05 | [facility] | 0.9 | (missing) | (missing) | | (unavailable | 23:00:07 | [facility] | | | | + + + +-------+ + + + + | Result panel 436 | + + + + + +------+ + + | | 2022-12-05 | [facility] | // | (missing) | (missing) | | (unavailable | 23::07 | [facility] | | | | + + + +------+ + + + + | Result panel 437 | + + + + + +------+ + + | | 2022-12-05 | [facility] | <3 | (missing) | (missing) | | (unavailable | 23:00:07 | [facility] | | | | + + + +------+ + + + + | Result panel 438 | + + + + + +-------+ + + | | 2022-12-05 | [facility] | 8.5 | (missing) | (missing) | | (unavailable | 23:00:07 | [facility] | | | | + + + +-------+ + + + + | Result panel 439 | + + + + + +--------+ + + | | 2022-12-05 | [facility] | 4.10 | (missing) | (missing) | | (unavailable | 23:00:07 | [facility] | | | | + + + +--------+ + + + + | Result panel 440 | + + + + + +--------+ + + | | 2022-12-05 | [facility] | 10.6 | (missing) | (missing) | | (unavailable | 23:00:07 | [facility] | | | | + + + +--------+ + + + + | Result panel 441 | + + + + + +--------+ + + | | 2022-12-05 | [facility] | 32.9 | (missing) | (missing) | | (unavailable | 23:00:07 | [facility] | | | | + + + +--------+ + + + + | Result panel 442 | + + + + + +--------+ + + | | 2022-12-05 | [facility] | 80.2 | (missing) | (missing) | | (unavailable | 23:00:07 | [facility] | | | | + + + +--------+ + + + + | Result panel 443 | + + + + + +--------+ + + | | 2022-12-05 | [facility] | 25.8 | (missing) | (missing) | | (unavailable | ::07 | [facility] | | | | + + + +--------+ + + + + | Result panel 444 | + + + + + +--------+ + + | | 2022-12-05 | [facility] | 32.2 | (missing) | (missing) | | (unavailable | :00:07 | [facility] | | | | + + + +--------+ + + + + | Result panel 445 | + + + + + + [...] 455 | + + + + + +---------+ + + | | 2022-12-06 | [facility] | CLEAR | (missing) | (missing) | | (unavailable | 10:58:07 | [facility] | | | | + + + +---------+ + + + + | Result panel 456 | + + + + + +---------+ [...] 460 | + + + + + +---------+ [...] 462 | + + + + + +-------+ [...] 471 | + + + + + + [...] 474 | + + + + + + [...] 476 | + + + + + + [...] + + + + | Result panel 478 | + + + + + + + + + | | 2022-12-06 | [facility] | NEGATIVE | (missing) | (missing) | | (unavailable | 10:58:07 | [facility] | | | | + + + + + + + + + | Result panel 479 | + + + + + +---------+ + + | | 2022-12-06 | [facility] | CLEAR | (missing) | (missing) | | (unavailable | 10:58:07 | [facility] | | | | + + + +---------+ + + + + | Result panel 480 | + + + + + + + + + | | 2022-12-06 | [facility] | NEGATIVE | (missing) | (missing) | | (unavailable | 10:58:07 | [facility] | | | | + + + + + + + + + | Result panel 481 | + + + + + + + + + | | 2022-12-06 | [facility] | NEGATIVE | (missing) | (missing) | | (unavailable | 10:58:07 | [facility] | | | | + + + + + + + + + | Result panel 482 | + + + + + + + + + | | 2022-12-06 | [facility] | NEGATIVE | (missing) | (missing) | | (unavailable | 10:58:07 | [facility] | | | | + + + + + + + + + | Result panel 483 | + + + + + + + + + | | 2022-12-06 | [facility] | NEGATIVE | (missing) | (missing) | | (unavailable | 10:58:07 | [facility] | | | | + + + + + + + + + | Result panel 484 | + + + + + + + + + | | 2022-12-06 | [facility] | NEGATIVE | (missing) | (missing) | | (unavailable | 10:58:07 | [facility] | | | | + + + + + + + + + | Result panel 485 | + + + + + + + + + | | 2022-12-06 | [facility] | NEGATIVE | (missing) | (missing) | | (unavailable | 10:58:07 | [facility] | | | | + + + + + + + + + | Result panel 486 | + + + + + + + + + | | 2022-12-06 | [facility] | NEGATIVE | (missing) | (missing) | | (unavailable | 10:58:07 | [facility] | | | | + + + + + + + + + | Result panel 487 | + + + + + + + + + | | 2022-12-06 | [facility] | YELLOW | (missing) | (missing) | | (unavailable | 10:58:07 | [facility] | | | | + + + + + + + + + | Result panel 488 | + + + + + +---------+ + + | | 2022-12-06 | [facility] | CLEAR | (missing) | (missing) | | (unavailable | 10:58:07 | [facility] | | | | + + + +---------+ + + + + | Result panel 489 | + + + + + +---------+ + + | | 2022-12-06 | [facility] | LARGE | (missing) | (missing) | | (unavailable | 10:58:07 | [facility] | | | | + + + +---------+ + + + + | Result panel 490 | + + + + + + + + + | | 2022-12-06 | [facility] | NEGATIVE | (missing) | (missing) | | (unavailable | 10:58:07 | [facility] | | | | + + + + + + + + + | Result panel 491 | + + + + + + + + + | | 2022-12-06 | [facility] | NEGATIVE | (missing) | (missing) | | (unavailable | 10:58:07 | [facility] | | | | + + + + + + + + + | Result panel 492 | + + + + + +---------+ + + | | 2022-12-06 | [facility] | 1.015 | (missing) | (missing) | | (unavailable | 10:58:07 | [facility] | | | | + + + +---------+ + + + + | Result panel 493 | + + + + + + + + + | | 2022-12-06 | [facility] | NEGATIVE | (missing) | (missing) | | (unavailable | 10:58:07 | [facility] | | | | + + + + + + + + + | Result panel 494 | + + + + + + + + + | | 2022-12-06 | [facility] | NEGATIVE | (missing) | (missing) | | (unavailable | 10:58:07 | [facility] | | | | + + + + + + + + + | Result panel 495 | + + + + + +-------+ + + | | 2022-12-06 | [facility] | 6.5 | (missing) | (missing) | | (unavailable | 10:58:07 | [facility] | | | | + + + +-------+ + + + + | Result panel 496 | + + + + + + + + + | | 2022-12-06 | [facility] | NEGATIVE | (missing) | (missing) | | (unavailable | 10:58:07 | [facility] | | | | + + + + + + + + + | Result panel 497 | + + + + + + + + + | | 2022-12-06 | [facility] | NORMAL | (missing) | (missing) | | (unavailable | 10:58:07 | [facility] | | | | + + + + + + + + + | Result panel 498 | + + + + + + + + + | | 2022-12-06 | [facility] | NEGATIVE | (missing) | (missing) | | (unavailable | 10:58:07 | [facility] | | | | + + + + + + + + + | Result panel 499 | + + + + + + + + + | | 2022-12-06 | [facility] | NEGATIVE | (missing) | (missing) | | (unavailable | 10:58:07 | [facility] | | | | + + + + + + + + + | Result panel 500 | + + + + + + + + + | | 2022-12-06 | [facility] | NEGATIVE | (missing) | (missing) | | (unavailable | 10:58:07 | [facility] | | | | + + + + + + + + + | Result panel 501 | + + + + + + + + + | | 2022-12-06 | [facility] | NEGATIVE | (missing) | (missing) | | (unavailable | 10:58:07 | [facility] | | | | + + + + + + + + + | Result panel 502 | + + + + + + + + + | | 2022-12-06 | [facility] | NEGATIVE | (missing) | (missing) | | (unavailable | 10:58:07 | [facility] | | | | + + + + + + + + + | Result panel 503 | + + + + + + + + + | | 2022-12-06 | [facility] | NEGATIVE | (missing) | (missing) | | (unavailable | 10:58:07 | [facility] | | | | + + + + + + + + + | Result panel 504 | + + + + + + + + + | | 2022-12-06 | [facility] | NEGATIVE | (missing) | (missing) | | (unavailable | 10:58:07 | [facility] | | | | + + + + + + + + + | Result panel 505 | + + + + + + + + + | | 2022-12-06 | [facility] | NEGATIVE | (missing) | (missing) | | (unavailable | 10:58:07 | [facility] | | | | + + + + + + + + + | Result panel 506 | + + + + + + + + + | | 2022-12-06 | [facility] | NEGATIVE | (missing) | (missing) | | (unavailable | 10:58:07 | [facility] | | | | + + + + + + + + + | Result panel 507 | + + + + + + + + + | | 2022-12-06 | [facility] | NEGATIVE | (missing) | (missing) | | (unavailable | 10:58:07 | [facility] | | | | + + + + + + + + + | Result panel 508 | + + + + + + + + + | | 2022-12-06 | [facility] | NEGATIVE | (missing) | (missing) | | (unavailable | 10:58:07 | [facility] | | | | + + + + + + + + + | Result panel 509 | + + + + + + + + + | | 2022-12-06 | [facility] | NEGATIVE | (missing) | (missing) | | (unavailable | 10:58:07 | [facility] | | | | + + + + + + + + + | Result panel 510 | + + + + + + + + + | | 2022-12-06 | [facility] | NEGATIVE | (missing) | (missing) | | (unavailable | 10:58:07 | [facility] | | | | + + + + + + + + + | Result panel 511 | + + + + + + + + + | | 2022-12-06 | [facility] | NEGATIVE | (missing) | (missing) | | (unavailable | 10:58:07 | [facility] | | | | + + + + + + + + + | Result panel 512 | + + + + + + + + + | | 2022-12-06 | [facility] | NEGATIVE | (missing) | (missing) | | (unavailable | 10:58:07 | [facility] | | | | + + + + + + + + + | Result panel 513 | + + + + + +---------+ + + | | 2022-12-06 | [facility] | LARGE | (missing) | (missing) | | (unavailable | 10:58:07 | [facility] | | | | + + + +---------+ + + + + | Result panel 514 | + + + + + + + + + | | 2022-12-06 | [facility] | NEGATIVE | (missing) | (missing) | | (unavailable | 10:58:07 | [facility] | | | | + + + + + + + + + | Result panel 515 | + + + + + + + + + | | 2022-12-06 | [facility] | NEGATIVE | (missing) | (missing) | | (unavailable | 10:58:07 | [facility] | | | | + + + + + + + + + | Result panel 516 | + + + + + +---------+ + + | | 2022-12-06 | [facility] | 1.015 | (missing) | (missing) | | (unavailable | 10:58:07 | [facility] | | | | + + + +---------+ + + + + | Result panel 517 | + + + + + + + + + | | 2022-12-06 | [facility] | YELLOW | (missing) | (missing) | | (unavailable | 10:58:07 | [facility] | | | | + + + + + + + + + | Result panel 518 | + + + + + +---------+ + + | | 2022-12-06 | [facility] | CLEAR | (missing) | (missing) | | (unavailable | 10:58:07 | [facility] | | | | + + + +---------+ + + + + | Result panel 519 | + + + + + + + + + | | 2022-12-06 | [facility] | NEGATIVE | (missing) | (missing) | | (unavailable | 10:58:07 | [facility] | | | | + + + + + + + + + | Result panel 520 | + + + + + +---------+ + + | | 2022-12-06 | [facility] | LARGE | (missing) | (missing) | | (unavailable | 10:58:07 | [facility] | | | | + + + +---------+ + + + + | Result panel 521 | + + + + + + + + + | | 2022-12-06 | [facility] | NEGATIVE | (missing) | (missing) | | (unavailable | 10:58:07 | [facility] | | | | + + + + + + + + + | Result panel 522 | + + + + + + + + + | | 2022-12-06 | [facility] | NEGATIVE | (missing) | (missing) | | (unavailable | 10:58:07 | [facility] | | | | + + + + + + + + + | Result panel 523 | + + + + + +---------+ + + | | 2022-12-06 | [facility] | 1.015 | (missing) | (missing) | | (unavailable | 10:58:07 | [facility] | | | | + + + +---------+ + + + + | Result panel 524 | + + + + + + + + + | | 2022-12-06 | [facility] | NEGATIVE | (missing) | (missing) | | (unavailable | 10:58:07 | [facility] | | | | + + + + + + + + + | Result panel 525 | + + + + + +-------+ + + | | 2022-12-06 | [facility] | 6.5 | (missing) | (missing) | | (unavailable | 10:58:07 | [facility] | | | | + + + +-------+ + + + + | Result panel 526 | + + + + + + + + + | | 2022-12-06 | [facility] | NEGATIVE | (missing) | (missing) | | (unavailable | 10:58:07 | [facility] | | | | + + + + + + + + + | Result panel 527 | + + + + + + + + + | | 2022-12-06 | [facility] | NORMAL | (missing) | (missing) | | (unavailable | 10:58:07 | [facility] | | | | + + + + + + + + + | Result panel 528 | + + + + + + + + + | | 2022-12-06 | [facility] | NEGATIVE | (missing) | (missing) | | (unavailable | 10:58:07 | [facility] | | | | + + + + + + + + + | Result panel 529 | + + + + + + + + + | | 2022-12-06 | [facility] | NEGATIVE | (missing) | (missing) | | (unavailable | 10:58:07 | [facility] | | | | + + + + + + + + + | Result panel 530 | + + + + + +-------+ + + | | 2022-12-06 | [facility] | 6.5 | (missing) | (missing) | | (unavailable | 10:58:07 | [facility] | | | | + + + +-------+ + + + + | Result panel 531 | + + + + + + + + + | | 2022-12-06 | [facility] | NEGATIVE | (missing) | (missing) | | (unavailable | 10:58:07 | [facility] | | | | + + + + + + + + + | Result panel 532 | + + + + + + + + + | | 2022-12-06 | [facility] | NEGATIVE | (missing) | (missing) | | (unavailable | 10:58:07 | [facility] | | | | + + + + + + + + + | Result panel 533 | + + + + + + + + + | | 2022-12-06 | [facility] | NEGATIVE | (missing) | (missing) | | (unavailable | 10:58:07 | [facility] | | | | + + + + + + + + + | Result panel 534 | + + + + + + + + + | | 2022-12-06 | [facility] | NEGATIVE | (missing) | (missing) | | (unavailable | 10:58:07 | [facility] | | | | + + + + + + + + + | Result panel 535 | + + + + + + + + + | | 2022-12-06 | [facility] | NEGATIVE | (missing) | (missing) | | (unavailable | 10:58:07 | [facility] | | | | + + + + + + + + + | Result panel 536 | + + + + + + + + + | | 2022-12-06 | [facility] | NEGATIVE | (missing) | (missing) | | (unavailable | 10:58:07 | [facility] | | | | + + + + + + + + + | Result panel 537 | + + + + + + + + + | | 2022-12-06 | [facility] | NEGATIVE | (missing) | (missing) | | (unavailable | 10:58:07 | [facility] | | | | + + + + + + + + + | Result panel 538 | + + + + + + + + + | | 2022-12-06 | [facility] | NEGATIVE | (missing) | (missing) | | (unavailable | 10:58:07 | [facility] | | | | + + + + + + + + + | Result panel 539 | + + + + + + + + + | | 2022-12-06 | [facility] | NEGATIVE | (missing) | (missing) | | (unavailable | 10:58:07 | [facility] | | | | + + + + + + + + + | Result panel 540 | + + + + + + + + + | | 2022-12-06 | [facility] | NEGATIVE | (missing) | (missing) | | (unavailable | 10:58:07 | [facility] | | | | + + + + + + + + + | Result panel 541 | + + + + + + + + + | | 2022-12-06 | [facility] | NEGATIVE | (missing) | (missing) | | (unavailable | 10:58:07 | [facility] | | | | + + + + + + + + + | Result panel 542 | + + + + + + + + + | | 2022-12-06 | [facility] | NEGATIVE | (missing) | (missing) | | (unavailable | 10:58:07 | [facility] | | | | + + + + + + + + + | Result panel 543 | + + + + + + + + + | | 2022-12-06 | [facility] | NEGATIVE | (missing) | (missing) | | (unavailable | 10:58:07 | [facility] | | | | + + + + + + + + + | Result panel 544 | + + + + + + [...] 00:00 | Unknown if ever smoked | [facility] | + + + + | 2021-11-22 00:00 | Unknown if ever smoked | [facility] | + + + + | 2021-12-01 00:00 | Unknown if ever smoked | [facility] | + + + + | 2022-04-27 00:00 | Unknown if ever smoked | [facility] | + + + + | 2022-11-01 00:00 | Unknown if ever smoked | [facility] | + + + + | 2022-12-06 00:00 | Unknown if ever smoked | [facility] | + + + + | 2022-12-19 00:00 | Unknown if ever smoked | [facility] | + + + + | 2022-12-22 00:00 | Unknown if ever smoked | [facility] | + + + + | 2023-01-02 00:00 | Unknown if ever smoked | [facility] | + + + + | 2023-01-09 00:00 | Unknown if ever smoked | [facility] | + + + + Vital Signs [...] lb | + + + +---------+ | 2023-01-02 00:00 | BMI | 23.3 | kg/m2 | + + + +---------+ | 2023-01-02 00:00 | BMI | 50 | % | + + + +---------+ | 2023-01-02 00:00 | BP_diastolic | 77 | mmHg | + + + +---------+ | 2023-01-02 00:00 | BP_systolic | 115 | mmHg | + + + +---------+ | 2023-01-02 00:00 | heart_rate | 77 | /min | + + + +---------+ | 2023-01-02 00:00 | height_metric | 149.86 | cm | + + + +---------+ | 2023-01-02 00:00 | height_standard | 59 | in | + + + +---------+ | 2023-01-02 00:00 | o2_saturation | 99 | % | + + + +---------+ | 2023-01-02 00:00 | respiration_rate | 18 | /min | + + + +---------+ | 2023-01-02 00:00 | temperature_metric | 37 | C | | | | | | + + + +---------+ | 2023-01-02 00:00 | | 98.6 | F | | | temperature_standar | | | | | d | | | + + + +---------+ | 2023-01-02 00:00 | weight_metric | 52.28 | kg | + + + +---------+ | 2023-01-02 00:00 | weight_standard | 115.25 | lb | + + + +---------+ | 2023-01-02 00:00 | weight_standard | 115.26 | lb | + + + +---------+ | 2023-01-09 00:00 | BMI | 25.3 | kg/m2 | + + + +---------+ | 2023-01-09 00:00 | BMI | 50 | % | + + + +---------+ | 2023-01-09 00:00 | BP_diastolic | 87 | mmHg | + + + +---------+ | 2023-01-09 00:00 | BP_systolic | 123 | mmHg | + + + +---------+ | 2023-01-09 00:00 | heart_rate | 92 | /min | + + + +---------+ | 2023-01-09 00:00 | height_metric | 149.86 | cm | + + + +---------+ | 2023-01-09 00:00 | height_standard | 59 | in | + + + +---------+ | 2023-01-09 00:00 | o2_saturation | 100 | % | + + + +---------+ | 2023-01-09 00:00 | respiration_rate | 14 | /min | + + + +---------+ | 2023-01-09 00:00 | temperature_metric | 37 | C | | | | | | + + + +---------+ | 2023-01-09 00:00 | | 98.6 | F | | | temperature_standar | | | | | d | | | + + + +---------+ | 2023-01-09 00:00 | weight_metric | 56.81 | kg | + + + +---------+ | 2023-01-09 00:00 | weight_standard | 125.24 | lb | + + + +---------+ | 2023-01-09 00:00 | weight_standard | 125.25 | lb | + + + +---------+"
--- OUTSIDE RECORDS SUMMARY | ~2023-01-14 | XMS | Continuity of Care Document ---
Demographics + + + | Address | [address] | | | [place] [address] | + + + | Preferred Language | Unknown | + + + | Marital Status | | + + + | Yarsanism Affiliation | Unknown | + + + | Race | White | + + + | Ethnic Group | Not or | + + + Author + + + | Author | [place] | + + + | Organization | [place] | + + + | Address | [address] | | | [place] [address] | + + + | Phone | | + + + Care Team Providers + + + + | Care Traffic Rate Clerk Name | Role | Phone | + [...] | 2022-11-01 00:00 | CETIRIZINE HCL | [facility] | + + + + | 2022-12-06 00:00 | CETIRIZINE HCL | [facility] | + + + + | 2022-12-19 00:00 | CETIRIZINE HCL | [facility] | + + + + | 2022-12-22 00:00 | CETIRIZINE HCL | [facility] | + + + + | 2023-01-02 00:00 | CETIRIZINE HCL | [facility] | + + + + | 2023-01-09 00:00 | CETIRIZINE HCL | [facility] | + + + + | 2021-11-13 00:00 | CETIRIZINE HCL | [facility] | + + + + | 2021-11-22 00:00 | CETIRIZINE HCL | [facility] | + + + + | 2021-12-01 00:00 | CETIRIZINE HCL | [facility] | + + + + | 2022-04-27 00:00 | CETIRIZINE HCL | [facility] | + + + + | 2022-11-01 00:00 | CETIRIZINE HCL | [facility] | + + + + | 2022-12-06 00:00 | CETIRIZINE HCL | [facility] | + + + + | 2022-12-19 00:00 | CETIRIZINE HCL | [facility] | + + + + | 2022-12-22 00:00 | CETIRIZINE HCL | [facility] | + + + + | 2023-01-02 00:00 | CETIRIZINE HCL | [facility] | + + + + | 2023-01-09 00:00 | CETIRIZINE HCL | [facility] | + + + + | 2021-11-13 00:00 | DIPHENHYDRAMINE HCL | [facility] | + + + + | 2021-11-22 00:00 | DIPHENHYDRAMINE HCL | [facility] | + + + + | 2021-12-01 00:00 | DIPHENHYDRAMINE HCL | [facility] | + + + + | 2022-04-27 00:00 | DIPHENHYDRAMINE HCL | [facility] | + + + + | 2022-11-01 00:00 | DIPHENHYDRAMINE HCL | [facility] | + + + + | 2022-12-06 00:00 | DIPHENHYDRAMINE HCL | [facility] | + + + + | 2022-12-19 00:00 | DIPHENHYDRAMINE HCL | [facility] | + + + + | 2022-12-22 00:00 | DIPHENHYDRAMINE HCL | [facility] | + + + + | 2023-01-02 00:00 | DIPHENHYDRAMINE HCL | [facility] | + + + + | 2023-01-09 00:00 | DIPHENHYDRAMINE HCL | [facility] | + + + + | 2021-11-13 00:00 | WHEAT DEXTRIN | [facility] | + + + + | 2021-11-22 00:00 | WHEAT DEXTRIN | [facility] | + + + + | 2021-12-01 00:00 | WHEAT DEXTRIN | [facility] | + + + + | 2022-04-27 00:00 | WHEAT DEXTRIN | [facility] | + + + + | 2022-11-01 00:00 | WHEAT DEXTRIN | [facility] | + + + + | 2022-12-06 00:00 | WHEAT DEXTRIN | [facility] | + + + + | 2022-12-19 00:00 | WHEAT DEXTRIN | [facility] | + + + + | 2022-12-22 00:00 | WHEAT DEXTRIN | [facility] | + + + + | 2023-01-02 00:00 | WHEAT DEXTRIN | [facility] | + + + + | 2023-01-09 00:00 | WHEAT DEXTRIN | [facility] | + + + + | 2021-11-13 00:00 | DOCUSATE CALCIUM | [facility] | + + + + | 2021-11-22 00:00 | DOCUSATE CALCIUM | [facility] | + + + + | 2021-12-01 00:00 | DOCUSATE CALCIUM | [facility] | + + + + | 2022-04-27 00:00 | DOCUSATE CALCIUM | [facility] | + + + + | 2022-11-01 00:00 | DOCUSATE CALCIUM | [facility] | + + + + | 2022-12-06 00:00 | DOCUSATE CALCIUM | [facility] | + + + + | 2022-12-19 00:00 | DOCUSATE CALCIUM | [facility] | + + + + | 2022-12-22 00:00 | DOCUSATE CALCIUM | [facility] | + + + + | 2023-01-02 00:00 | DOCUSATE CALCIUM | [facility] | + + + + | 2023-01-09 00:00 | DOCUSATE CALCIUM | [facility] | + + + + | 2021-11-13 00:00 | FLUTICASONE PROPIONATE 50 | [facility] | | | MCG | | + + + + | 2021-11-22 00:00 | FLUTICASONE PROPIONATE 50 | [facility] | | | MCG | | + + + + | 2021-12-01 00:00 | FLUTICASONE PROPIONATE 50 | [facility] | | | MCG | | + + + + | 2022-04-27 00:00 | FLUTICASONE PROPIONATE 50 | [facility] | | | MCG | | + + + + | 2021-11-01 00:00 | CEPHALEXIN | [facility] | + + + + | 2021-11-01 00:00 | CEPHALEXIN | [facility] | + + + + | 2021-11-01 00:00 | CEPHALEXIN | [facility] | + + + + | 2021-11-13 00:00 | LITHIUM CARBONATE | [facility] | + + + + | 2021-11-22 00:00 | LITHIUM CARBONATE | [facility] | + + + + | 2021-12-01 00:00 | LITHIUM CARBONATE | [facility] | + + + + | 2022-04-27 00:00 | LITHIUM CARBONATE | [facility] | + + + + | 2022-11-01 00:00 | LITHIUM CARBONATE | [facility] | + + + + | 2022-12-06 00:00 | LITHIUM CARBONATE | [facility] | + + + + | 2022-12-19 00:00 | LITHIUM CARBONATE | [facility] | + + + + | 2022-12-22 00:00 | LITHIUM CARBONATE | [facility] | + + + + | 2023-01-02 00:00 | LITHIUM CARBONATE | [facility] | + + + + | 2023-01-09 00:00 | LITHIUM CARBONATE | [facility] | + + + + | 2021-11-13 00:00 | MELATONIN | [facility] | + + + + | 2021-11-22 00:00 | MELATONIN | [facility] | + + + + | 2021-12-01 00:00 | MELATONIN | [facility] | + + + + | 2022-04-27 00:00 | MELATONIN | [facility] | + + + + | 2022-11-01 00:00 | MELATONIN | [facility] | + + + + | 2022-12-06 00:00 | MELATONIN | [facility] | + + + + | 2022-12-19 00:00 | MELATONIN | [facility] | + + + + | 2022-12-22 00:00 | MELATONIN | [facility] | + + + + | 2023-01-02 00:00 | MELATONIN | [facility] | + + + + | 2023-01-09 00:00 | MELATONIN | [facility] | + + + + | 2021-11-13 00:00 | OLANZAPINE | [facility] | + + + + | 2021-11-22 00:00 | OLANZAPINE | [facility] | + + + + | 2021-12-01 00:00 | OLANZAPINE | [facility] | + + + + | 2022-04-27 00:00 | OLANZAPINE | [facility] | + + + + | 2022-11-01 00:00 | OLANZAPINE | [facility] | + + + + | 2022-12-06 00:00 | OLANZAPINE | [facility] | + + + + | 2022-12-19 00:00 | OLANZAPINE | [facility] | + + + + | 2022-12-22 00:00 | OLANZAPINE | [facility] | + + + + | 2023-01-02 00:00 | OLANZAPINE | [facility] | + + + + | 2023-01-09 00:00 | OLANZAPINE | [facility] | + + + + | 2021-11-13 00:00 | OLANZAPINE | [facility] | + + + + | 2021-11-22 00:00 | OLANZAPINE | [facility] | + + + + | 2021-12-01 00:00 | OLANZAPINE | [facility] | + + + + | 2022-04-27 00:00 | OLANZAPINE | [facility] | + + + + | 2021-11-13 00:00 | PRAZOSIN HCL | [facility] | + + + + | 2021-11-22 00:00 | PRAZOSIN HCL | [facility] | + + + + | 2021-12-01 00:00 | PRAZOSIN HCL | [facility] | + + + + | 2022-04-27 00:00 | PRAZOSIN HCL | [facility] | + + + + | 2022-11-01 00:00 | PRAZOSIN HCL | [facility] | + + + + | 2022-12-06 00:00 | PRAZOSIN HCL | [facility] | + + + + | 2022-12-19 00:00 | PRAZOSIN HCL | [facility] | + + + + | 2022-12-22 00:00 | PRAZOSIN HCL | [facility] | + + + + | 2023-01-02 00:00 | PRAZOSIN HCL | [facility] | + + + + | 2023-01-09 00:00 | PRAZOSIN HCL | [facility] | + + + + | 2021-11-13 00:00 | ACETAMINOPHEN | [facility] | + + + + | 2021-11-22 00:00 | ACETAMINOPHEN | [facility] | + + + + | 2021-12-01 00:00 | ACETAMINOPHEN | [facility] | + + + + | 2022-04-27 00:00 | ACETAMINOPHEN | [facility] | + + + + | 2022-11-01 00:00 | ACETAMINOPHEN | [facility] | + + + + | 2022-12-06 00:00 | ACETAMINOPHEN | [facility] | + + + + | 2022-12-19 00:00 | ACETAMINOPHEN | [facility] | + + + + | 2022-12-22 00:00 | ACETAMINOPHEN | [facility] | + + + + | 2023-01-02 00:00 | ACETAMINOPHEN | [facility] | + + + + | 2023-01-09 00:00 | ACETAMINOPHEN | [facility] | + + + + | 2022-04-27 00:00 | CIPROFLOXACIN HCL/DEXAMETH | [facility] | | | | | + + + + | 2022-12-19 00:00 | AMOXICILLIN/POTASSIUM CLAV | [facility] | | | | | + + + + | 2022-12-19 00:00 | AMOXICILLIN/POTASSIUM CLAV | [facility] | | | | | + + + + | 2021-11-13 00:00 | VENLAFAXINE HCL | [facility] | + + + + | 2021-11-22 00:00 | VENLAFAXINE HCL | [facility] | + + + + | 2021-12-01 00:00 | VENLAFAXINE HCL | [facility] | + + + + | 2022-04-27 00:00 | VENLAFAXINE HCL | [facility] | + + + + | 2022-11-01 00:00 | VENLAFAXINE HCL | [facility] | + + + + | 2022-12-06 00:00 | VENLAFAXINE HCL | [facility] | + + + + | 2022-12-19 00:00 | VENLAFAXINE HCL | [facility] | + + + + | 2022-12-22 00:00 | VENLAFAXINE HCL | [facility] | + + + + | 2023-01-02 00:00 | VENLAFAXINE HCL | [facility] | + + + + | 2021-11-13 00:00 | HYDROCODONE | [facility] | | | BIT/ACETAMINOPHEN | | + + + + | 2021-11-22 00:00 | HYDROCODONE | [facility] | | | BIT/ACETAMINOPHEN | | + + + + | 2021-12-01 00:00 | HYDROCODONE | [facility] | | | BIT/ACETAMINOPHEN | | + + + + | 2022-04-27 00:00 | HYDROCODONE | [facility] | | | BIT/ACETAMINOPHEN | | + + + + | 2022-11-01 00:00 | HYDROCODONE | [facility] | | | BIT/ACETAMINOPHEN | | + + + + | 2022-12-06 00:00 | HYDROCODONE | [facility] | | | BIT/ACETAMINOPHEN | | + + + + | 2022-12-19 00:00 | HYDROCODONE | [facility] | | | BIT/ACETAMINOPHEN | | + + + + | 2022-12-22 00:00 | HYDROCODONE | [facility] | | | BIT/ACETAMINOPHEN | | + + + + | 2023-01-02 00:00 | HYDROCODONE | [facility] | | | BIT/ACETAMINOPHEN | | + + + + | 2023-01-09 00:00 | HYDROCODONE | [facility] | | | BIT/ACETAMINOPHEN | | + + + + | 2021-11-13 00:00 | CLONIDINE HCL | [facility] | + + + + | 2021-11-22 00:00 | CLONIDINE HCL | [facility] | + + + + | 2021-12-01 00:00 | CLONIDINE HCL | [facility] | + + + + | 2022-04-27 00:00 | CLONIDINE HCL | [facility] | + + + + | 2022-11-01 00:00 | CLONIDINE HCL | [facility] | + + + + | 2022-12-06 00:00 | CLONIDINE HCL | [facility] | + + + + | 2022-12-19 00:00 | CLONIDINE HCL | [facility] | + + + + | 2022-12-22 00:00 | CLONIDINE HCL | [facility] | + + + + | 2023-01-02 00:00 | CLONIDINE HCL | [facility] | + + + + | 2023-01-09 00:00 | CLONIDINE HCL | [facility] | + + + + | 2021-11-13 00:00 | LOPERAMIDE HCL | [facility] | + + + + | 2021-11-22 00:00 | LOPERAMIDE HCL | [facility] | + + + + | 2021-12-01 00:00 | LOPERAMIDE HCL | [facility] | + + + + | 2022-04-27 00:00 | LOPERAMIDE HCL | [facility] | + + + + Problems + + + + | date | description | facility | + + + + | 2021-10-09 00:00 | Rectal hemorrhage | [facility] | + + + + | 2021-10-09 00:00 | Rectal hemorrhage | [facility] | + + + + | 2021-10-09 00:00 | Rectal hemorrhage | [facility] | + + + + | 2021-10-09 00:00 | Metal foreign body in | [facility] | | | abdomen | | + + + + | 2021-10-09 00:00 | Metal foreign body in | [facility] | | | abdomen | | + + + + | 2021-10-09 00:00 | Metal foreign body in | [facility] | | | abdomen | | [...] + + | 2021-10-09 18:07 | OTHER SENIOR LIVING (CURRENT) | [facility] | | | DRUG THERAPY | | + + + + | 2021-11-01 00:00 | Wound disruption | [facility] | + + + + | 2021-11-01 00:00 | Wound disruption | [facility] | + + + + | 2021-11-01 00:00 | Wound disruption | [facility] | + + + + | 2021-11-20 00:00 | Alcoholic intoxication | [facility] | + + + + | 2021-11-20 00:00 | Alcoholic intoxication | [facility] | + + + + | 2021-11-20 00:00 | Alcoholic intoxication | [facility] | + + + + | 2021-11-24 00:00 | Intentional ibuprofen | [facility] | | | overdose | | + + + + | 2021-11-24 00:00 | Intentional ibuprofen | [facility] | | | overdose | | + + + + | 2021-11-28 00:00 | Intentional overdose | [facility] | + + + + | 2021-11-28 00:00 | Intentional overdose | [facility] | + + + + | [...] | Blood in right ear canal | [facility] | + + + + | 2022-04-27 00:00 | Blood in right ear canal | [facility] | + + + + | [...] | 2022-10-26 00:00 | Suicidal ideation | [facility] | + + + + | 2022-10-26 00:00 | Suicidal ideation | [facility] | + + + + | 2022-10-26 00:00 | Self-cutting of wrist | [facility] | + + + + | 2022-10-26 00:00 | Self-cutting of wrist | [facility] | + + + + | 2022-10-26 18:29 | SUICIDAL IDEATIONS | [facility] | + + + + | 2022-10-26 18:29 | INTENTIONAL SELF-HARM BY | [facility] | | | UNSP SHARP OBJECT, INIT E | | + + + + | 2022-10-26 18:29 | OTHER SENIOR LIVING (CURRENT) | [facility] | | | DRUG [...] + + | 2022-12-05 22:31 | OTHER SENIOR LIVING (CURRENT) | [facility] | | | DRUG THERAPY | | + + + + | 2022-12-18 15:43 | RESIDUAL FOREIGN BODY IN | [facility] | | | SOFT TISSUE | | + + + + | 2022-12-18 15:43 | NONSUICIDAL SELF-HARM | [facility] | + + + + | 2022-12-19 00:00 | Cellulitis of right ankle | [facility] | + + + + | 2022-12-19 00:00 | Cellulitis of right ankle | [facility] | + + + + | 2022-12-19 20:38 | CELLULITIS OF RIGHT LOWER | [facility] | | | LIMB | | + + + + | 2022-12-19 20:38 | LOCALIZED SWELLING, MASS | [facility] | | | AND LUMP, RIGHT LOWER LIMB | | + + + + | 2022-12-19 20:38 | OTHER WASHER MACHINE (CURRENT) | [facility] | | | DRUG THERAPY | | + + + + | 2022-12-22 00:00 | Contusion of left lower | [facility] | | | leg | | + + + + | 2022-12-22 00:00 | Contusion of left lower | [facility] | | | leg | | [...] + + | 2022-12-22 18:51 | OTHER SENIOR LIVING (CURRENT) | [facility] | | | DRUG THERAPY | | + + + + | 2023-01-02 00:00 | Sprain of wrist | [facility] | + + + + | 2023-01-02 00:00 | Sprain of wrist | [facility] | + + + + | [...] + + | 2023-01-02 09:20 | OTHER SENIOR LIVING (CURRENT) | [facility] | | | DRUG THERAP[facility] | | + + + + | 2023-01-04 18:18 | OTHER SPECIFIED SOFT | [facility] | | | TISSUE DISORDERS | | + + + + | 2023-01-04 18:18 | FEVER, UNSPECIFIED | [facility] | + + + + | 2023-01-09 00:00 | History of swallowed | [facility] | | | foreign body | | + + + + | 2023-01-09 18:46 | FOREIGN BODY OF ALIMENTARY | [facility] | | | TRACT, PART UNSP, INIT | | | | ENCNTR | | + + + + | 2023-01-09 18:46 | OTHER WASHER MACHINE (CURRENT) | [facility] | | | DRUG THERAPY | | + + + + Procedures + + + + | date | description | facility | + + + + | 2021-10-10 00:00 | EXTIRPATION OF MATTER FROM | [facility] | | | TONSILS, OPEN APPROACH | | + + + + | 2021-10-10 00:00 | EXTIRPATION OF MATTER FROM | [facility] | | | TONSILS, OPEN APPROACH | | + + + + | 2021-10-10 00:00 | EXTIRPATION OF MATTER FROM | [facility] | | | PERITONEAL CAVITY, OPEN | | | | APPROACH | | + + + + | 2021-10-10 00:00 | EXTIRPATION OF MATTER FROM | [facility] | | | PERITONEAL CAVITY, OPEN | | | | APPROACH | | + + + + | 2021-10-09 00:00 | REMOVE PHARYNX FOREIGN | [facility] | | | BODY | | + + + + | 2021-10-09 00:00 | REMOVE PHARYNX FOREIGN | [facility] | | | BODY | | + + + + | 2021-10-09 00:00 | REMOVE PHARYNX FOREIGN | [facility] | | | BODY | | + + + + | 2021-10-09 00:00 | REMOVE RECTAL OBSTRUCTION | [facility] | + + + + | 2021-10-09 00:00 | REMOVE RECTAL OBSTRUCTION | [facility] | + + + + | 2021-10-09 00:00 | REMOVE RECTAL OBSTRUCTION | [facility] | + + + + | 2021-10-09 00:00 | REMOVE FOREIGN BODY | [facility] | | | ADBOMEN | | + + + + | 2021-10-09 00:00 | REMOVE FOREIGN BODY | [facility] | | | ADBOMEN | | + + + + | 2021-10-09 00:00 | REMOVE FOREIGN BODY | [facility] | | | ADBOMEN | | [...] (missing) | | (unavailable | 19:40 | [facility] | | | | | ) | [...] (missing) | | (unavailable | 23:30:08 | [facility] | | | | | ) | [...] (missing) | | (unavailable | 23:00:07 | [facility] | | | | | [...] | Unknown if ever smoked | [facility] | + + + + | 2021-11-22 00:00 | Unknown if ever smoked | [facility] | + + + + | 2021-12-01 00:00 | Unknown if ever smoked | [facility] | + + + + | 2022-04-27 00:00 | Unknown if ever smoked | [facility] | + + + + | 2022-11-01 00:00 | Unknown if ever smoked | [facility] | + + + + | 2022-12-06 00:00 | Unknown if ever smoked | [facility] | + + + + | 2022-12-19 00:00 | Unknown if ever smoked | [facility] | + + + + | 2022-12-22 00:00 | Unknown if ever smoked | [facility] | + + + + | 2023-01-02 00:00 | Unknown if ever smoked | [facility] | + + + + | 2023-01-09 00:00 | Unknown if ever smoked | [facility] | + + + + Vital [...]
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
[2023-01-14 20:45] LABS: BASOPHILS 0.1 % (0-2); HEMATOCRIT 30.6 % (35.0-50.0); HEMOGLOBIN 9.7 g/dL (12.0-18.0); LYMPHOCYTES 10.4 % (24-44); MCH 24.4 (27-36); MCHC 31.8 g/dl (30-36); MCV 76.6 fl (81-99); MONOCYTES 7.1 % (0-12); NEUTROPHILS 82.4 % (39-80); PLATELET COUNT 333 K/uL (140-440); RBC 3.99 M/ul (4.3-5.7); RDW 15.2 (10.5-15.0)
[2023-01-14 21:02] LABS: ALBUMIN 3.6 g/dL (3.4-5.0); ALBUMIN/GLOBULIN RATIO 0.82 (1.1-2.4); ANION GAP 13.8 (7-21); BILIRUBIN, TOTAL 0.8 ng/dL (0.2-1.0); BUN/CREATININE RATIO 8.69 (6.0-28.6); CALCIUM 9.7 mg/dL (8.5-10.1); CREATININE, SERUM 0.69 mg/dL (0.55-1.02); POTASSIUM 3.8 mmol/L (3.5-5.1)
[2023-01-14 21:06] LABS: BILIRUBIN, URINE NEGATIVE (negative); BLOOD/HGB, URINE NEGATIVE (Negative); KETONE, URINE NEGATIVE (Negative); LEUK ESTERASE, URINE NEGATIVE (negative); NITRITE, URINE NEGATIVE (negative)
[2023-01-15 00:17] LABS: INFLUENZA B NAA NEGATIVE (NEGATIVE); RESPIRATORY SYNCYTIAL VIR NAA NEGATIVE (NEGATIVE)
[2023-01-15 02:40] VITALS: BP 95/48
== END 2023-01-15 02:41 | disposition short-term general hospital (02) ==
LOC: ED 19:48
PROVIDERS: Family Medicine
DX: T18.2XXA Foreign body in stomach, initial encounter (principal); T18.3XXA Foreign body in small intestine, initial encounter; K29.80 Duodenitis without bleeding; Z88.8 Allergy status to other drugs, medicaments and biological substances; Z79.899 Other long term (current) drug therapy; Z20.822 Contact with and (suspected) exposure to COVID-19
CPT/HCPCS: 36415; 74177; 80053; 81003; 83690; 84703; 85025; 87502; 96375; 99284-25; C9803; J2270; J2405; J7030; Q9967; U0002